=== PATIENT | male | born 1960 | race Caucasian/White ===

== ENCOUNTER 2019-12-16 10:30 | Outpatient (CLI) | payer MEDICAID, SELFPAY ==
--- NOTE | 2019-12-16 10:34 | MR_ITS ---
WS: [id number] MRI CERVICAL SPINE HISTORY: CERVICAL DEGENERATIVE JOINT DISEASE COMPARISON: Cervical spine CT 06/18/2015. Normal cervical alignment. No marrow edema or fracture. There is mild disc desiccation throughout. Endplate osteophytes throughout the cervical spine. Signal within the cord is normal. Craniocervical junction, C1 and C2 relationship, odontoid process and soft tissues are normal. C2-C3: Shallow central disc protrusion without stenosis. C3-C4: Mild osteophytic ridging. No significant stenosis. C4-C5: Diffuse annular disc bulging and mild osteophytic ridging. There is effacement of ventral CSF and facet joint arthritis. Mild central and bilateral foraminal stenosis. C5-C6: Complete effacement of CSF. There is significant deformity of the thecal sac due to combinatio n of disc and osteophyte disease. Moderate to severe central and bilateral foraminal stenosis. C6-C7: Mild annular disc bulging bilateral disc osteophyte complexes, greatest on the LEFT causing mi ld narrowing of the proximal foramen. Mild bilateral foraminal narrowing and mild central stenosis. C7-T1: Normal. Paraspinal soft tissue are normal. MR/MR cervical spin wo con* [id number] IMPRESSION: 1. Quality of examination is limited by body habitus. 2. Moderate to severe central and bilateral foraminal stenosis at C5-6 due to combination of disc and facet disease. 3. Mild central and bilateral foraminal stenosis at C4-5 due to disc osteophyt e disease. 4. Mild central and bilateral foraminal stenosis at C6-7 due to disc osteophyt e disease.
== END 2019-12-16 10:31 | disposition home or self-care (01) ==
LOC: RADSHAW 10:33
PROVIDERS: PCP Nurse Practitioner Family; Visit Provider Nurse Practitioner Family
DX: M47.812 Spondylosis without myelopathy or radiculopathy, cervical region (principal); M48.02 Spinal stenosis, cervical region; M25.78 Osteophyte, vertebrae
CPT/HCPCS: 72141

== ENCOUNTER 2020-02-22 07:43 | Outpatient (CLI) | payer MEDICAID, SELFPAY ==
--- NOTE | 2020-02-22 07:56 | MR_ITS ---
WS: [id number] MRI LUMBAR SPINE NONCONTRAST TECHNIQUE: Sagittal T1, T2 and STIR imaging. Axial T1 and T2 imaging. CLINICAL INFORMATION: LOW BACK PAIN COMPARISON: November 03, 2014 FINDINGS: Normal lumbar alignment. No acute compression. Mild disc bulging L2-3, L3-4, L4-5. No acute compressi on fractures. Disc bulging L2-L3 and L3-L4 progressed since 2014 L1-L2: Normal. L2-L3: Shallow broad-based disc bulging with impingement on the left subarticular recess and traversi ng left L3 nerve root. Moderate central canal stenosis. Small bilateral foraminal protrusions with co ntact of the exiting L2 nerve roots bilaterally with mild to moderate foraminal narrowing. L3-L4: Mild annular bulging. Slight effacement of ventral thecal sac. Mild central canal stenosis. Sm all right foraminal protrusion with mild right and no significant left foraminal narrowing. Mild face t arthropathy. L4-L5: Mild disc bulging with slight effacement of ventral thecal sac. Impingement on the left subart icular recess and traversing left L5 nerve root. Mild central canal stenosis. Left foraminal protrusi on with contact of the far exiting left L4 nerve root. Mild bilateral foraminal narrowing. Mild facet arthropathy. L5-S1: No significant disc bulging. Mild facet arthropathy. Spinal canal and foramen are patent. Visualized pelvic bony structures: Normal. Paravertebral soft tissues: Normal. MR/MR lumbar spine wo con* [id number] IMPRESSION: 1. Normal lumbar alignment. No acute compression. Disc bulging worse at L2-L3 L3-L4 and L4-L5. 2. Moderate central canal stenosis L2-3 with impingement on the left subarticu lar recess and traversing left L3 nerve root. 3. Mild central canal stenosis L3-L4 and L4-L5. 4. Small foraminal protrusions worse at right L2-3, and left L4-5 with encroac hment on the exiting nerve roots at these levels. 5. Mild to moderate facet arthropathy L3-L5.
== END 2020-02-22 07:44 | disposition home or self-care (01) ==
LOC: RADWPI 07:45
PROVIDERS: PCP Nurse Practitioner Family; Visit Provider Neurological Surgery
DX: R27.0 Ataxia, unspecified (principal); M51.26 Other intervertebral disc displacement, lumbar region; M48.061 Spinal stenosis, lumbar region without neurogenic claudication; M47.816 Spondylosis without myelopathy or radiculopathy, lumbar region
CPT/HCPCS: 72148

== ENCOUNTER 2021-10-28 14:36 | Emergency (ER) | payer MEDICAID, SELFPAY ==
[2021-10-28] VITALS (7 sets, daily range): BP systolic 102–153; BP diastolic 57–80; PULSE 66–86; RESP 16–18; TEMP 36.4; O2SAT 93–98; BMI 28.2
--- NOTE | 2021-10-28 16:43 | ED_ITS ---
Documented by User: Maggy Meyer MD 10/28/21 18:30 HPI - General Adult General: Chief complaint: General Medical Stated complaint: Abd pains, N/V, hurting all over Time Seen by Provider: 10/28/21 16:25 History of Present Illness: This patient is a 61 year old male presenting with complaint of hurting all over. He is having pain all over his body but worse on the right side. He says that it started 7 days ago but got worse 3 days ago and he hasn't been able to get out bed since Friday. He has had chills and sweats - he hasn't taken his temp. He has had nausea and hasn't eaten or drank anything since Friday. He apparently hasn't urinated since Friday either. He denies sore throat, runny nose. He did have a headache but gone now, and he has a chronic cough from smoking. He has had heart attacks but says that this doesn't feel like a heart attack. Nothing makes his symptoms better or worse. He has not taken anything at home to treat the symptoms. Associated symptoms: Reports diaphoresis, malaise and nausea; Deny chest pain, dyspnea, headache(s), rash or vomiting Review of Systems Const: Reports: chills, body aches, change in appetite, fatigue, malaise and diaphoresis Eyes: Denies: change in vision ENMT: Denies: odynophagia Card: Denies: chest pain or swelling of feet/ankles Resp: Reports: productive cough; Denies: dyspnea or non-productive cough GI: Reports: nausea; Denies: abdominal pain, vomiting or diarrhea : Reports: oliguria; Denies: flank pain Musc: Reports: neck pain and back pain Skin/Breast: Denies: rash Neuro: Reports: weakness in extremities; Denies: headache(s) or numbness in extremities Endo: Denies: polydipsia [place]/Lymph: Denies: easy bruising or easy bleeding PFSH ED PFSH: Medical History Bipolar disorder CAD (coronary atherosclerotic disease) Chest pain, atypical COPD (chronic obstructive pulmonary disease) Dyslipidemia 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 HTN (hypertension) Ischemic cardiomyopathy Myocardial infarct, old PAD (peripheral artery disease) Tobacco abuse Surgical History S/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) Family History Father Cancer Social History (Updated 01/18/20 @ 11:12 by EMBER Camilo) Smoking and tobacco status: current every day smoker Alcohol intake: never Current gender identity: Male Physical Exam Const: COMMON NORMALS: no acute distress, patient oriented x3, no limitations and alert GENERAL APPEARANCE: cooperative and comfortable HENMT: HEAD & SCALP: normal to inspection FACE & SINUS: normal facial exam Eye: GENERAL EYE: appearance normal, both eyes and all related structures Neck/C-Spine: COMMON NORMALS: supple, no meningeal signs and no JVD Chest: COMMONS NORMALS: normal inspection of the chest Resp: COMMON NORMALS: normal respiratory effort, No use of accessory muscles and clear to auscultation bilaterally AUSCULTATION: clear to auscultation bilaterally Cardio: COMMON NORMALS: no JVD, regular rate, regular rhythm and No murmurs present (Cardio) RATE: regular rate RHYTHM: regular rhythm GI: COMMON NORMALS: Normal to inspection, nondistended, normoactive bowel sounds present, Soft to palpation and non-tender INSPECTION: Yes normal to inspection AUSCULTATION: Yes normoactive bowel sounds PALPATION: Yes Soft to palpation Back/Pelvis: COMMON NORMALS: thoracic and lumbar spine normal to inspection Extremity: COMMON NORMALS: normal to inspection Neuro: COMMON NORMALS: patient oriented x3, moves all extremities, no focal motor deficits and no sensory deficits noted SENSORIUM/ORIENTATION: Yes alert MENINGEAL SIGNS: Yes no meningeal signs Psych: COMMON NORMALS: mental status grossly normal, cooperative and normal affect Skin: COMMON NORMALS: no rashes or lesions noted and turgor normal GENERAL SKIN EXAM: no rashes or lesions noted and turgor normal Course Vital Signs: Vital signs: Vital Signs Temperature 97.5 F L 10/28/21 14:57 Pulse Rate 66 10/28/21 20:00 Respiratory Rate 16 10/28/21 20:00 Blood Pressure 121/69 10/28/21 20:00 Pulse Oximetry 93 10/28/21 20:00 Oxygen Delivery Me thod 10/28/21 18:32 MDM - General Adult Medical Decision Making Generalized body aches for a week - no focal neuro findings. No abdominal tenderness. Labs with normal CBC, elevated LFTs but only slightly. Some evidence of dehydration. IV fluids going. UA pending. Care turned over to Dr. Long at shift change. Lab Data : 10/28/21 16:55 10/28/21 16:55 Laboratory Results WBC 5.3 10^3/uL (4.0-10.0) 10/28/21 16:55 RBC 4.94 10^6/uL (4.1-5.3) 10/28/21 16:55 Hgb 15.0 g/dL (11.7-16.6) 10/28/21 16:55 Hct 44.4 % (42.0-52.0) 10/28/21 16:55 MCV 89.9 fl (80-94) 10/28/21 16:55 MCH 30.4 pg (28.0-34.0) 10/28/21 16:55 MCHC 33.8 g/dL (30.0-36.0) 10/28/21 16:55 RDW 12.1 % (12.1-15.1) 10/28/21 16:55 Plt Count 130 10^3/cmm (130-400) 10/28/21 16:55 MPV 9.9 fL (7.4-10.4) 10/28/21 16:55 Neut % (Auto) 62.3 % 10/28/21 16:55 Lymph % (Auto) 20.9 % 10/28/21 16:55 [place] % (Auto) 15.0 % 10/28/21 16:55 Eos % (Auto) 0.6 % 10/28/21 16:55 Baso % (Auto) 0.8 % 10/28/21 16:55 Neut # (Auto) 3.29 10^3/uL (1.8-7.7) 10/28/21 16:55 Lymph # (Auto) 1.1 10^3/uL (0.8-4.8) 10/28/21 16:55 [place] # (Auto) 0.8 10^3/uL (0.2-0.9) 10/28/21 16:55 Eos # (Auto) 0.0 10^3/uL (0.0-0.8) 10/28/21 16:55 Baso # (Auto) 0.0 10^3/uL (0.0-0.1) 10/28/21 16:55 Nucleated RBC % (auto) 0 % 10/28/21 16:55 Nucleated RBCs # 0.0 /100WBC 10/28/21 16:55 Sodium 134 mmol/L (136-145) L 10/28/21 16:55 Potassium 4.1 mmol/L (3.5-5.1) 10/28/21 16:55 Chloride 98 mmol/L (98-107) 10/28/21 16:55 Carbon Dioxide 23 mmol/L (22-29) 10/28/21 16:55 Anion Gap 17.1 (5-19) 10/28/21 16:55 BUN 16 mg/dL (8-23) 10/28/21 16:55 Creatinine 1.1 mg/dL (0.7-1.2) 10/28/21 16:55 GFR Calculation 67.8 mL/min (90-130) L 10/28/21 16:55 Glucose 102 mg/dL (65-115) 10/28/21 16:55 Calculated Osmolality 279 mOsm/kg (285-295) L 10/28/21 16:55 Calcium 9.5 mg/dL (8.5-10.5) 10/28/21 16:55 Total Bilirubin 0.3 mg/dL (0.15-1.2) 10/28/21 16:55 AST 51 U/L (0-40) H 10/28/21 16:55 ALT 77 U/L (0-41) H 10/28/21 16:55 Alkaline Phosphatase 80 U/L (40-130) 10/28/21 16:55 Creatine Kinase 116 U/L (39-308) 10/28/21 16:55 Total Protein 7.6 g/dL (6.6-8.7) 10/28/21 16:55 Albumin 4.5 g/dL (3.5-5.2) 10/28/21 16:55 Globulin 3.1 g/dL (1.3-4.6) 10/28/21 16:55 Urine Color Yellow (Yellow) 10/28/21 19:11 Urine Appearance Clear (CLEAR) 10/28/21 19:11 Urine pH 5 (5-7) 10/28/21 19:11 Ur Specific [place] 1.020 (1.005-1.030) 10/28/21 19:11 Urine Protein Neg (Negative) 10/28/21 19:11 Urine Glucose (UA) 1+ (Normal) H 10/28/21 19:11 Urine Ketones 1+ (Negative) H 10/28/21 19:11 Urine Blood 2+ (Negative) H 10/28/21 19:11 Urine Nitrate Negative (Negative) 10/28/21 19:11 Urine Bilirubin Neg (Negative) 10/28/21 19:11 Urine Urobilinogen Norm mg/dL (Negative) 10/28/21 19:11 Ur Leukocyte Esterase Negative (Negative) 10/28/21 19:11 Urine RBC 0-4 /hpf (0-2) H 10/28/21 19:11 Urine WBC 0-4 /hpf (0-5) H 10/28/21 19:11 Ur Squamous Epith Cells 0-4 /hpf (0-5) H 10/28/21 19:11 Amorphous Sediment Not Reportable 10/28/21 19:11 Urine Bacteria Trace /hpf (NONE) 10/28/21 19:11 Hyaline Casts 0-4 /lpf H 10/28/21 19:11 Urine Mucus 2+ /hpf 10/28/21 19:11 Discharge Plan Discharge Patient Disposition: Home Clinical Impression: Acute dehydration, Myalgia Condition: Stable Prescriptions: No Action aspirin [Adult Low Dose Aspirin] 81 mg tablet,delayed release (DR/EC) 81 mg PO DAILY nitroglycerin [Nitrostat] 0.4 mg tablet, sublingual 0.4 mg SUBLINGUAL Q5M PRN (Reason: Chest Pain) spironolactone 25 mg tablet 25 mg PO DAILY 90 Days Qty: 90 3RF clopidogrel 75 mg tablet 75 mg PO DAILY Qty: 90 3RF carvedilol 3.125 mg tablet 3.125 mg PO BID Qty: 180 3RF lisinopril 20 mg tablet 20 mg PO DAILY Focus Factor 1 cap PO DAILY simvastatin 40 mg tablet 40 mg PO BEDTIME Discharge Orders: Discharge ED (Routine); Ordered 10/28/21 Ordered By: Dustin Long Referrals: Angelita Goss FNP [Primary Care Provider] - 1-3 days Patient Instructions: Myalgia, Dehydration (ED) Activity Restrictions/Additional Instructions: Monitor closely for fever. Hydrate orally, especially for the next 48 hours. Stay out of the heat. See your doctor this coming week and follow-up. Return for significant fever, change in mental status, worsening pain, other concerning symptoms. Call for the results of your COVID-19 test as early as tomorrow. 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 HTN (hypertension) Ischemic cardiomyopathy Myocardial infarct, old PAD (peripheral artery disease) Tobacco abuse Surgical History 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 No abdominal tenderness. Labs with normal CBC, elevated LFTs but only slightly. Some evidence of dehydration. IV fluids going. UA pending. Care turned over to Dr. Long at shift change. Urinalysis is negative. Labs are mildly underwhelming. With mild transaminitis, COVID-19 could be considered. He has been hydrated in the ER and is feeling improved. He will be discharged home for oral hydration. COVID-19 PCR will be done on discharge. Tick panel will also be sent. Lab Data : 10/28/21 16:55 10/28/21 16:55 Laboratory Results WBC 5.3 10^3/uL (4.0-10.0) 10/28/21 16:55 RBC 4.94 10^6/uL (4.1-5.3) 10/28/21 16:55 Hgb 15.0 g/dL (11.7-16.6) 10/28/21 16:55 Hct 44.4 % (42.0-52.0) 10/28/21 16:55 MCV 89.9 fl (80-94) 10/28/21 16:55 MCH 30.4 pg (28.0-34.0) 10/28/21 16:55 MCHC 33.8 g/dL (30.0-36.0) 10/28/21 16:55 RDW 12.1 % (12.1-15.1) 10/28/21 16:55 Plt Count 130 10^3/cmm (130-400) 10/28/21 16:55 MPV 9.9 fL (7.4-10.4) 10/28/21 16:55 Neut % (Auto) 62.3 % 10/28/21 16:55 Lymph % (Auto) 20.9 % 10/28/21 16:55 [place] % (Auto) 15.0 % 10/28/21 16:55 Eos % (Auto) 0.6 % 10/28/21 16:55 Baso % (Auto) 0.8 % 10/28/21 16:55 Neut # (Auto) 3.29 10^3/uL (1.8-7.7) 10/28/21 16:55 Lymph # (Auto) 1.1 10^3/uL (0.8-4.8) 10/28/21 16:55 [place] # (Auto) 0.8 10^3/uL (0.2-0.9) 10/28/21 16:55 Eos # (Auto) 0.0 10^3/uL (0.0-0.8) 10/28/21 16:55 Baso # (Auto) 0.0 10^3/uL (0.0-0.1) 10/28/21 16:55 Nucleated RBC % (auto) 0 % 10/28/21 16:55 Nucleated RBCs # 0.0 /100WBC 10/28/21 16:55 Sodium 134 mmol/L (136-145) L 10/28/21 16:55 Potassium 4.1 mmol/L (3.5-5.1) 10/28/21 16:55 Chloride 98 mmol/L (98-107) 10/28/21 16:55 Carbon Dioxide 23 mmol/L (22-29) 10/28/21 16:55 Anion Gap 17.1 (5-19) 10/28/21 16:55 BUN 16 mg/dL (8-23) 10/28/21 16:55 Creatinine 1.1 mg/dL (0.7-1.2) 10/28/21 16:55 GFR Calculation 67.8 mL/min (90-130) L 10/28/21 16:55 Glucose 102 mg/dL (65-115) 10/28/21 16:55 Calculated Osmolality 279 mOsm/kg (285-295) L 10/28/21 16:55 Calcium 9.5 mg/dL (8.5-10.5) 10/28/21 16:55 Total Bilirubin 0.3 mg/dL (0.15-1.2) 10/28/21 16:55 AST 51 U/L (0-40) H 10/28/21 16:55 ALT 77 U/L (0-41) H 10/28/21 16:55 Alkaline Phosphatase 80 U/L (40-130) 10/28/21 16:55 Creatine Kinase 116 U/L (39-308) 10/28/21 16:55 Total Protein 7.6 g/dL (6.6-8.7) 10/28/21 16:55 Albumin 4.5 g/dL (3.5-5.2) 10/28/21 16:55 Globulin 3.1 g/dL (1.3-4.6) 10/28/21 16:55 Urine Color Yellow (Yellow) 10/28/21 19:11 Urine Appearance Clear (CLEAR) 10/28/21 19:11 Urine pH 5 (5-7) 10/28/21 19:11 Ur Specific [place] 1.020 (1.005-1.030) 10/28/21 19:11 Urine Protein Neg (Negative) 10/28/21 19:11 Urine Glucose (UA) 1+ (Normal) H 10/28/21 19:11 Urine Ketones 1+ (Negative) H 10/28/21 19:11 Urine Blood 2+ (Negative) H 10/28/21 19:11 Urine Nitrate Negative (Negative) 10/28/21 19:11 Urine Bilirubin Neg (Negative) 10/28/21 19:11 Urine Urobilinogen Norm mg/dL (Negative) 10/28/21 19:11 Ur Leukocyte Esterase Negative (Negative) 10/28/21 19:11 Urine RBC 0-4 /hpf (0-2) H 10/28/21 19:11 Urine WBC 0-4 /hpf (0-5) H 10/28/21 19:11 Ur Squamous Epith Cells 0-4 /hpf (0-5) H 10/28/21 19:11 Amorphous Sediment Not Reportable 10/28/21 19:11 Urine Bacteria Trace /hpf (NONE) 10/28/21 19:11 Hyaline Casts 0-4 /lpf H 10/28/21 19:11 Urine Mucus 2+ /hpf 10/28/21 19:11 Discharge Plan Discharge Patient Disposition: Home Clinical Impression: Acute dehydration, Myalgia Condition: Stable Prescriptions: No Action aspirin [Adult Low Dose Aspirin] 81 mg tablet,delayed release (DR/EC) 81 mg PO DAILY nitroglycerin [Nitrostat] 0.4 mg tablet, sublingual 0.4 mg SUBLINGUAL Q5M PRN (Reason: Chest Pain) spironolactone 25 mg tablet 25 mg PO DAILY 90 Days Qty: 90 3RF clopidogrel 75 mg tablet 75 mg PO DAILY Qty: 90 3RF carvedilol 3.125 mg tablet 3.125 mg PO BID Qty: 180 3RF lisinopril 20 mg tablet 20 mg PO DAILY Focus Factor 1 cap PO DAILY simvastatin 40 mg tablet 40 mg PO BEDTIME Discharge Orders: Discharge ED (Routine); Ordered 10/28/21 Ordered By: Dustin Long Referrals: Angelita Goss FNP [Primary Care Provider] - 1-3 days Patient Instructions: Myalgia, Dehydration (ED) Activity Restrictions/Additional Instructions: Monitor closely for fever. Hydrate orally, especially for the next 48 hours. Stay out of the heat. See your doctor this coming week and follow-up. Return for significant fever, change in mental status, worsening pain, other concerning symptoms. Call for the results of your COVID-19 test as early as tomorrow. Serum testing for tick fever will be completed in 48 to 72 hours Coding Level of Care Code ED [employer] for Katarzyna Fwcourtney Exam Comprehensive
[2021-10-28] MEDS: ondansetron 2 mg/ML SDV 2 mL 4 MG IVP (16:58)
[2021-10-28] MEDS: sodium chloride 0.9% 1,000 ML 999 ML IV (16:58)
[2021-10-28 17:13] LABS: Basophils % 0.8 %; Eosinophils % 0.6 %; Hematocrit 44.4 % (42.0-52.0); Lymphocytes # 1.1 10^3/uL (0.8-4.8); Lymphocytes % 20.9 %; Mean Corpuscular HGB Conc 33.8 g/dL (30.0-36.0); Mean Corpuscular Hemoglobin 30.4 pg (28.0-34.0); Mean Corpuscular Volume 89.9 fl (80-94); Mean Platelet Volume 9.9 fL (7.4-10.4); Monocytes # 0.8 10^3/uL (0.2-0.9); Neutrophils # 3.29 10^3/uL (1.8-7.7); Neutrophils % 62.3 %; Nucleated Red Blood Cells % 0 %; Platelet Count 130 10^3/cmm (130-400); Red Blood Count 4.94 10^6/uL (4.1-5.3); Red Cell Distribution Width 12.1 % (12.1-15.1); White Blood Count 5.3 10^3/uL (4.0-10.0)
[2021-10-28 17:37] LABS: Alanine Aminotransferase 77 U/L (0-41); Albumin Level 4.5 g/dL (3.5-5.2); Alkaline Phosphatase 80 U/L (40-130); Anion Gap 17.1 (5-19); Aspartate Amino Transferase 51 U/L (0-40); Blood Urea Nitrogen 16 mg/dL (8-23); Calcium 9.5 mg/dL (8.5-10.5); Carbon Dioxide 23 mmol/L (22-29); Chloride 98 mmol/L (98-107); Creatine Phosphokinase 116 U/L (39-308); Globulin 3.1 g/dL (1.3-4.6); Glomerular Filtration Rate 67.8 mL/min (90-130); Glucose 102 mg/dL (65-115); Osmolality Calculated 279 mOsm/kg (285-295); Potassium 4.1 mmol/L (3.5-5.1); Sodium 134 mmol/L (136-145); Total Bilirubin 0.3 mg/dL (0.15-1.2); Total Protein 7.6 g/dL (6.6-8.7)
[2021-10-28] MEDS: ketorolac 30 mg/mL INJ 15 MG IVP (18:29)
[2021-10-28 20:28] LABS: Protein Urine Neg (Negative); Urine Appearance Clear (CLEAR); Urine Color Yellow (Yellow); pH Urine 5 (5-7)
[2021-10-28 20:29] LABS: Add Urine Microscopic? YES; Bilirubin Urine Neg (Negative); Blood Urine 2+ (Negative); Glucose Urine UA 1+ (Normal); Ketones Urine 1+ (Negative); Leukocyte Esterase Urine Negative (Negative); Nitrate Urine Negative (Negative); Urobilinogen Urine Norm (Negative)
[2021-10-28 20:30] LABS: Add Urine Culture? No; Bacteria Urine TRACE /hpf; Hyaline Casts Urine 0-4 /lpf; Mucus Urine 2+ /hpf; RBC Urine 0-4 /hpf (0-2); Squamous Epithelial Cell Urine 0-4 /hpf (0-5); WBC Urine 0-4 /hpf (0-5)
[2021-10-28] MEDS: dexamethasone 4 mg/mL INJ 8 MG IVP (21:22)
[2021-10-28 23:27] LABS: Adenovirus Not Detected (NOT DETECT); Chlamydia Pneumoniae Not Detected (NOT DETECT); Coronavirus 229E,HKU1,NL63,OC4 Not Detected (NOT DETECT); Human Metapneumovirus Not Detected (NOT DETECT); Human Rhinovirus/Enterovirus Not Detected (NOT DETECT); Influenza A Not Detected (NOT DETECT); Influenza A H1 Not Detected (NOT DETECT); Influenza A H1-2009 Not Detected (NOT DETECT); Influenza A H3 Not Detected (NOT DETECT); Influenza B Not Detected (NOT DETECT); Mycoplasma Pneumoniae Not Detected (NOT DETECT); Parainfluenza Virus Type 1 Not Detected (NOT DETECT); Parainfluenza Virus Type 2 Not Detected (NOT DETECT); Parainfluenza Virus Type 3 Not Detected (NOT DETECT); Parainfluenza Virus Type 4 Not Detected (NOT DETECT); Respiratory Syncytial Virus A Not Detected (NOT DETECT); Respiratory Syncytial Virus B Not Detected (NOT DETECT); SARS-COV-2 Detected (NOT DETECT)
[2021-10-29 00:26] VITALS: BP 132/49; PULSE 70; RESP 18; O2SAT 94
[2021-10-30 14:33] LABS: Lyme AB Screen <0.90 index
[2021-11-03 21:07] LABS: E. Chaffeensis AB IGG <1:64; E. Chaffeensis AB IGM <1:20
[2021-11-17 16:03] LABS: RMSF IGG DETECTED; RMSF IGM NOT DETECTED
== END 2021-10-29 00:27 | disposition home or self-care (01) ==
PROVIDERS: Emergency Medicine; Emergency Provider Emergency Medicine; PCP Nurse Practitioner Family
DX: U07.1 COVID-19 (principal); E86.0 Dehydration; M79.10 Myalgia, unspecified site; Z79.82 Long term (current) use of aspirin; Z79.02 Long term (current) use of antithrombotics/antiplatelets; I25.10 Atherosclerotic heart disease of native coronary artery without angina pectoris; J44.9 Chronic obstructive pulmonary disease, unspecified; E78.5 Hyperlipidemia, unspecified; I10 Essential (primary) hypertension; I25.2 Old myocardial infarction; F17.210 Nicotine dependence, cigarettes, uncomplicated
CPT/HCPCS: 80053; 81001; 82550; 85025; 86618; 86666; 86757; 87635; 96361; 96374; 96375; 99284; J1100; J1885; J2405; J7030

== ENCOUNTER 2021-11-01 11:48 | Emergency (ER) | payer MEDICAID, SELFPAY ==
[2021-11-01 12:18] VITALS: BP 107/70; PULSE 70; RESP 16; TEMP 36.7; O2SAT 98
--- NOTE | 2021-11-01 13:52 | CT_ITS ---
WS: [id number] CT ABDOMEN AND PELVIS WITH CONTRAST HISTORY: Abdominal pain. Bloating. TECHNIQUE: Imaging performed of the abdomen and pelvis with IV contrast. Single phase imaging of the abdomen. Coronal and sagittal reformats are submitted. All CT scans at [facility] use at noemy st one of these dose optimization techniques: automated exposure control; mA and/or kV adjustment per patient size (includes targeted exams where dose is matched to clinical indication); or iterative re construction. IV CONTRAST: Omnipaque 350; 80 mL IV. Oral contrast: No DLP: 521.91 mGy.cm COMPARISON: 02/22/2015 Lower thorax: Lung bases are clear. Heart is normal size. Small hiatal hernia. Liver/biliary system: Normal size with no intrahepatic dilatation. Gallbladder: Normal. No gallstones or wall thickening. No pericholecystic fluid. Pancreas: Normal size pancreas and pancreatic duct. No adjacent inflammation. Spleen: Normal size spleen with several granulomata. Adrenal glands: Normal. Right kidney: Normal. Left kidney: Normal size kidney. No solid mass. Low-attenuation nodule measures 6 mm the lower pole. 2 small to characterize. Aorta: Extensive atherosclerotic plaque within the aorta. Abrupt termination of the IV contrast just below the level of the SMA consistent with a complete occlusion of the aorta. There is still contrast enhancement of the renal arteries. There is a focal filling defect with near complete occlusion invo lving the proximal SMA. Thrombus measures over a length of at least 1.6 cm in the proximal SMA. Mild atherosclerotic plaque at the origin of the celiac axis. Patient has bilateral kissing iliac artery stents. No contrast extending into the iliac arteries. The re is reconstitution of flow in the distal external iliac arteries. Lymphadenopathy: None. Free fluid: None. GI tract: Normally distended stomach. Thickening and abnormal enhancement involving the duodenal C-lo op. There is an area of wall thickening and luminal narrowing predominantly in the second portion of the duodenum which is probably related to ischemia. This could be a branch of the SMA or the pancreat icoduodenal artery. Minimal increase fluid in the small bowel. Questionable wall thickening of the di stal ileum near the terminal ileum. No ischemic changes in the colon. Normal appendix. Abdominal wall: Fat containing umbilical hernia. Pelvis: Normally distended bladder. Mild prostate gland enlargement encroaching into the bladder. No free fluid or adenopathy. Bones: Unremarkable. CT/CT abdomen pelvis w con* [id number] IMPRESSION: 1. 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 No c ontrast enhancement below the renal arteries. There is still enhancement of the renal arteries. 2. Focal segment thrombus in the proximal SMA with near complete occlusion. Ch anges in the duodenal C-loop suspicious for ischemia. Ischemia needs to be rule d out before other etiologies such as duodenitis or mass should be excluded. 3. Normal appendix. 4. No free fluid or free air. Notified Lorenzo Pelletier MD at 11/01/2021 3:11 PM.
--- NOTE | 2021-11-01 13:54 | W.ED.GENADLT ---
HPI - General Adult General: Chief complaint: Abdominal Pain Stated complaint: ABD Pain-sent by urgent care Time Seen by Provider: 11/01/21 13:34 History of Present Illness: Patient is a 61-year-old male without any significant past medical history, recently diagnosed COVID who presents the emergency room for evaluation of diffuse abdominal pain since Friday (5 days ago). Patient tells me that he has been having ongoing abdominal pain with significant nausea. Patient describes pain as pain is intermittent and colicky. Worse with p.o. intake. Patient denies any melena medic easier. Patient denies any diarrhea. Patient has no complaints. Patient denies any history of renal colic. Patient denies any cough or chest pain. Patient reports the pain is so significant decided to come to the emergency for further evaluation. Patient has no complaints at this time. Onset:5 days ago Duration:5 days Location:home Severity:moderate Associated symptoms: Reports nausea; Deny chest pain, dyspnea, rash, palpitations or vomiting Review of Systems Const: Denies: fever(s) or chills Eyes: Denies: change in vision ENMT: Denies: mouth pain Card: Denies: chest pain or palpitations Resp: Denies: dyspnea or non-productive cough GI: Reports: abdominal pain (+diffuse abd pain) and nausea; Denies: vomiting or diarrhea : Denies: dysuria Musc: Denies: extremity pain Skin/Breast: Denies: rash or new lesions Neuro: Denies: weakness in extremities Psych: Reports: other (Normal mood) [place]/Lymph: Denies: easy bruising PFSH ED PFSH: Medical History Bipolar disorder CAD (coronary atherosclerotic disease) Chest pain, atypical COPD (chronic obstructive pulmonary disease) Dyslipidemia 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 HTN (hypertension) Ischemic cardiomyopathy Myocardial infarct, old PAD (peripheral artery disease) Tobacco abuse Surgical History 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) Family History Father Cancer Social History Smoking and tobacco status: current every day smoker Alcohol intake: never Current gender identity: Male Physical Exam Const: COMMON NORMALS: alert HENMT: COMMON NORMALS: atraumatic HEAD & SCALP: atraumatic MOUTH: moist mucous membranes not abnormal Eye: COMMON NORMALS: EOMs intact bilaterally and conjunctivae normal CONJUNCTIVA: Yes conjunctivae normal Neck/C-Spine: COMMON NORMALS: full ROM and supple Resp: COMMON NORMALS: normal respiratory effort and clear to auscultation bilaterally AUSCULTATION: clear to auscultation bilaterally Cardio: COMMON NORMALS: regular rate RATE: regular rate GI: COMMON NORMALS: Soft to palpation PALPATION: Yes Soft to palpation OTHER: +Moderate diffuse TTP. NO guarding rebound, guarding, rigidity. No CVA tenderness to percussion. Neg Zambrano/Neg McBurney's point tenderness, no suprabupic tenderness to palpation. Extremity: COMMON NORMALS: full ROM Neuro: SENSORIUM/ORIENTATION: Yes alert MOTOR EXAM: No Abnormal motor strength present and Other motor observations present (no focal motor deficits) Psych: COMMON NORMALS: speech normal SPEECH: Yes normal speech MOOD & AFFECT: Yes euthymic mood Course Vital Signs: Vital signs: Vital Signs Temperature 98.1 F 11/01/21 12:18 Pulse Rate 70 11/01/21 12:18 Respiratory Rate 14 11/01/21 14:09 Blood Pressure 107/70 11/01/21 12:18 Pulse Oximetry 96 11/01/21 14:09 Oxygen Delivery Me thod 11/01/21 12:18 [facility] - General Adult Medical Decision Making Patient is a 61-year-old male without any significant past medical history, recently diagnosed COVID who presents the emergency room for evaluation of diffuse abdominal pain since Friday (5 days ago). On physical exam, patient is hemodynamically stable. He has diffuse abdominal tenderness to palpation. No guarding or rebound tenderness. White count of 7.5. Sodium 130. Lactate 1.4. CT ab pelvis showed complete occlusion of the abdominal aorta below the level of renal arteries. Patient also has focal segments of thrombus in the proximal SMA. This was discussed with Dr. Zavaleta radiologist. Patient continues to be comfortable at this time. Case was discussed with Dr. Pena who agreed with the transfer to [facility] for further evaluation of lesions. Disposition: Transfer to outside hospital Lab Data : 11/01/21 13:50 11/01/21 13:50 Radiology Impressions Abdomen/Pelvis CT 11/01/21 13:52 IMPRESSION: 1. 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 No contrast enhancement below the renal arteries. There is still enhancement of the renal arteries. 2. Focal segment thrombus in the proximal SMA with near complete occlusion. Changes in the duodenal C-loop suspicious for ischemia. Ischemia needs to be ruled out before other etiologies such as duodenitis or mass should be excluded. 3. Normal appendix. 4. No free fluid or free air. Notified Lorenzo Pelletier MD at 11/01/2021 3:11 PM. Laboratory Results WBC 7.5 10^3/uL (4.0-10.0) 11/01/21 13:50 RBC 5.21 10^6/uL (4.1-5.3) 11/01/21 13:50 Hgb 15.9 g/dL (11.7-16.6) 11/01/21 13:50 Hct 46.3 % (42.0-52.0) 11/01/21 13:50 MCV 88.9 fl (80-94) 11/01/21 13:50 MCH 30.5 pg (28.0-34.0) 11/01/21 13:50 MCHC 34.3 g/dL (30.0-36.0) 11/01/21 13:50 RDW 11.9 % (12.1-15.1) L 11/01/21 13:50 Plt Count 122 10^3/cmm (130-400) L 11/01/21 13:50 MPV 10.2 fL (7.4-10.4) 11/01/21 13:50 Neut % (Auto) 65.7 % 11/01/21 13:50 Lymph % (Auto) 27.2 % 11/01/21 13:50 Carbon % (Auto) 5.6 % 11/01/21 13:50 Eos % (Auto) 0.9 % 11/01/21 13:50 Baso % (Auto) 0.3 % 11/01/21 13:50 Neut # (Auto) 4.94 10^3/uL (1.8-7.7) 11/01/21 13:50 Lymph # (Auto) 2.0 10^3/uL (0.8-4.8) 11/01/21 13:50 Carbon # (Auto) 0.4 10^3/uL (0.2-0.9) 11/01/21 13:50 Eos # (Auto) 0.1 10^3/uL (0.0-0.8) 11/01/21 13:50 Baso # (Auto) 0.0 10^3/uL (0.0-0.1) 11/01/21 13:50 Nucleated RBC % (auto) 0 % 11/01/21 13:50 Nucleated RBCs # 0.0 /100WBC 11/01/21 13:50 Sodium 130 mmol/L (136-145) L 11/01/21 13:50 Potassium 4.3 mmol/L (3.5-5.1) 11/01/21 13:50 Chloride 94 mmol/L (98-107) L 11/01/21 13:50 Carbon Dioxide 25 mmol/L (22-29) 11/01/21 13:50 Anion Gap 15.3 (5-19) 11/01/21 13:50 BUN 11 mg/dL (8-23) 11/01/21 13:50 Creatinine 0.7 mg/dL (0.7-1.2) 11/01/21 13:50 GFR Calculation 114.3 mL/min (90-130) 11/01/21 13:50 Glucose 95 mg/dL (65-115) 11/01/21 13:50 Calculated Osmolality 269 mOsm/kg (285-295) L 11/01/21 13:50 Lactate 1.4 mmol/L (0.5-2.2) 11/01/21 13:50 Calcium 9.7 mg/dL (8.5-10.5) 11/01/21 13:50 Total Bilirubin 0.3 mg/dL (0.15-1.2) 11/01/21 13:50 AST 34 U/L (0-40) 11/01/21 13:50 ALT 63 U/L (0-41) H 11/01/21 13:50 Alkaline Phosphatase 79 U/L (40-130) 11/01/21 13:50 Total Protein 7.4 g/dL (6.6-8.7) 11/01/21 13:50 Albumin 4.5 g/dL (3.5-5.2) 11/01/21 13:50 Globulin 2.9 g/dL (1.3-4.6) 11/01/21 13:50 Lipase 46 U/L (13-60) 11/01/21 13:50 Urine Color Yellow (Yellow) 11/01/21 16:05 Urine Appearance Clear (CLEAR) 11/01/21 16:05 Urine pH 5 (5-7) 11/01/21 16:05 Ur Specific [place] 1.010 (1.005-1.030) 11/01/21 16:05 Urine Protein Neg (Negative) 11/01/21 16:05 Urine Glucose (UA) Norm (Normal) 11/01/21 16:05 Urine Ketones Negative (Negative) 11/01/21 16:05 Urine Blood Neg (Negative) 11/01/21 16:05 Urine Nitrate Negative (Negative) 11/01/21 16:05 Urine Bilirubin Neg (Negative) 11/01/21 16:05 Urine Urobilinogen Norm mg/dL (Negative) 11/01/21 16:05 Ur Leukocyte Esterase Negative (Negative) 11/01/21 16:05 Discharge Plan Discharge Patient Disposition: Transfer to ED Clinical Impression: Abdominal pain, Aortic occlusion Condition: Stable Prescriptions: No Action aspirin [Adult Low Dose Aspirin] 81 mg tablet,delayed release (DR/EC) 81 mg PO QAM nitroglycerin [Nitrostat] 0.4 mg tablet, sublingual 0.4 mg SUBLINGUAL Q5M PRN (Reason: Chest Pain) lisinopril 20 mg tablet 20 mg PO QAM Focus Factor 1 cap PO DAILY simvastatin 40 mg tablet 40 mg PO QAM Paxlovid (EUA) 150 mg x 2- 100 mg tablet See Rx Instructions .ROUTE .COMPLEX Qty: 30 0RF Rx Instructions: take TWO 150 mg tablets of nirmatrelvir with ONE 100 mg tablet of ritonavir twice daily for 5 days Ivermectin Paste 1.87% See Rx Instructions .ROUTE .COMPLEX Rx Instructions: APPLIED TO BACK OF THROAT TWO TO THREE TIMES A DAY clopidogrel 75 mg tablet 75 mg PO QAM spironolactone 25 mg tablet 25 mg PO QAM carvedilol 3.125 mg tablet 6.25 mg PO QAM Referrals: Angelita Goss FNP [Primary Care Provider] - Discharge Diet: Advance as tolerated Discharge Activity: Increase activity as tolerated Patient Instructions: Abdominal Pain (ED) Coding Level of Care Code ED Member Services Coordinator for Chg Fwd Exam Comprehensive
[2021-11-01 14:02] LABS: Basophils % 0.3 %; Eosinophils # 0.1 10^3/uL (0.0-0.8); Eosinophils % 0.9 %; Hematocrit 46.3 % (42.0-52.0); Hemoglobin 15.9 g/dL (11.7-16.6); Lymphocytes % 27.2 %; Mean Corpuscular HGB Conc 34.3 g/dL (30.0-36.0); Mean Corpuscular Hemoglobin 30.5 pg (28.0-34.0); Mean Corpuscular Volume 88.9 fl (80-94); Mean Platelet Volume 10.2 fL (7.4-10.4); Monocytes # 0.4 10^3/uL (0.2-0.9); Monocytes % 5.6 %; Neutrophils # 4.94 10^3/uL (1.8-7.7); Neutrophils % 65.7 %; Nucleated Red Blood Cells % 0 %; Platelet Count 122 10^3/cmm (130-400); Red Blood Count 5.21 10^6/uL (4.1-5.3); Red Cell Distribution Width 11.9 % (12.1-15.1); White Blood Count 7.5 10^3/uL (4.0-10.0)
[2021-11-01] MEDS: sodium chloride 0.9% 1,000 ML 999 ML IV (14:08)
[2021-11-01 14:09] VITALS: RESP 14; O2SAT 96
[2021-11-01] MEDS: morphine 4 mg/mL SDV 1 mL IVP (14:09)
[2021-11-01] MEDS: ondansetron 2 mg/ML SDV 2 mL 4 MG IVP (14:09)
[2021-11-01 14:17] LABS: Lactate (Lactic Acid level) 1.4 mmol/L (0.5-2.2)
[2021-11-01 14:23] LABS: Alanine Aminotransferase 63 U/L (0-41); Albumin Level 4.5 g/dL (3.5-5.2); Alkaline Phosphatase 79 U/L (40-130); Anion Gap 15.3 (5-19); Aspartate Amino Transferase 34 U/L (0-40); Blood Urea Nitrogen 11 mg/dL (8-23); Calcium 9.7 mg/dL (8.5-10.5); Carbon Dioxide 25 mmol/L (22-29); Chloride 94 mmol/L (98-107); Globulin 2.9 g/dL (1.3-4.6); Glomerular Filtration Rate 114.3 mL/min (90-130); Glucose 95 mg/dL (65-115); Lipase 46 U/L (13-60); Osmolality Calculated 269 mOsm/kg (285-295); Potassium 4.3 mmol/L (3.5-5.1); Sodium 130 mmol/L (136-145); Total Bilirubin 0.3 mg/dL (0.15-1.2); Total Protein 7.4 g/dL (6.6-8.7)
[2021-11-01] MEDS: iohexol 350 mg/mL 100 mL Btl IV (14:35)
--- NOTE | 2021-11-01 15:52 | PC.PHAR ---
PT STATES HE TAKES CARE OF HIS OWN MEDICATIONS-PT STATES HE TOOK 3 TABS OF THE PAXLOVID FILLED ON 10/29/21 AND THEN THREW THE MEDICATION AWAY STATES LEFT A BAD TASTE IN HIS MOUTH AND MADE HIM SICK-PT STATES HE WENT TO THE FEED STORE AND BOUGHT IVERMECTIN PASTE 1.87% AND HAS BEEN USING TWO TO THREE TIMES A DAY-NOTES ARE MADE IN THE PHARMACY COMMENTS
[2021-11-01 16:27] LABS: Add Urine Microscopic? NO; Charge for UA Resulting for Rev
[2021-11-01 16:30] VITALS: BP 113/61; PULSE 64; RESP 14; O2SAT 98
[2021-11-01 16:35] LABS: Bilirubin Urine Neg (Negative); Blood Urine Neg (Negative); Glucose Urine UA Norm (Normal); Ketones Urine Negative (Negative); Leukocyte Esterase Urine Negative (Negative); Nitrate Urine Negative (Negative); Protein Urine Neg (Negative); Urine Appearance Clear (CLEAR); Urine Color Yellow (Yellow); Urobilinogen Urine Norm (Negative); pH Urine 5 (5-7)
[2021-11-01 17:30] VITALS: BP 141/63; PULSE 65; RESP 14; O2SAT 100
[2021-11-01 18:22] VITALS: BP 117/74; PULSE 70; RESP 14; O2SAT 100
== END 2021-11-01 18:28 ==
PROVIDERS: Emergency Provider Emergency Medicine; PCP Nurse Practitioner Family
DX: R10.9 Unspecified abdominal pain (principal); I70.0 Atherosclerosis of aorta; Z79.82 Long term (current) use of aspirin; Z79.02 Long term (current) use of antithrombotics/antiplatelets; I25.10 Atherosclerotic heart disease of native coronary artery without angina pectoris; J44.9 Chronic obstructive pulmonary disease, unspecified; E78.5 Hyperlipidemia, unspecified; I10 Essential (primary) hypertension; I25.2 Old myocardial infarction; F17.210 Nicotine dependence, cigarettes, uncomplicated
CPT/HCPCS: 74177; 80053; 81003; 83605; 83690; 85025; 96374; 96375; 99285; J2270; J2405; J7030; Q9967

== ENCOUNTER 2021-11-13 10:48 | Emergency (ER) | payer MEDICAID, SELFPAY ==
[2021-11-13] VITALS (9 sets, daily range): BP systolic 105–134; BP diastolic 62–82; PULSE 79–98; RESP 14–18; TEMP 36.8; O2SAT 94–100; BMI 27.4
--- NOTE | 2021-11-13 10:59 | ECG_ITS ---
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 Measurements Intervals Comfort Rate: 92 P: 71 WA: 143 QRS: 89 QRSD: 89 T: 58 QT: 346 QTc: 428 Interpretive Statements SINUS RHYTHM WITH OCCASIONAL VENTRICULAR PREMATURE COMPLEXES Compared to ECG 03/10/2017 23:21:37 Ventricular premature complex(es) now present Electronically Signed On 11-13-2021 18:09:41 CDT by Suzan Laguerre M.D. [id number] f
[2021-11-13 12:21] LABS: Basophils % 0.4 %; Eosinophils # 0.2 10^3/uL (0.0-0.8); Eosinophils % 1.7 %; Hematocrit 38.4 % (42.0-52.0); Hemoglobin 12.6 g/dL (11.7-16.6); Lymphocytes # 1.4 10^3/uL (0.8-4.8); Lymphocytes % 13.2 %; Mean Corpuscular HGB Conc 32.8 g/dL (30.0-36.0); Mean Corpuscular Hemoglobin 30.8 pg (28.0-34.0); Mean Corpuscular Volume 93.9 fl (80-94); Mean Platelet Volume 9.2 fL (7.4-10.4); Monocytes # 0.9 10^3/uL (0.2-0.9); Monocytes % 8.9 %; Neutrophils # 7.79 10^3/uL (1.8-7.7); Neutrophils % 75.4 %; Nucleated Red Blood Cells % 0 %; Platelet Count 211 10^3/cmm (130-400); Red Blood Count 4.09 10^6/uL (4.1-5.3); Red Cell Distribution Width 11.9 % (12.1-15.1); White Blood Count 10.3 10^3/uL (4.0-10.0)
[2021-11-13 12:36] LABS: Alanine Aminotransferase 28 U/L (0-41); Albumin Level 3.6 g/dL (3.5-5.2); Alkaline Phosphatase 79 U/L (40-130); Aspartate Amino Transferase 17 U/L (0-40); Blood Urea Nitrogen 14 mg/dL (8-23); Calcium 9.3 mg/dL (8.5-10.5); Carbon Dioxide 22 mmol/L (22-29); Chloride 97 mmol/L (98-107); Globulin 4.1 g/dL (1.3-4.6); Glomerular Filtration Rate 47.4 mL/min (90-130); Glucose 111 mg/dL (65-115); Lipase 35 U/L (13-60); Osmolality Calculated 279 mOsm/kg (285-295); Sodium 134 mmol/L (136-145); Total Bilirubin 0.7 mg/dL (0.15-1.2); Total Protein 7.7 g/dL (6.6-8.7)
--- NOTE | 2021-11-13 14:25 | W.ED.ABDPA2 ---
HPI - Abdominal Pain General: Chief Complaint: Abdominal Pain Stated Complaint: abd pain Time Seen by Provider: 11/13/21 14:21 Source: patient Mode of arrival: ambulatory Limitations: no limitations History of Present Illness: 61-year-old male presents emergency room complaining of intermittent abdominal discomfort. He was seen for similar symptoms on 11/01 that time he was found to have aortic stenosis he has good collaterals he was transferred to [place] they did further evaluation and he was discharged home. He still has some intermittent claudication he describes with walking he gets calf pain that is resolved by rest. He has had a little bit of a low-grade fever and cough. No diarrhea and no vomiting. He denies any dysuria urgency or frequency. MD elicited complaint: abdominal pain Onset (ago): minute(s) Pain Consistency: intermittent Location: LLQ Severity: mild Quality: aching Radiation: none Exacerbating factors: nothing Relieving factors: nothing Associated Symptoms: Reports GI cramping; Denies anorexia, belching, bloating, change in bowel habits, change in stool character, chills, coffee ground emesis, constipation, dyspepsia, dysuria, excessive flatus, fever(s), heartburn, hematochezia, hematuria, hematemesis, fecal incontinence, loose stools, melena, nausea, poor appetite and vomiting Review of Systems Const: Denies: fever(s), chills, fatigue or malaise ENMT: Denies: throat pain, ear or mastoid pain, nasal discharge or nasal congestion Card: Denies: chest pain, edema, dyspnea on exertion or orthopnea Resp: Denies: dyspnea, productive cough or non-productive cough GI: Reports: abdominal pain and GI cramping; Denies: nausea, vomiting, hematemesis, coffee ground emesis, heartburn, constipation, bloating, belching, excessive flatus, fecal incontinence, change in bowel habits, change in stool character, hematochezia or melena : Denies: flank pain, difficulty urinating, dysuria, urinary frequency, urinary urgency or hematuria Skin/Breast: Denies: rash or pruritus PFSH ED PFSH: Medical History Bipolar disorder CAD (coronary atherosclerotic disease) Chest pain, atypical COPD (chronic obstructive pulmonary disease) Dyslipidemia 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 HTN (hypertension) Ischemic cardiomyopathy Myocardial infarct, old PAD (peripheral artery disease) Tobacco abuse Surgical History 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) Family History Father Cancer Social History Smoking and tobacco status: current every day smoker Alcohol intake: never Current gender identity: Male Physical Exam Const: GENERAL APPEARANCE: cooperative and comfortable ORIENTATION/CONSCIOUSNESS: Yes awake, Yes oriented to person, Yes oriented to place and Yes oriented to time HENMT: COMMON NORMALS: normocephalic, atraumatic and hearing grossly normal bilaterally HEAD & SCALP: normocephalic and atraumatic Resp: COMMON NORMALS: normal respiratory effort, No retractions, No use of accessory muscles and clear to auscultation bilaterally AUSCULTATION: clear to auscultation bilaterally Cardio: COMMON NORMALS: regular rate, regular rhythm and No murmurs present (Cardio) RATE: regular rate RHYTHM: regular rhythm GI: COMMON NORMALS: Soft to palpation and No hepatosplenomegaly present AUSCULTATION: Yes normoactive bowel sounds PALPATION: Yes Soft to palpation, No Tenderness to palpation present (GI), No Guarding due to palpation present (GI) and Yes No hepatosplenomegaly present Extremity: COMMON NORMALS: normal to inspection, capillary refill normal, no clubbing, cyanosis or edema, no calf tenderness and no pedal edema Neuro: SENSORIUM/ORIENTATION: Yes oriented to person, Yes oriented to place and Yes oriented to time Skin: COMMON NORMALS: no rashes or lesions noted GENERAL SKIN EXAM: no rashes or lesions noted Course Vital Signs: Vital signs: Vital Signs Temperature 98.2 F 11/13/21 10:53 Pulse Rate 89 11/13/21 18:51 Respiratory Rate 14 11/13/21 18:51 Blood Pressure 128/79 11/13/21 18:51 Pulse Oximetry 98 11/13/21 18:51 Oxygen Delivery Me thod 11/13/21 18:51 MDM - Abdominal Pain Medical Decision Making She is oxygen saturations are good discussed with Dr. Zavaleta about the original CT she recommended CT without contrast. The aortic stenosis is chronic and he has collaterals. He has having intermittent claudication of his lower extremities when he rests it gets better. Encouraged him to minimize activities at this time. Working to get him set up to see Dr. Tipton who he has seen in the past. He has recently been evaluated for this in [place] where he was transferred. Suspect some of the pain is referred pain from the pneumonia. His sats are good he prefer to treat as an outpatient. Given his recent evaluation in [place] on think he needs any emergent further evaluation for his blood flow but does need close follow-up we will make referral back to the cardiology clinic to make sure that he has the opportunity to look at options going forward. Medical Records I reviewed the patient's medical records. Lab Data I reviewed the patient's lab results. : 11/13/21 12:14 11/13/21 12:14 Labs/Radiology: Radiology Impressions Abdomen/Pelvis CT 11/13/21 15:29 IMPRESSION: 1. Interval development of alveolar airspace disease and reticulonodular interstitial thickening in the right middle lobe and right lower lobe. Findings are suspicious for pneumonia, including atypical organisms. Recommend followup chest imaging to insure resolution of these findings. 2. Stable mild fatty infiltration of the liver. 3. Stable diffuse, mild wall thickening of the bladder. In the correct clinical setting, this may suggest cystitis. Recommend correlation with laboratory findings. Alternatively, this may be secondary to chronic outlet obstruction. 4. Stable calcifications in the vas deferens. Findings raise suspicion for diabetes mellitus. Recommend clinical correlation. 5. Incidental/nonacute findings are listed in the report. ADDENDUM: 11/13/21 4899 The ordering physician is unavailable. Urgent results were discussed with Brayden Russ RN, on 11/13/2021 at 5:26 PM CDT. A read back of the results was given. He will relay the results to the physician. Chest X-Ray 11/13/21 17:31 IMPRESSION: Right hilar to lower lobe atelectasis versus infiltrate. Laboratory Results WBC 10.3 10^3/uL (4.0-10.0) H 11/13/21 12:14 RBC 4.09 10^6/uL (4.1-5.3) L 11/13/21 12:14 Hgb 12.6 g/dL (11.7-16.6) 11/13/21 12:14 Hct 38.4 % (42.0-52.0) L 11/13/21 12:14 MCV 93.9 fl (80-94) 11/13/21 12:14 MCH 30.8 pg (28.0-34.0) 11/13/21 12:14 MCHC 32.8 g/dL (30.0-36.0) 11/13/21 12:14 RDW 11.9 % (12.1-15.1) L 11/13/21 12:14 Plt Count 211 10^3/cmm (130-400) 11/13/21 12:14 MPV 9.2 fL (7.4-10.4) 11/13/21 12:14 Neut % (Auto) 75.4 % 11/13/21 12:14 Lymph % (Auto) 13.2 % 11/13/21 12:14 [place] % (Auto) 8.9 % 11/13/21 12:14 Eos % (Auto) 1.7 % 11/13/21 12:14 Baso % (Auto) 0.4 % 11/13/21 12:14 Neut # (Auto) 7.79 10^3/uL (1.8-7.7) H 11/13/21 12:14 Lymph # (Auto) 1.4 10^3/uL (0.8-4.8) 11/13/21 12:14 [place] # (Auto) 0.9 10^3/uL (0.2-0.9) 11/13/21 12:14 Eos # (Auto) 0.2 10^3/uL (0.0-0.8) 11/13/21 12:14 Baso # (Auto) 0.0 10^3/uL (0.0-0.1) 11/13/21 12:14 Nucleated RBC % (auto) 0 % 11/13/21 12:14 Nucleated RBCs # 0.0 /100WBC 11/13/21 12:14 Sodium 134 mmol/L (136-145) L 11/13/21 12:14 Potassium 4.0 mmol/L (3.5-5.1) 11/13/21 12:14 Chloride 97 mmol/L (98-107) L 11/13/21 12:14 Carbon Dioxide 22 mmol/L (22-29) 11/13/21 12:14 Anion Gap 19.0 (5-19) 11/13/21 12:14 BUN 14 mg/dL (8-23) 11/13/21 12:14 Creatinine 1.5 mg/dL (0.7-1.2) H 11/13/21 12:14 GFR Calculation 47.4 mL/min (90-130) L 11/13/21 12:14 Glucose 111 mg/dL (65-115) 11/13/21 12:14 Calculated Osmolality 279 mOsm/kg (285-295) L 11/13/21 12:14 Calcium 9.3 mg/dL (8.5-10.5) 11/13/21 12:14 Total Bilirubin 0.7 mg/dL (0.15-1.2) 11/13/21 12:14 AST 17 U/L (0-40) 11/13/21 12:14 ALT 28 U/L (0-41) 11/13/21 12:14 Alkaline Phosphatase 79 U/L (40-130) 11/13/21 12:14 Total Protein 7.7 g/dL (6.6-8.7) 11/13/21 12:14 Albumin 3.6 g/dL (3.5-5.2) 11/13/21 12:14 Globulin 4.1 g/dL (1.3-4.6) 11/13/21 12:14 Lipase 35 U/L (13-60) 11/13/21 12:14 Urine Color [place] (Yellow) 11/13/21 14:25 Urine Appearance Clear (CLEAR) 11/13/21 14:25 Urine pH 5 (5-7) 11/13/21 14:25 Ur Specific [place] 1.025 (1.005-1.030) 11/13/21 14:25 Urine Protein Trace (Negative) 11/13/21 14:25 Urine Glucose (UA) Trace (Normal) H 11/13/21 14:25 Urine Ketones Negative (Negative) 11/13/21 14:25 Urine Blood Neg (Negative) 11/13/21 14:25 Urine Nitrate Negative (Negative) 11/13/21 14:25 Urine Bilirubin 1+ (Negative) H 11/13/21 14:25 Urine Urobilinogen 4 mg/dL (Negative) H 11/13/21 14:25 Ur Leukocyte Esterase Trace (Negative) H 11/13/21 14:25 Urine RBC 0-4 /hpf (0-2) H 11/13/21 14:25 Urine WBC 5-10 /hpf (0-5) H 11/13/21 14:25 Ur Squamous Epith Cells Rare /hpf (0-5) 11/13/21 14:25 Amorphous Sediment Not Reportable 11/13/21 14:25 Urine Bacteria None /hpf (NONE) 11/13/21 14:25 Hyaline Casts 5-10 /lpf H 11/13/21 14:25 Urine Mucus 2+ /hpf 11/13/21 14:25 Discharge Plan Discharge Patient Disposition: Home Clinical Impression: Pneumonia, Abdominal aortic stenosis, PAD (peripheral artery disease) Condition: Stable Prescriptions: New levofloxacin 750 mg tablet 750 mg PO DAILY 10 Days Qty: 10 0RF No Action aspirin [Adult Low Dose Aspirin] 81 mg tablet,delayed release (DR/EC) 81 mg PO QAM lisinopril 20 mg tablet 20 mg PO QAM Focus Factor 1 cap PO DAILY simvastatin 40 mg tablet 40 mg PO BEDTIME bupropion HCl 150 mg tablet sustained-release 12 hr 150 mg PO BID pantoprazole 40 mg tablet,delayed release (DR/EC) 40 mg PO BID Benadryl 25 mg Capsule 25 mg PO Q4H PRN (Reason: Allergy Symptoms) Xarelto 20 mg tablet 20 mg PO BEDTIME Mucinex 600 mg Tablet Extended Release 12hr 600 mg PO Q4H Ivermectin Paste 1.87% See Rx Instructions .ROUTE .COMPLEX Rx Instructions: APPLIED TO BACK OF THROAT TWO TO THREE TIMES A DAY clopidogrel 75 mg tablet 75 mg PO QAM spironolactone 25 mg tablet 25 mg PO QAM carvedilol 3.125 mg tablet 3.125 mg PO BID Discharge Orders: Discharge ED (Routine); Ordered 11/13/21 Ordered By: Michael Mcrae Referrals: Angelita Goss FNP [Primary Care Provider] - Discharge Diet: Usual diet Activity Restrictions/Additional Instructions: Follow-up with your primary care doctor tomorrow. We will make arrangements for you to follow-up at the cardiology clinic. Coding Level of Care Code ED Acquisition Analyst for Katarzyna Ruth
[2021-11-13] MEDS: morphine 4 mg/mL SDV 1 mL IVP (14:42)
[2021-11-13] MEDS: sodium chloride 0.9% 1,000 ML 999 ML IV (14:42)
[2021-11-13] MEDS: ondansetron 2 mg/ML SDV 2 mL 4 MG IVP (14:42)
--- NOTE | 2021-11-13 14:42 | PC.PHAR ---
PT STS HE THREW AWAY HIS NITRO AND PAXLOVID AND WILL NOT TAKE THEM
[2021-11-13 15:06] LABS: Add Urine Microscopic? YES; Bilirubin Urine 1+ (Negative); Blood Urine Neg (Negative); Glucose Urine UA Trace (Normal); Ketones Urine Negative (Negative); Leukocyte Esterase Urine Trace (Negative); Mucus Urine 2+ /hpf; Nitrate Urine Negative (Negative); Protein Urine Trace (Negative); RBC Urine 0-4 /hpf (0-2); Specific Gravity, Urine 1.025 (1.005-1.030); Squamous Epithelial Cell Urine RARE /hpf (0-5); Urine Appearance Clear (CLEAR); Urine Color Amber (Yellow); Urobilinogen Urine 4 mg/dL (Negative); pH Urine 5 (5-7)
[2021-11-13 15:07] LABS: Add Urine Culture? No
--- NOTE | 2021-11-13 15:29 | CTR_ITS ---
PROCEDURE INFORMATION: Exam: CT Abdomen And Pelvis Without Contrast Exam date and time: 11/13/2021 4:53 PM Age: 61 years old Clinical indication: Abdominal pain; Localized; Left; Additional info: Abdominal pain, give po contrast 10-15 min prior to scan TECHNIQUE: Imaging protocol: Computed tomography of the abdomen and pelvis without contrast. The patient was administered oral contrast. Radiation optimization: All CT scans at this facility use at least one of these dose optimization techniques: automated exposure control; mA and/or kV adjustment per patient size (includes targeted exams where dose is matched to clinical indication); or iterative reconstruction. COMPARISON: CT abdomen pelvis w con* [id number] 11/01/2021 2:28 PM RADIATION DOSE METRICS: Total DLP (mGy-cm): 531.94 FINDINGS: Limitations: Evaluation of solid organs and vasculature is limited without intravenous contrast. Lungs: Interval development of alveolar airspace disease and reticulonodular interstitial thickening in the right middle lobe and right lower lobe. Findings are suspicious for pneumonia, including atypical organisms. Calcified granuloma in the left lower lobe. Pleural spaces: No pleural effusion. Heart: Moderate atherosclerotic calcification in the visualized coronary arteries. Visualized heart is normal in size. Liver: Diffuse, mildly decreased attenuation in the liver. Findings are stable and consistent with mild fatty infiltration. Gallbladder and bile ducts: The gallbladder is unremarkable. No biliary ductal dilatation. Pancreas: The pancreas is unremarkable. No pancreatic ductal dilatation. Spleen: Multiple calcified granulomas in the spleen are stable. Adrenal glands: The right and left adrenal glands are unremarkable. Kidneys and ureters: The right and left kidneys are unremarkable. The right and left ureters are unremarkable. Stomach and bowel: Calcification in the right lower quadrant adjacent to the sigmoid colon is stable, this may represent long-term sequela of epiploic appendagitis. No acute abnormality in the stomach. .No acute abnormality in the small bowel. No acute abnormality in the colon. Appendix: The appendix is visualized and is unremarkable. No findings to suggest acute appendicitis. Intraperitoneal space: No free intraperitoneal air. No ascites. No loculated fluid collections to suggest an abscess. Vasculature: Moderate atherosclerotic changes in the visualized arteries. Kissing stents in the right and left common iliac arteries are stable in position. No evidence for aortic aneurysm. Lymph nodes: No lymphadenopathy. Urinary bladder: Stable diffuse, mild wall thickening of the bladder. Reproductive: Stable nonspecific parenchymal calcifications in the prostate gland. Stable calcifications in the vas deferens. Bones/joints: Degenerative changes in the spine and hips. Moderate spinal canal stenosis at L2-L3 through L5-S1. Multilevel foraminal stenosis of varying severity in the visualized spine. Soft tissues: No acute abnormality in the extra-abdominal soft tissues. CT/CT abdomen pelvis wo con [id number] IMPRESSION: 1. Interval development of alveolar airspace disease and reticulonodular interstitial thickening in the right middle lobe and right lower lobe. Findings are suspicious for pneumonia, including atypical organisms. Recommend followup chest imaging to insure resolution of these findings. 2. Stable mild fatty infiltration of the liver. 3. Stable diffuse, mild wall thickening of the bladder. In the correct clinical setting, this may suggest cystitis. Recommend correlation with laboratory findings. Alternatively, this may be secondary to chronic outlet obstruction. 4. Stable calcifications in the vas deferens. Findings raise suspicion for diabetes mellitus. Recommend clinical correlation. 5. Incidental/nonacute findings are listed in the report.
--- NOTE | 2021-11-13 17:31 | XRR_ITS ---
PROCEDURE INFORMATION: Exam: XR Chest Exam date and time: 11/13/2021 5:39 PM Age: 61 years old Clinical indication: Pain; Chest pressure; Additional info: Dyspnea/cough TECHNIQUE: Imaging protocol: Radiologic exam of the chest. Views: 1 view. COMPARISON: CR XR chest 1V [id number] 03/10/2017 11:08 PM FINDINGS: Lungs: Right hilar to lower lobe atelectasis versus infiltrate. Pleural spaces: Unremarkable. No pleural effusion. No pneumothorax. Heart/Mediastinum: Unremarkable. No cardiomegaly. Bones/joints: Unremarkable. XR/XR chest 1V portable [id number] IMPRESSION: Right hilar to lower lobe atelectasis versus infiltrate.
--- NOTE | 2021-11-14 10:15 | DCPLANNER ---
Addendum entered by Tisha Lindsey 02/11/22 16:19: Patient had a follow up appointment scheduled with heart care - patient did attend appointment. Addendum entered by Tisha Lindsey 11/14/21 13:54: Patient has a follow up appointment scheduled for Saturday, December 25, 2021 at 12:[address] Tipton. Clinic will call patient with appointment information. Original Note: global transportation manager had message to schedule a follow up appointment for patient with cardiology. global transportation manager sent patients information to the front office staff at [facility]. Patients information will be printed and reviewed. Clinic will call patient with appointment information.
== END 2021-11-13 18:53 | disposition home or self-care (01) ==
PROVIDERS: Emergency Medicine; Emergency Provider Family Medicine; PCP Nurse Practitioner Family
DX: J18.9 Pneumonia, unspecified organism (principal); I35.0 Nonrheumatic aortic (valve) stenosis; I73.9 Peripheral vascular disease, unspecified; Z79.02 Long term (current) use of antithrombotics/antiplatelets; Z79.82 Long term (current) use of aspirin; I25.10 Atherosclerotic heart disease of native coronary artery without angina pectoris; J44.9 Chronic obstructive pulmonary disease, unspecified; E78.5 Hyperlipidemia, unspecified; I10 Essential (primary) hypertension; I25.2 Old myocardial infarction; F17.210 Nicotine dependence, cigarettes, uncomplicated
CPT/HCPCS: 36415; 71045; 74176; 80053; 81001; 83690; 85025; 93005; 96361; 96374; 96375; 99285; J2270; J2405; J7030

== ENCOUNTER → 2021-12-31 12:35 | Outpatient (BNVA) | payer MEDICAID, SELFPAY | PROVIDERS: PCP Nurse Practitioner Family; Visit Provider Internal Medicine Cardiovascular Disease | DX: I25.10 Atherosclerotic heart disease of native coronary artery without angina pectoris (principal); J44.9 Chronic obstructive pulmonary disease, unspecified; I73.9 Peripheral vascular disease, unspecified; E78.5 Hyperlipidemia, unspecified; I10 Essential (primary) hypertension; F31.9 Bipolar disorder, unspecified; N52.1 Erectile dysfunction due to diseases classified elsewhere; I25.2 Old myocardial infarction; I25.5 Ischemic cardiomyopathy; Z98.62 Peripheral vascular angioplasty status; R07.89 Other chest pain; I74.09 Other arterial embolism and thrombosis of abdominal aorta; F17.200 Nicotine dependence, unspecified, uncomplicated | CPT/HCPCS: 99213; 99214 ==

== ENCOUNTER 2023-02-15 04:24 | Emergency (ER) | payer MEDICAID, SELFPAY ==
[2023-02-15 04:26] VITALS: BP 174/84; PULSE 71; RESP 22; TEMP 36.1; O2SAT 98
--- NOTE | 2023-02-15 04:32 | ECG_ITS ---
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 Measurements Intervals [place] Rate: 73 P: 107 [place]: 140 QRS: 89 QRSD: 92 T: 185 QT: 382 QTc: 424 Interpretive Statements SINUS RHYTHM WITH OCCASIONAL VENTRICULAR PREMATURE COMPLEXES POSSIBLE LEFT ATRIAL ENLARGEMENT [-0.1mV P-WAVE IN V1/V2] Poor R wave progression Nonspecific T wave changes in the inferior leads Compared to ECG 11/13/2021 10:59:48 Myocardial infarct finding now present Electronically Signed On 02-15-2023 18:37:45 DEVELOPMENT LEAD by Bebeto Magdaleno M.D. [id number]
--- NOTE | 2023-02-15 04:35 | XRR_ITS ---
PROCEDURE INFORMATION: Exam: XR Chest Exam date and time: 02/15/2023 4:41 AM Age: 62 years old Clinical indication: Chest pressure; Prior surgery; Surgery date: 6+ months; Surgery type: Ptca; Patient HX: C/O chest pain. History of copd. ; Additional info: Cxp TECHNIQUE: Imaging protocol: Radiologic exam of the chest. Views: 1 view. COMPARISON: CR XR chest 1V portable [id number] 11/13/2021 5:39 PM FINDINGS: Lungs: Mild interstitial prominence. Pleural spaces: Unremarkable. No pleural effusion. No pneumothorax. Heart/Mediastinum: Unremarkable. No cardiomegaly. Bones/joints: Unremarkable. XR/XR chest 1V portable [id number] IMPRESSION: No acute cardiopulmonary disease.
[2023-02-15] MEDS: aspirin 81 mg Chew Tablet 324 MG PO (04:40)
[2023-02-15 04:44] VITALS: BP 174/84; PULSE 77; RESP 19; O2SAT 98
[2023-02-15 05:14] LABS: Basophils # 0.1 10^3/uL (0.0-0.1); Basophils % 0.7 %; Eosinophils # 0.4 10^3/uL (0.0-0.8); Eosinophils % 4.1 %; Hematocrit 43.9 % (37-53); Lymphocytes # 2.7 10^3/uL (0.8-4.8); Lymphocytes % 26.6 %; Mean Corpuscular HGB Conc 33.9 g/dL (30-55); Mean Corpuscular Hemoglobin 30.4 pg (27-33); Mean Corpuscular Volume 89.6 fl (82-101); Mean Platelet Volume 10.4 fL (7.4-10.4); Monocytes # 0.5 10^3/uL (0.2-0.9); Monocytes % 5.4 %; Neutrophils # 6.29 10^3/uL (1.8-7.7); Nucleated Red Blood Cells % 0 %; Platelet Count 178 10^3/cmm (157-399); Red Cell Distribution Width 12.7 % (12.1-15.1); White Blood Count 9.98 10^3/uL (3.29-11.43)
[2023-02-15 05:18] LABS: INR 0.92 (0.8-1.2); Partial Thromboplastin Time 28.1 SECONDS (23.9-36.7)
[2023-02-15 05:44] LABS: Troponin(5th) Baseline 15 ng/L (0-15)
[2023-02-15 05:53] VITALS: BP 142/86; PULSE 96; RESP 26; O2SAT 95
[2023-02-15 06:00] VITALS: BP 168/73; PULSE 68; O2SAT 97
--- NOTE | 2023-02-15 06:04 | ED_ITS ---
Documented by User: Parker Ash MD 02/15/23 06:18 HPI - Chest Pain 2 General: Chief Complaint: Chest Pain Stated Complaint: CP, abd pain Time Seen by Provider: 02/15/23 04:35 History of Present Illness: 62-year-old male presents emergency depa rtment via EMS personnel. He states that he had a cardiac stent placed approximately 2 years ago and that for the previous 1 month he is not taking any of his medications as he was unable to get to the pharmacy. He states this morning he started having some right lower chest wall pain. He denies shortness of breath dizziness or lightheaded feeling. He states the pain that he is having is a 4 out of 10 and intermittent. He states nothing makes it better nothing makes it worse. He denies nausea or vomiting. He denies known injury or trauma. 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 Vital signs reviewed as documented. HENMT: Normocephalic, atraumatic. Extermal ears with normal appearance without drainage. Nose without drainage, normal appearance. Mucus membranes moist. Neck is supple, No jugular venous distension, trachea is midline, no appreciable carotid bruits. No lymphadenopathy. No meningeal signs. Flexion, extension and lateral rotation is without pain. Eyes: Pupils are equal, round, reactive to light and accommodation. No scleral icterus. Extra-ocular movement are intact. Thorax is symmetrical and with equal rise and fall with respirations. Resp: Lungs are clear to auscultation. No wheezes, rales, crackles or ronchi at present. Cardio: Regular rate and rhythm. Positive S1, S2. No appreciable murmurs, rubs or gallops. GI: Abdominal exam reveals normal bowel sounds to all quadrants. No organomegaly. No obvious palpable masses noted. No hepatomegally appreciated. Soft, nontender to palpation. Extremity: Extremities are non-edematous and both femoral and pedal pulses are 2+ and equal bilaterally. Moves all extremities well, sensation in all extremities. Neuro: Alert and oriented x4, person, place, time and situation. Cranial nerves II through XII are grossly intact, there is no focal neurological deficits that I can appreciate at present. Motor strength in the upper and lower extremities are equal and bilateral 5/5. Psych: Cooperative, calm, normal thought process, appropriate judgment. Skin: No lesions, rashes. No gross abnormalities noted. Back: Symmetrical, no obvious deformity, No CVA tenderness Course 2 Vital Signs: Vital signs: Vital Signs Temperature 97 F L 02/15/23 04:26 Pulse Rate 68 02/15/23 06:00 Respiratory Rate 26 H 02/15/23 05:53 Blood Pressure 168/73 02/15/23 06:00 Pulse Oximetry 97 02/15/23 06:00 Oxygen Delivery Me thod Room Air 02/15/23 06:00 MDM - Chest Pain Medical Decision Making Checkout to Dr. Barrso. Lab Data 02/15/23 04:10 02/15/23 05:51 Radiology Impressions Chest X-Ray 02/15/23 04:35 IMPRESSION: No acute cardiopulmonary disease. Laboratory Results WBC 9.98 10^3/uL (3.29-11.43) 02/15/23 04:10 RBC 4.90 10^6/uL (3.85-5.65) 02/15/23 04:10 Hgb 14.90 g/dL (11.27-16.99) 02/15/23 04:10 Hct 43.9 % (37-53) 02/15/23 04:10 MCV 89.6 fl (82-101) 02/15/23 04:10 MCH 30.4 pg (27-33) 02/15/23 04:10 MCHC 33.9 g/dL (30-55) 02/15/23 04:10 RDW 12.7 % (12.1-15.1) 02/15/23 04:10 Plt Count 178 10^3/cmm (157-399) 02/15/23 04:10 MPV 10.4 fL (7.4-10.4) 02/15/23 04:10 Neut % (Auto) 63.0 % 02/15/23 04:10 Lymph % (Auto) 26.6 % 02/15/23 04:10 Harlan % (Auto) 5.4 % 02/15/23 04:10 Eos % (Auto) 4.1 % 02/15/23 04:10 Baso % (Auto) 0.7 % 02/15/23 04:10 Neut # (Auto) 6.29 10^3/uL (1.8-7.7) 02/15/23 04:10 Lymph # (Auto) 2.7 10^3/uL (0.8-4.8) 02/15/23 04:10 Harlan # (Auto) 0.5 10^3/uL (0.2-0.9) 02/15/23 04:10 Eos # (Auto) 0.4 10^3/uL (0.0-0.8) 02/15/23 04:10 Baso # (Auto) 0.1 10^3/uL (0.0-0.1) 02/15/23 04:10 Nucleated RBC % (auto) 0 % 02/15/23 04:10 Nucleated RBCs # 0.0 /100WBC 02/15/23 04:10 PT 12.60 SECONDS (12.1-14.9) 02/15/23 04:10 INR 0.92 (0.8-1.2) 02/15/23 04:10 APTT 28.1 SECONDS (23.9-36.7) 02/15/23 04:10 Sodium 135 mmol/L (136-145) L 02/15/23 05:51 Potassium 4.2 mmol/L (3.5-5.1) 02/15/23 05:51 Chloride 103 mmol/L (98-107) 02/15/23 05:51 Carbon Dioxide 24 mmol/L (22-29) 02/15/23 05:51 Anion Gap 12.2 (5-19) 02/15/23 05:51 BUN 15 mg/dL (8-23) 02/15/23 05:51 Creatinine 1.0 mg/dL (0.7-1.2) 02/15/23 05:51 GFR Calculation 75.5 mL/min (90-130) L 02/15/23 05:51 Glucose 117 mg/dL (65-115) H 02/15/23 05:51 Calculated Osmolality 282 mOsm/kg (285-295) L 02/15/23 05:51 Calcium 8.6 mg/dL (8.5-10.5) 02/15/23 05:51 Total Bilirubin 0.3 mg/dL (0.15-1.2) 02/15/23 05:51 AST 22 U/L (0-40) 02/15/23 05:51 ALT 34 U/L (0-41) 02/15/23 05:51 Alkaline Phosphatase 85 U/L (40-130) 02/15/23 05:51 Troponin T Baseline 15 ng/L (0-15) 02/15/23 04:10 Troponin T 120 Minute 14.56 ng/L (0-15) 02/15/23 05:51 NT-Pro-B Natriuret Pep 165 pg/mL (0-125) H 02/15/23 05:51 Total Protein 6.7 g/dL (6.6-8.7) 02/15/23 05:51 Albumin 4.1 g/dL (3.5-5.2) 02/15/23 05:51 Globulin 2.6 g/dL (1.3-4.6) 02/15/23 05:51 All radiology interpretation(s) finalized by discharge Discharge Plan Discharge Patient Disposition: Home Clinical Impression: Chest pain Qualifiers: Chest pain type: unspecified Qualified Code(s): R07.9 - Chest pain, unspecified Condition: Stable Prescriptions: No Action aspirin [Adult Low Dose Aspirin] 81 mg tablet,delayed release (DR/EC) 81 mg PO QAM lisinopril 20 mg tablet 20 mg PO QAM Focus Factor 1 cap PO DAILY simvastatin 40 mg tablet 40 mg PO BEDTIME clopidogrel 75 mg tablet 75 mg PO QAM spironolactone 25 mg tablet 25 mg PO QAM carvedilol 3.125 mg tablet 3.125 mg PO BID Discharge Orders: Discharge ED (Routine); Ordered 02/15/23 Ordered By: Daylin Barros Referrals: Angelita Goss FNP [Primary Care Provider] - 1-3 days Discharge Diet: Advance as tolerated Discharge Activity: Resume usual activity Patient Instructions: Chest Pain (ED) Coding Level of Care Code ED Corporate Manager for Chg Fwd Documented by User: Daylin Barros MD 02/15/23 07:19 HPI - Chest Pain 2 General: Chief Complaint: Chest Pain Stated Complaint: CP, abd pain Time Seen by Provider: 02/15/23 04:35 PFSH ED 2 PFSH: Medical History (Updated 02/15/23 @ 07:08 by Daylin Barros MD) Leriche syndrome COPD (chronic obstructive pulmonary disease) CAD (coronary atherosclerotic disease) PAD (peripheral artery disease) Dyslipidemia HTN (hypertension) Bipolar disorder 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 Myocardial infarct, old Ischemic cardiomyopathy Tobacco abuse Chest pain, atypical Surgical History S/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 Barros. Patient presents for chest pains atypical in nature initial repeat troponins here are normal he is stable for discharge he is to follow-up with PCP and return if worsening he understands agrees to plan. Medical Records I reviewed the patient's medical records. Lab Data I reviewed the patient's lab results. 02/15/23 04:10 02/15/23 05:51 Radiology Impressions Chest X-Ray 02/15/23 04:35 IMPRESSION: No acute cardiopulmonary disease. Laboratory Results WBC 9.98 10^3/uL (3.29-11.43) 02/15/23 04:10 RBC 4.90 10^6/uL (3.85-5.65) 02/15/23 04:10 Hgb 14.90 g/dL (11.27-16.99) 02/15/23 04:10 Hct 43.9 % (37-53) 02/15/23 04:10 MCV 89.6 fl (82-101) 02/15/23 04:10 MCH 30.4 pg (27-33) 02/15/23 04:10 MCHC 33.9 g/dL (30-55) 02/15/23 04:10 RDW 12.7 % (12.1-15.1) 02/15/23 04:10 Plt Count 178 10^3/cmm (157-399) 02/15/23 04:10 MPV 10.4 fL (7.4-10.4) 02/15/23 04:10 Neut % (Auto) 63.0 % 02/15/23 04:10 Lymph % (Auto) 26.6 % 02/15/23 04:10 Harlan % (Auto) 5.4 % 02/15/23 04:10 Eos % (Auto) 4.1 % 02/15/23 04:10 Baso % (Auto) 0.7 % 02/15/23 04:10 Neut # (Auto) 6.29 10^3/uL (1.8-7.7) 02/15/23 04:10 Lymph # (Auto) 2.7 10^3/uL (0.8-4.8) 02/15/23 04:10 Harlan # (Auto) 0.5 10^3/uL (0.2-0.9) 02/15/23 04:10 Eos # (Auto) 0.4 10^3/uL (0.0-0.8) 02/15/23 04:10 Baso # (Auto) 0.1 10^3/uL (0.0-0.1) 02/15/23 04:10 Nucleated RBC % (auto) 0 % 02/15/23 04:10 Nucleated RBCs # 0.0 /100WBC 02/15/23 04:10 PT 12.60 SECONDS (12.1-14.9) 02/15/23 04:10 INR 0.92 (0.8-1.2) 02/15/23 04:10 APTT 28.1 SECONDS (23.9-36.7) 02/15/23 04:10 Sodium 135 mmol/L (136-145) L 02/15/23 05:51 Potassium 4.2 mmol/L (3.5-5.1) 02/15/23 05:51 Chloride 103 mmol/L (98-107) 02/15/23 05:51 Carbon Dioxide 24 mmol/L (22-29) 02/15/23 05:51 Anion Gap 12.2 (5-19) 02/15/23 05:51 BUN 15 mg/dL (8-23) 02/15/23 05:51 Creatinine 1.0 mg/dL (0.7-1.2) 02/15/23 05:51 GFR Calculation 75.5 mL/min (90-130) L 02/15/23 05:51 Glucose 117 mg/dL (65-115) H 02/15/23 05:51 Calculated Osmolality 282 mOsm/kg (285-295) L 02/15/23 05:51 Calcium 8.6 mg/dL (8.5-10.5) 02/15/23 05:51 Total Bilirubin 0.3 mg/dL (0.15-1.2) 02/15/23 05:51 AST 22 U/L (0-40) 02/15/23 05:51 ALT 34 U/L (0-41) 02/15/23 05:51 Alkaline Phosphatase 85 U/L (40-130) 02/15/23 05:51 Troponin T Baseline 15 ng/L (0-15) 02/15/23 04:10 Troponin T 120 Minute 14.56 ng/L (0-15) 02/15/23 05:51 NT-Pro-B Natriuret Pep 165 pg/mL (0-125) H 02/15/23 05:51 Total Protein 6.7 g/dL (6.6-8.7) 02/15/23 05:51 Albumin 4.1 g/dL (3.5-5.2) 02/15/23 05:51 Globulin 2.6 g/dL (1.3-4.6) 02/15/23 05:51 Discharge Plan Discharge Patient Disposition: Home Clinical Impression: Chest pain Qualifiers: Chest pain type: unspecified Qualified Code(s): R07.9 - Chest pain, unspecified Condition: Stable Prescriptions: No Action aspirin [Adult Low Dose Aspirin] 81 mg tablet,delayed release (DR/EC) 81 mg PO QAM lisinopril 20 mg tablet 20 mg PO QAM Focus Factor 1 cap PO DAILY simvastatin 40 mg tablet 40 mg PO BEDTIME clopidogrel 75 mg tablet 75 mg PO QAM spironolactone 25 mg tablet 25 mg PO QAM carvedilol 3.125 mg tablet 3.125 mg PO BID Discharge Orders: Discharge ED (Routine); Ordered 02/15/23 Ordered By: Daylin Barros Referrals: Angelita Goss FNP [Primary Care Provider] - 1-3 days Discharge Diet: Advance as tolerated Discharge Activity: Resume usual activity Patient Instructions: Chest Pain (ED) Coding Level of Care Code ED Corporate Manager for Katarzyna Ruth
--- NOTE | 2023-02-15 06:35 | ECG_ITS ---
[facility] Test Date: 2023-02-15 Pat Name: Sheldon Isaac Department: Room: Gender: Male Director Of Corporate Marketing: : 1960 Requested By: Parker Ash Order Number: [id number] Diane MD: Bebeto Magdaleno M.D. Measurements Intervals [place] Rate: 77 P: 56 CO: 151 QRS: 90 QRSD: 104 T: 47 QT: 372 QTc: 422 Interpretive Statements SINUS RHYTHM WITH OCCASIONAL VENTRICULAR PREMATURE COMPLEXES POSSIBLE LEFT ATRIAL ENLARGEMENT [-0.1mV P-WAVE IN V1/V2] Compared to ECG 02/15/2023 04:32:21 Myocardial infarct finding no longer present Electronically Signed On 02-15-2023 18:50:03 LASER BEAM CUTTER by Bebeto Magdaleno M.D. [id number]
[2023-02-15 06:38] LABS: Alanine Aminotransferase 34 U/L (0-41); Albumin Level 4.1 g/dL (3.5-5.2); Alkaline Phosphatase 85 U/L (40-130); Anion Gap 12.2 (5-19); Aspartate Amino Transferase 22 U/L (0-40); Blood Urea Nitrogen 15 mg/dL (8-23); Calcium 8.6 mg/dL (8.5-10.5); Carbon Dioxide 24 mmol/L (22-29); Chloride 103 mmol/L (98-107); Globulin 2.6 g/dL (1.3-4.6); Glomerular Filtration Rate 75.5 mL/min (90-130); Glucose 117 mg/dL (65-115); NT Pro B Type Natriuretic Pept 165 pg/mL (0-125); Osmolality Calculated 282 mOsm/kg (285-295); Potassium 4.2 mmol/L (3.5-5.1); Sodium 135 mmol/L (136-145); Total Bilirubin 0.3 mg/dL (0.15-1.2); Total Protein 6.7 g/dL (6.6-8.7)
[2023-02-15 07:04] LABS: Troponin 5 2HR 14.56 ng/L (0-15)
[2023-02-15 07:33] LABS: Troponin 5 2HR Delta -0.44 ABS# (0-10)
[2023-02-15 07:44] VITALS: PULSE 97; RESP 15; O2SAT 98
== END 2023-02-15 07:40 | disposition home or self-care (01) ==
PROVIDERS: Internal Medicine; Emergency Provider Emergency Medicine; PCP Nurse Practitioner Family
DX: R07.9 Chest pain, unspecified (principal); Z79.82 Long term (current) use of aspirin; Z79.02 Long term (current) use of antithrombotics/antiplatelets; Z72.0 Tobacco use; J44.9 Chronic obstructive pulmonary disease, unspecified; I25.10 Atherosclerotic heart disease of native coronary artery without angina pectoris; E78.5 Hyperlipidemia, unspecified; I10 Essential (primary) hypertension; I25.2 Old myocardial infarction; I25.5 Ischemic cardiomyopathy
CPT/HCPCS: 71045; 80053; 83880; 84484; 85025; 85610; 85730; 93005; 99285

== ENCOUNTER 2024-01-31 05:34 | Inpatient (IN) | payer MEDICAID, SELFPAY ==
[2024-01-31] VITALS (86 sets, daily range): BP systolic 72–167; BP diastolic 45–90; PULSE 60–145; RESP 16–28; TEMP 35–36.6; O2SAT 89–100; BMI 29.0
[2024-01-31] MEDS: sodium chloride 0.9% 1,000 ML 999 ML IV (05:34)
--- NOTE | 2024-01-31 05:35 | ECG_ITS ---
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 Measurements Intervals [place] Rate: 57 P: 74 MN: 192 QRS: 92 QRSD: 134 T: 86 QT: 431 QTc: 423 Interpretive Statements SINUS BRADYCARDIA WITH SINUS ARRHYTHMIA BORDERLINE RIGHT AXIS DEVIATION [QRS AXIS > 90] INTRAVENTRICULAR CONDUCTION DELAY [130+ ms QRS DURATION] ST ELEVATION, CONSIDER INFERIOR INJURY [MARKED ST ELEVATION W/O NORMALLY INFLECTED T-WAVE IN II/aVF] ACUTE IA Compared to ECG 02/15/2023 06:33:06 Intraventricular conduction delay now present ST (T wave) deviation now present Myocardial infarct finding now present Sinus rhythm no longer present Ventricular premature complex(es) no longer present Electronically Signed On 01-31-2024 10:23:12 SWING DRIVER by Shaka Mensah M.D. [id number]
--- NOTE | 2024-01-31 05:40 | XRR_ITS ---
PROCEDURE INFORMATION: Exam: XR Chest Exam date and time: 01/31/2024 5:55 AM Age: 63 years old Clinical indication: Chest pressure; Patient HX: EMS arrival for chest pain with posiitve st elevations; Additional info: Cp TECHNIQUE: Imaging protocol: Radiologic exam of the chest. Views: 1 view. COMPARISON: CR XR chest 1V portable [id number] 02/15/2023 4:41 AM FINDINGS: Lungs: Unremarkable. No consolidation. Pleural spaces: Unremarkable. No pleural effusion. No pneumothorax. Heart/Mediastinum: Unremarkable. No cardiomegaly. Bones/joints: Unremarkable. XR/XR chest 1V portable [id number] IMPRESSION: No acute findings.
--- NOTE | 2024-01-31 05:47 | ED_ITS ---
HPI - Chest Pain 2 General: Chief Complaint: Chest Pain Stated Complaint: CP Time Seen by Provider: 01/31/24 05:39 History of Present Illness: 63-year-old male patient with a history of coronary disease presents with crushing chest pain that woke him this morning. He had EKG changes in the ambulance on the way here. He was given aspirin and nitroglycerin. He arrives slightly hypotensive. He still in pain. Related Data Home Medications Medication Instructions Recorded Confirmed Superbeets 2 chewable tab PO Q7D 01/31/24 01/31/24 Previous Rx's Medication Instructions Recorded albuterol sulfate 90 mcg/actuation 2 inh inhalation Q6H PRN shortness 11/12/23 breath activated powder inhaler of breath or wheezing #1 ea Allergies Allergy/AdvReac Type Severity Reaction Status Date / Time No Known Allergies Allergy Verified 11/12/23 14:52 PFSH ED 2 PFSH: Medical History Leriche syndrome COPD (chronic obstructive pulmonary disease) CAD (coronary atherosclerotic disease) PAD (peripheral artery disease) Dyslipidemia HTN (hypertension) Bipolar disorder 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 Myocardial infarct, old Ischemic cardiomyopathy Tobacco abuse Chest pain, atypical Surgical History S/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) Family History Father Cancer Social History Smoking and tobacco/nicotine status: unknown if used tobacco/nicotine Alcohol intake: never Substance/Drug Use: current Current gender identity: Male Physical Exam 2 Const: GENERAL APPEARANCE: cooperative, in distress and ill appearing HENMT: COMMON NORMALS: normocephalic, atraumatic and Normal external nose present HEAD & SCALP: normocephalic and atraumatic FACE & SINUS: normal facial exam and face symmetric NOSE: Normal external nose present Eye: COMMON NORMALS: Equal, round and reactive pupils present and EOMs intact bilaterally PUPIL: Yes Equal, round and reactive pupils present Neck/C-Spine: GENERAL: Yes trachea midline Chest: CHEST: Yes Symmetrical chest wall rise Resp: COMMON NORMALS: clear to auscultation bilaterally EFFORT & INSPECTION: Yes tachypneic and Yes respiratory distress AUSCULTATION: clear to auscultation bilaterally Cardio: COMMON NORMALS: regular rhythm RATE: bradycardic RHYTHM: regular rhythm GI: COMMON NORMALS: Normal to inspection, nondistended, normoactive bowel sounds present Extremity: COMMON NORMALS: no pedal edema Neuro: ROSA COMA SCALE: document GCS findings [place] coma scale eye opening: Spontaneous [place] coma scale verbal response: Orientated Rosa coma scale motor response: Obey commands Rosa coma scale total score: 15 S ENSORY EXAM: Yes extremities (intact) Psych: COMMON NORMALS: speech normal SPEECH: Yes normal speech Skin: COMMON NORMALS: no rashes or lesions noted GENERAL SKIN EXAM: no rashes or lesions noted Course 2 Vital Signs: Vital signs: Vital Signs Temperature 96.9 F L 01/31/24 09:00 Pulse Rate 82 01/31/24 14:00 Respiratory Rate 19 H 01/31/24 09:20 Blood Pressure 140/85 01/31/24 09:20 Pulse Oximetry 98 01/31/24 09:20 Oxygen Delivery Me thod Nasal Cannula 01/31/24 09:05 Oxygen Flow Rate 5 01/31/24 09:05 MDM - Chest Pain Medical Decision Making STEMI alert called on arrival after obtaining EKG which shows inferior lead ST elevation that is significant. Patient's blood pressure is back up to 97/61. Heart rate is 55. He still having some pain. Plavix, heparin, morphine and Zofran have been ordered. We are holding off on nitroglycerin at this point, as this is an inferior appearing UT. We have spoken with cardiology on obtaining the patient's EKG, and Seconds Grader team is been activated. Cardiology came to see the patient shortly thereafter, agreed with EKG findings, and agreed to the need for emergent heart cath. The patient became bradycardic and nauseated while awaiting the label maker team. His heart rate was in the 40s. He did not appear to be in complete heart block, as his rhythm was regular, and P waves were present on the monitor. He was given 0.5 milligrams of atropine without much improvement. His blood pressure remained low as well, and Levophed was started at cardiology's request. This improved both his heart rate, and his blood pressure. Calf team arrived, and the patient was taken to the label maker in critical condition, but he was awake and talking, and blood pressure And heart rate were improved at that point. Lab Data 01/31/24 05:55 01/31/24 05:55 Radiology Impressions Chest X-Ray 01/31/24 05:40 IMPRESSION: No acute findings. Laboratory Results WBC 14.48 10^3/uL (3.29-11.43) H 01/31/24 05:55 RBC 5.28 10^6/uL (3.85-5.65) 01/31/24 05:55 Hgb 16.20 g/dL (11.27-16.99) 01/31/24 05:55 Hct 47.6 % (37-53) 01/31/24 05:55 MCV 90.2 fl (82-101) 01/31/24 05:55 MCH 30.7 pg (27-33) 01/31/24 05:55 MCHC 34.0 g/dL (30-55) 01/31/24 05:55 RDW 12.3 % (12.1-15.1) 01/31/24 05:55 Plt Count 205 10^3/cmm (157-399) 01/31/24 05:55 MPV 9.8 fL (7.4-10.4) 01/31/24 05:55 Neut % (Auto) 76.3 % 01/31/24 05:55 Lymph % (Auto) 17.3 % 01/31/24 05:55 [place] % (Auto) 4.5 % 01/31/24 05:55 Eos % (Auto) 0.9 % 01/31/24 05:55 Baso % (Auto) 0.5 % 01/31/24 05:55 Neut # (Auto) 11.06 10^3/uL (1.8-7.7) H 01/31/24 05:55 Lymph # (Auto) 2.5 10^3/uL (0.8-4.8) 01/31/24 05:55 [place] # (Auto) 0.7 10^3/uL (0.2-0.9) 01/31/24 05:55 Eos # (Auto) 0.1 10^3/uL (0.0-0.8) 01/31/24 05:55 Baso # (Auto) 0.1 10^3/uL (0.0-0.1) 01/31/24 05:55 Nucleated RBC % (auto) 0 % 01/31/24 05:55 Nucleated RBCs # 0.0 /100WBC 01/31/24 05:55 PT 13.90 SECONDS (12.1-14.9) 01/31/24 05:55 INR 1.04 (0.8-1.2) 01/31/24 05:55 APTT 28.2 SECONDS (23.9-36.7) 01/31/24 05:55 Sodium 136 mmol/L (136-145) 01/31/24 05:55 Potassium 3.6 mmol/L (3.5-5.1) 01/31/24 05:55 Chloride 98 mmol/L (98-107) 01/31/24 05:55 Carbon Dioxide 24 mmol/L (22-29) 01/31/24 05:55 Anion Gap 17.6 (5-19) 01/31/24 05:55 BUN 16 mg/dL (8-23) 01/31/24 05:55 Creatinine 1.3 mg/dL (0.7-1.2) H 01/31/24 05:55 GFR Calculation 55.6 mL/min (90-130) L 01/31/24 05:55 Glucose 207 mg/dL (65-115) H 01/31/24 05:55 Estimat Average Glucose 123 01/31/24 05:55 Hemoglobin A1c 5.9 % (4.0-6.0) 01/31/24 05:55 Calculated Osmolality 289 mOsm/kg (285-295) 01/31/24 05:55 Calcium 9.5 mg/dL (8.5-10.5) 01/31/24 05:55 Creatine Kinase 86 U/L (39-308) 01/31/24 05:55 Troponin T Baseline 26 ng/L (0-15) H 01/31/24 05:55 NT-Pro-B Natriuret Pep 152 pg/mL (0-125) H 01/31/24 05:55 Triglycerides 124 mg/dL (0-150) 01/31/24 05:55 Cholesterol 170 mg/dL (0-200) 01/31/24 05:55 LDL Cholesterol, Calc 111 mg/dL (50-129) 01/31/24 05:55 HDL Cholesterol 34 mg/dL (60-100) L 01/31/24 05:55 LDL/HDL Ratio 3.26 RATIO (0.00-3.22) H 01/31/24 05:55 Cholesterol/HDL Ratio 5.00 mg/dL (1.0-5.00) 01/31/24 05:55 TSH 0.78 uIU/mL (0.27-4.20) 01/31/24 05:55 Ethyl Alcohol < 10 mg/dL (0-10) 01/31/24 05:55 All radiology interpretation(s) finalized by discharge Critical Care Time 2 Critical Care Time: Critical Care Time: Yes Total Critical Care Time: 35 Attestation: This case had a high probability of a clinically significant, sudden, or life threatening deterioration of this patient's condition which required my full and direct attention, intervention and personal management. Time is independent of any procedures performed. Discharge Plan Discharge Patient Disposition: Admitted As Inpatient Admit Provider: Shaka Mensah Clinical Impression: STEMI (ST elevation myocardial infarction) Condition: Critical Coding Level of Care Code ED [employer] Counter Person for Katarzyna Ruth
[2024-01-31] MEDS: heparin 5,000 unit/mL INJ 1 mL 4000 UNIT IVP (05:58)
[2024-01-31] MEDS: morphine 4 mg/mL SDV 1 mL IVP (05:58)
[2024-01-31] MEDS: clopidogrel 300 mg Tablet 600 MG PO (05:59)
[2024-01-31 06:03] LABS: Basophils # 0.1 10^3/uL (0.0-0.1); Basophils % 0.5 %; Eosinophils # 0.1 10^3/uL (0.0-0.8); Eosinophils % 0.9 %; Hematocrit 47.6 % (37-53); Lymphocytes # 2.5 10^3/uL (0.8-4.8); Lymphocytes % 17.3 %; Mean Corpuscular Hemoglobin 30.7 pg (27-33); Mean Corpuscular Volume 90.2 fl (82-101); Mean Platelet Volume 9.8 fL (7.4-10.4); Monocytes # 0.7 10^3/uL (0.2-0.9); Monocytes % 4.5 %; Neutrophils # 11.06 10^3/uL (1.8-7.7); Neutrophils % 76.3 %; Nucleated Red Blood Cells % 0 %; Platelet Count 205 10^3/cmm (157-399); Red Blood Count 5.28 10^6/uL (3.85-5.65); Red Cell Distribution Width 12.3 % (12.1-15.1); White Blood Count 14.48 10^3/uL (3.29-11.43)
[2024-01-31] MEDS: atropine 0.1 mg/mL Syr 10 mL 0.5 MG IVP (06:11)
[2024-01-31 06:14] LABS: INR 1.04 (0.8-1.2)
[2024-01-31 06:15] LABS: Partial Thromboplastin Time 28.2 SECONDS (23.9-36.7)
--- NOTE | 2024-01-31 06:17 | P.HP_ITS ---
Providers/Chief Complaint 2 Admitting Physician: Shaka Mensah MD Primary Care Provider: ALYSHA Tomas Chief Complaint: CP History of Present Illness Sheldon Isaac is a 63 year old male with past medical history of peripheral artery disease, coronary artery disease, total occlusion of abdominal aorta who presented to hospital after he woke up with the severe substernal crushing chest pain. It is still ongoing. Has been going on for over 1 hour now. EKG is consistent with the acute inferior wall ST elevation NE. Cardiac catheterization laboratory technician has been activated. Review of Systems 2 General: Reports: 10 or more systems reviewed and unremarkable except in HPI and below Card: Reports: chest pain Resp: Reports: dyspnea Medications/Allergies Home Medications Medication Instructions Recorded Confirmed Last Taken Type aspirin 81 mg tablet,delayed 81 mg PO QAM 03/05/19 11/12/23 11/13/21 History release (Adult Low Dose Aspirin) Focus Factor 1 cap PO DAILY 10/28/21 11/12/23 11/13/21 History lisinopril 20 mg tablet 20 mg PO QAM 10/28/21 11/12/23 11/13/21 History simvastatin 40 mg tablet 40 mg PO BEDTIME 10/28/21 11/12/23 11/12/21 History carvedilol 3.125 mg tablet 3.125 mg PO BID 11/01/21 11/12/23 11/13/21 History clopidogrel 75 mg tablet 75 mg PO QAM 11/01/21 11/12/23 11/13/21 History spironolactone 25 mg tablet 25 mg PO QAM 11/01/21 11/12/23 11/13/21 History albuterol sulfate 90 mcg/actuation 2 inh inhalation Q6H PRN shortness 11/12/23 11/12/23 Unknown Rx breath activated powder inhaler of breath or wheezing #1 ea doxycycline hyclate 100 mg capsule 100 mg PO BID #10 caps 11/12/23 11/12/23 Unknown Rx prednisone 20 mg tablet 20 mg PO BID #10 tabs 11/12/23 11/12/23 Unknown Rx Allergies Allergy/AdvReac Type Severity Reaction Status Date / Time No Known Allergies Allergy Verified 11/12/23 14:52 PFSH Acute 2 PFSH: Medical History Leriche syndrome COPD (chronic obstructive pulmonary disease) CAD (coronary atherosclerotic disease) PAD (peripheral artery disease) Dyslipidemia HTN (hypertension) Bipolar disorder 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 Myocardial infarct, old Ischemic cardiomyopathy Tobacco abuse Chest pain, atypical Surgical History 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 In distress secondary to chest pain NECK: No jugular vein distension. [] HEENT: No cyanosis. No icterus. No pallor. [] HEART: Regular S1 and S2. Grade 2/6 systolic murmur LUNGS: Clear to auscultate bilaterally. [] CENTRAL NERVOUS SYSTEM: Grossly nonfocal. [] EXTREMITIES: Lower extremities with 1+ edema bilaterally. Data 01/31/24 05:55 01/31/24 05:55 A&P Assessment and plan (1) STEMI (ST elevation myocardial infarction): (2) CAD (coronary atherosclerotic disease): (3) Leriche syndrome: (4) PAD (peripheral artery disease): (5) Dyslipidemia: (6) Ischemic cardiomyopathy: (7) Tobacco abuse: Plan Patient has presented with acute ST elevation NE inferior wall. He is going for emergent cardiac catheterization with possible intervention. Has been loaded with aspirin and Plavix. Heparin bolus given. We will obtain echocardiogram. We will consult medicine team has COPD and for management of medical issues Attestations 2 Medical Necessity Statement*: Care expected to cross 2 midnights. Patient has presented with acute inferior wall ST elevation NE and going for emergent cardiac catheterization Coding Level of Care Code Acute Code for g Fwd Diagnoses STEMI (ST elevation myocardial infarction) I21.3 CAD (coronary atherosclerotic disease) I25.10 Leriche syndrome I74.09 PAD (peripheral artery disease) I73.9 Dyslipidemia E78.5 Ischemic cardiomyopathy I25.5 Tobacco abuse Z72.0
[2024-01-31 06:20] LABS: Troponin(5th) Baseline 26 ng/L (0-15)
[2024-01-31] MEDS: norepinephrine 4 MG/250 ML BAG 18.75 MG IV (06:21)
[2024-01-31 06:29] LABS: Anion Gap 17.6 (5-19); Blood Urea Nitrogen 16 mg/dL (8-23); Calcium 9.5 mg/dL (8.5-10.5); Carbon Dioxide 24 mmol/L (22-29); Chloride 98 mmol/L (98-107); Creatine Phosphokinase 86 U/L (39-308); Glomerular Filtration Rate 55.6 mL/min (90-130); Glucose 207 mg/dL (65-115); NT Pro B Type Natriuretic Pept 152 pg/mL (0-125); Osmolality Calculated 289 mOsm/kg (285-295); Potassium 3.6 mmol/L (3.5-5.1); Sodium 136 mmol/L (136-145)
[2024-01-31 06:44] LABS: Alcohol Level < 10 mg/dL (0-10); Creatinine Clr Calc Pharmacy 57.5999
--- NOTE | 2024-01-31 07:51 | P.ANESASSM_ITS ---
Pre-Anesthetic Assessment Height/Weight: Height 5 ft 6 in Weight 180 lb Pulse Resp BP Pulse Ox O2 Del Method O2 Flow Rate 61 24 H 106/56 97 Nasal Cannula 2 01/31/24 06:20 01/31/24 06:20 01/31/24 06:20 01/31/24 06:20 01/31/24 06:20 01/31/24 06:20 Preop Diagnosis: STEMI Was Beta Chago taken within 24 hours: Yes Was Clonidine taken within 24 hours: N/A Social Unknown Exam regular rate & rhythm Patient was already sedated Airway Comments: Comments: Oral exam unable to be performed Anesthetic Plan ASA status: 4E Anesthesia: MAC Other: I was called at 08 27 from Internet Marketing Manager due to patient undergoing STEMI and not tolerating cath procedure Patient was given 50 mcg of fentanyl and 2 mg Versed prior to my arrival. Mildly sedated on arrival but is in severe distress/pain Consent unable to be obtained for anesthesia due to emergency of the procedure Per chart review patient has a significant history for CAD with prior stent placement Leriche syndrome noted Hypertension on carvedilol Prior documented history of drug use Patient was on 4 mcg/min Levophed on arrival Plan for MAC anesthetic Medications/Allergies Home Medications Medication Instructions Recorded Confirmed Last Taken Type aspirin 81 mg tablet,delayed 81 mg PO QAM 03/05/19 11/12/23 11/13/21 History release (Adult Low Dose Aspirin) Focus Factor 1 cap PO DAILY 10/28/21 11/12/23 11/13/21 History lisinopril 20 mg tablet 20 mg PO QAM 10/28/21 11/12/23 11/13/21 History simvastatin 40 mg tablet 40 mg PO BEDTIME 10/28/21 11/12/23 11/12/21 History carvedilol 3.125 mg tablet 3.125 mg PO BID 11/01/21 11/12/23 11/13/21 History clopidogrel 75 mg tablet 75 mg PO QAM 11/01/21 11/12/23 11/13/21 History spironolactone 25 mg tablet 25 mg PO QAM 11/01/21 11/12/23 11/13/21 History albuterol sulfate 90 mcg/actuation 2 inh inhalation Q6H PRN shortness 11/12/23 11/12/23 Unknown Rx breath activated powder inhaler of breath or wheezing #1 ea doxycycline hyclate 100 mg capsule 100 mg PO BID #10 caps 11/12/23 11/12/23 Unknown Rx prednisone 20 mg tablet 20 mg PO BID #10 tabs 11/12/23 11/12/23 Unknown Rx Allergies Allergy/AdvReac Type Severity Reaction Status Date / Time No Known Allergies Allergy Verified 11/12/23 14:52 Current Medications Generic Name Dose Route Start Last Admin Trade Name Freq PRN Reason Stop Dose Admin Norepinephrine Bitartrate 4 mg in 250 mls @ 0 mls/hr 01/31/24 06:15 01/31/24 06:21 Levophed IV 5 mcg/min .Q0M RON 18.75 mls/hr Administration Protocol Per Protocol Sodium Chloride 1,000 mls @ 999 mls/hr 01/31/24 06:30 01/31/24 06:24 Sodium Chloride 0.9% IV 01/31/24 08:30 Infused .Q1H1M RON Infusion Morphine Sulfate 4 mg 01/31/24 05:40 01/31/24 05:58 Morphine 4 Mg/Ml Sdv 1 Ml IVP 4 mg Q5M PRN Administration CHEST PAIN PFSH Anesthesia Medical History Leriche syndrome COPD (chronic obstructive pulmonary disease) CAD (coronary atherosclerotic disease) PAD (peripheral artery disease) Dyslipidemia HTN (hypertension) Bipolar disorder 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 Myocardial infarct, old Ischemic cardiomyopathy Tobacco abuse Chest pain, atypical Surgical History 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) Family History Father Cancer Social History Smoking and tobacco/nicotine status: unknown if used tobacco/nicotine Alcohol intake: never Substance/Drug Use: current Current gender identity: Male Data Anesthesia 01/31/24 05:55 01/31/24 05:55 Short CBC 01/31/24 Range/Units 05:55 WBC 14.48 H (3.29-11.43) 10^3/uL Hgb 16.20 (11.27-16.99) g/dL Hct 47.6 (37-53) % MCV 90.2 (82-101) fl Plt Count 205 (157-399) 10^3/cmm Neut % (Auto) 76.3 % Neut # (Auto) 11.06 H (1.8-7.7) 10^3/uL BMP 01/31/24 05:55 Sodium 136 Potassium 3.6 Chloride 98 Carbon Dioxide 24 BUN 16 Creatinine 1.3 H Glucose 207 H Calcium 9.5 Cardiac Enzymes 01/31/24 Range/Units 05:55 Creatine Kinase 86 (39-308) U/L Troponin T Baseline 26 H (0-15) ng/L NT-Pro-B Natriuret Pep 152 H (0-125) pg/mL Coags 01/31/24 05:55 PT 13.90 INR 1.04 APTT 28.2 Cardiac Studies: 2 No Data to Display
--- NOTE | 2024-01-31 07:57 | ANE.PACU2 ---
Inpatient post-anesthesia follow up: Airway intact: Yes Vital signs: Temperature Pulse Rate 61 Respiratory Rate 24 Blood Pressure 106/56 Pulse Oximetry 97 Oxygen Delivery Me thod Nasal Cannula Oxygen Flow Rate 2 Fraction of Inspir ed Oxygen Hydration adequate: Yes Nausea and vomiting: No Pain level: 2 Mental status: Baseline
--- NOTE | 2024-01-31 08:19 | USCV_ITS ---
Sheldon Isaac Age: 63 Gender: M : 1960 Exam Date: 01/31/2024 12:56 Ordering Phys: Shaka Mensah M.D ([email or web address]) Technologist: Miguel Caraballo [place] [facility] [place]: stemi BP: 140 / 85 HR: 80 Rhythm: Sinus Technical Quality: Adequate MEASUREMENTS (Male / Female) Normal Values 2D ECHO LV Diastolic Diameter PLAX 4.0 cm 4.2 - 5.9 / 3.9 - 5.3 cm IVS Diastolic Thickness 1.1 cm 0.6 - 1.0 / 0.6 - 0.9 cm IVS Systolic Thickness 1.3 cm LVPW Diastolic Thickness 1.4 cm 0.6 - 1.0 / 0.6 - 0.9 cm LVPW Systolic Thickness 1.1 cm LVOT Diameter 2.0 cm LV Ejection Fraction 2D Teich 38.5 % LV Ejection Fraction MOD 4C 48.5 % LV Ejection Fraction MOD 2C 52.6 % LV Ejection Fraction 2C AL 55.1 % LA Diameter 3.1 cm RA Systolic Volume 4C AL 27.6 ml RA Systolic Volume 4C MOD 26.0 ml LA Sys Volume AL 30.2 cm cubed LA Sys Volume Index AL 15.0 cm cubed/m squared Aorta at Sinotubular Diameter 2.2 cm IVC Diameter 2.0 cm M-MODE LA Ao Ratio MM 1.4 AV Cusp Separation MM 1.4 cm DOPPLER AV Peak Velocity 135.3 cm/s LVOT Peak Velocity 101.0 cm/s AV Area Cont Eq vti 2.3 cm squared AV Area Cont Eq pk 2.3 cm squared MV Area PHT 4.6 cm squared Mitral E to A Ratio 0.9 TV Peak Velocity 137.0 cm/s TR Peak Velocity 194.0 cm/s TR Peak Gradient 15.1 mmHg TR Mean Velocity 129.0 cm/s TR Mean Gradient 8.1 mmHg TR Velocity Time Integral 62.3 cm PV Peak Velocity 80.0 cm/s RV Ejection Time 0.3 s FINDINGS Left Ventricle Left ventricle is normal in size. Left systolic function is mildly reduced with EF of 40 to 45%. Moderate to severe hypokinesis of inferolateral and inferior wall. Right Ventricle Normal in size and function Right Atrium Normal in size Left Atrium Normal in size Mitral Valve Structurally normal mitral valve. Mild mitral regurgitation. Aortic Valve Structurally normal aortic valve. No significant stenosis or regurgitation. Tricuspid Valve Trace tricuspid regurgitation. Pulmonary artery systolic pressure is normal. Pulmonic Valve Not well visualized Pericardium Normal Aorta Normal in size IVC Appears to be dilated CONCLUSIONS LV systolic function is mildly reduced with EF of 40 to 45%. Above-mentioned regional wall motion abnormalities. Mild mitral regurgitation. Trace tricuspid regurgitation IVC appears to be dilated Shaka Mensah MD (Electronically Signed) Final Date: 01 February 2024 08:42 S
--- NOTE | 2024-01-31 08:44 | ECG_ITS ---
[facility]: [facility]24[facility]31 Pat Name: Sheldon Isaac Department: Room: [facility] Gender: Male Panel Fitter: : 1960 Requested By: Dustin Back Order Number: [id number] Diane MD: Shaka Mensah M.D. Measurements Intervals [place] Rate: 77 P: 69 MN: 158 QRS: 91 QRSD: 96 T: -15 QT: 401 QTc: 456 Interpretive Statements SINUS RHYTHM WITH OCCASIONAL VENTRICULAR PREMATURE COMPLEXES WITH OCCASIONAL SUPRAVENTRICULAR PREMATURE COMPLEXES BORDERLINE RIGHT AXIS DEVIATION [QRS AXIS > 90] NONSPECIFIC T-WAVE ABNORMALITY Compared to ECG 01/31/2024 05:37:49 Ventricular premature complex(es) now present T-wave abnormality now present Sinus bradycardia no longer present Sinus arrhythmia no longer present Intraventricular conduction delay no longer present ST (T wave) deviation no longer present Myocardial infarct finding no longer present Electronically Signed On 02-01-2024 19:07:57 INVESTOR RELATIONS DIRECTOR by Shaka Mensah M.D. [email or web address]
[2024-01-31 09:38] LABS: Troponin 5 2HR 590.7 ng/L (0-15); Troponin 5 2HR Delta 564.7 ABS# (0-10)
[2024-01-31] MEDS: clopidogrel 75 mg Tablet PO (10:04)
[2024-01-31] MEDS: aspirin 81 mg EC Tablet PO (10:04)
--- NOTE | 2024-01-31 11:31 | PM.CONSULT ---
Providers/Reason For Consult Consulting Physician/Specialty*: Cardiology Reason for Consult*: Medical management, COPD Attending Physician: Edis Shore MD Primary Care Provider: ALYSHA Tomas History of Present Illness History of Present Illness Sheldon Isaac is a 63 year old male with a past medical history of COPD, current smoker, hypertension, hyperlipidemia, history of CAD, ischemic cardiomyopathy, history of right and left common iliac arteries, hypertension, peripheral arterial disease, history of total occlusion of abdominal aorta, Leriche syndrome who presents to [facility] for chest pain, diagnosed with STEMI, status post cardiac intervention, hospitalist team was consulted for medical management. Patient currently denies any chest pain, no shortness of breath, he does not use oxygen at home, is a current smoker, Review of Systems Const: Denies: fever(s) Card: Denies: chest pain Resp: Denies: dyspnea : Denies: flank pain Medications/Allergies Home Medications Medication Instructions Recorded Confirmed Last Taken Type albuterol sulfate 90 mcg/actuation 2 inh inhalation Q6H PRN shortness 11/12/23 01/31/24 Unknown Rx breath activated powder inhaler of breath or wheezing #1 ea Allergies Allergy/AdvReac Type Severity Reaction Status Date / Time No Known Allergies Allergy Verified 11/12/23 14:52 Current Medications Generic Name Dose Route Start Last Admin Trade Name Freq PRN Reason Stop Dose Admin Aspirin 81 mg 01/31/24 09:00 01/31/24 10:04 Aspirin 81 Mg Ec Tablet PO 81 mg DAILY RON Administration Clopidogrel Bisulfate 75 mg 01/31/24 09:00 01/31/24 10:04 Clopidogrel 75 Mg Tablet PO 75 mg DAILY RON Administration Norepinephrine Bitartrate 4 mg in 250 mls @ 0 mls/hr 01/31/24 06:15 01/31/24 08:00 Levophed IV 2 mcg/min .Q0M RON 7.5 mls/hr Titration Protocol Per Protocol Morphine Sulfate 4 mg 01/31/24 05:40 01/31/24 05:58 Morphine 4 Mg/Ml Sdv 1 Ml IVP 4 mg Q5M PRN Administration CHEST PAIN PFSH Acute PFSH: Medical History Leriche syndrome COPD (chronic obstructive pulmonary disease) CAD (coronary atherosclerotic disease) PAD (peripheral artery disease) Dyslipidemia HTN (hypertension) Bipolar disorder 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 Myocardial infarct, old Ischemic cardiomyopathy Tobacco abuse Chest pain, atypical Surgical History S/P percutaneous transluminal angioplasty (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) Family History Father Cancer Social History Smoking and tobacco/nicotine status: unknown if used tobacco/nicotine Alcohol intake: never Substance/Drug Use: current Current gender identity: Male Vitals/I&O/Wt Last Vital Signs Temp 96.9 F L 01/31/24 09:00 Pulse 79 01/31/24 09:20 Resp 19 H 01/31/24 09:20 BP 140/85 01/31/24 09:20 Pulse Ox 98 01/31/24 09:20 O2 Del Method Nasal Cannula 01/31/24 09:05 O2 Flow Rate 5 01/31/24 09:05 01/30/24 01/31/24 01/31/24 22:59 06:59 14:59 Intake Total 1100 / 1100 79.688 / 79.688 Balance 1100 / 1100 79.688 / 79.688 Weight last 48 hrs Weight 84.55 kg Weight 81.647 kg Physical Exam Const: COMMON NORMALS: no acute distress and patient oriented x3 Resp: COMMON NORMALS: normal respiratory effort, No retractions, No use of accessory muscles and clear to auscultation bilaterally AUSCULTATION: clear to auscultation bilaterally Cardio: COMMON NORMALS: regular rate, regular rhythm, S1 normal heart sound present and S2 normal heart sound present RATE: regular rate RHYTHM: regular rhythm HEART SOUNDS: S1 normal heart sound present and S2 normal heart sound present GI: COMMON NORMALS: Normal to inspection, nondistended, normoactive bowel sounds present and non-tender Extremity: COMMON NORMALS: no calf tenderness and no pedal edema Neuro: COMMON NORMALS: patient oriented x3 Psych: COMMON NORMALS: mental status grossly normal Data 01/31/24 05:55 01/31/24 05:55 A&P Assessment and plan (1) HTN (hypertension): (2) Ischemic cardiomyopathy: (3) S/P percutaneous transluminal angioplasty (COTTON INSPECTOR): (4) CAD (coronary atherosclerotic disease): (5) Myocardial infarct, old: (6) PAD (peripheral artery disease): (7) Leriche syndrome: (8) Dyslipidemia: (9) COPD (chronic obstructive pulmonary disease): Plan STEMI -Status post cardiac intervention -Continue aspirin, Plavix, statin, beta-crys History of COPD, history of smoking, advised to quit smoking Elevated blood sugars, check A1c, lipid panel, TSH, urine toxicology screen History of Leriche syndrome -Patient has 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 at the level the renal arteries, 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, with near complete occlusion - History of bilateral kissing iliac artery stents -Presented to the ER on 11/01/2021, transferred to [facility], over there as per documentation there was no significant interventions he was supposed to follow-up with vascular surgery at [place], patient tells me that when he followed up with vascular surgery embolisms they told him that there was a 70% chance that he would on the table with surgical intervention, so he declined surgical intervention -Does report intermittent chronic abdominal pain, no issues with lower extremity pain, or ischemia like symptoms Consult Attestations Medical Necessity Statement: Patient requires hospitalization, for STEMI Diagnoses HTN (hypertension) I10 Ischemic cardiomyopathy I25.5 S/P percutaneous transluminal angioplasty (COTTON INSPECTOR) Z98.62 CAD (coronary atherosclerotic disease) I25.10 Myocardial infarct, old I25.2 PAD (peripheral artery disease) I73.9 Leriche syndrome I74.09 Dyslipidemia E78.5 COPD (chronic obstructive pulmonary disease) J44.9
--- NOTE | 2024-01-31 11:35 | ECG_ITS ---
[facility] Test Date: 2024-01-31 Pat Name: Sheldon Isaac Department: Room: [id number] Gender: Male Desilverizer: : 1960 Requested By: Dustin Back Order Number: [id number] Diane MD: Shaka Mensah M.D. Measurements Intervals [place] Rate: 78 P: 71 FL: 174 QRS: 105 QRSD: 82 T: 11 QT: 379 QTc: 434 Interpretive Statements SINUS RHYTHM WITH OCCASIONAL ECTOPIC PREMATURE COMPLEXES RIGHT AXIS DEVIATION [QRS AXIS > 100] NONSPECIFIC ST & T-WAVE ABNORMALITY Compared to ECG 01/31/2024 08:44:33 Ventricular premature complex(es) no longer present T-wave abnormality still present Electronically Signed On 02-01-2024 19:06:57 STATION JAILER by Shaka Mensah M.D. [id number]
[2024-01-31] MEDS: tirofiban 5 MG/100 ML PREMIX 14.8 MG IV (11:46)
[2024-01-31 11:58] LABS: Glucose Point of Care 125 mg/dL (70-110)
--- NOTE | 2024-01-31 11:58 | PC.PHAR ---
Patient states he hasn't been good at getting his medications . He takes SuperBeet supplement and has an inhaler at home.
[2024-01-31 12:04] LABS: Cholesterol 170 mg/dL (0-200); HDL Cholesterol 34 mg/dL (60-100); LDL Cholesterol Calculated 111 mg/dL (50-129); LDL HDL Ratio 3.26 RATIO (0.00-3.22); Triglycerides 124 mg/dL (0-150)
[2024-01-31 12:08] LABS: Troponin 5 6HR 1675 ng/L (0-15); Troponin 5 6HR Delta 1649 ng/L (0-12)
[2024-01-31 12:11] LABS: Estmated Average Glucose 123; Hemoglobin A1C 5.9 % (4.0-6.0)
[2024-01-31 12:19] LABS: Thyroid Stimulating Hormone 0.78 uIU/mL (0.27-4.20)
[2024-01-31 18:20] LABS: Amphetamines Screen Urine Positive (Negative); Barbiturates Screen Urine Negative (Negative); Benzodiazepines Screen Urine Negative (Negative); Cocaine Screen Urine Negative (Negative); Opiate Screen Urine Positive (Negative); PCP Screen Urine Negative (Negative); THC Screen Urine Positive (Negative)
[2024-01-31 18:27] LABS: Glucose Point of Care 140 mg/dL (70-110)
[2024-01-31 21:44] LABS: Glucose Point of Care 131 mg/dL (70-110)
[2024-02-01] VITALS (51 sets, daily range): BP systolic 105–119; BP diastolic 50–87; PULSE 66–96; RESP 18–36; TEMP 36.3–36.7; O2SAT 87–97; BMI 29.5
[2024-02-01 05:08] LABS: Basophils % 0.4 %; Eosinophils # 0.1 10^3/uL (0.0-0.8); Eosinophils % 1.1 %; Hematocrit 38.8 % (37-53); Lymphocytes # 1.6 10^3/uL (0.8-4.8); Lymphocytes % 14.7 %; Mean Corpuscular Hemoglobin 30.4 pg (27-33); Mean Corpuscular Volume 89.4 fl (82-101); Mean Platelet Volume 9.9 fL (7.4-10.4); Monocytes # 0.7 10^3/uL (0.2-0.9); Monocytes % 6.8 %; Neutrophils # 8.15 10^3/uL (1.8-7.7); Neutrophils % 76.5 %; Nucleated Red Blood Cells % 0 %; Platelet Count 104 10^3/cmm (157-399); Red Blood Count 4.34 10^6/uL (3.85-5.65); Red Cell Distribution Width 12.5 % (12.1-15.1); White Blood Count 10.64 10^3/uL (3.29-11.43)
[2024-02-01 05:28] LABS: Anion Gap 15.1 (5-19); Blood Urea Nitrogen 13 mg/dL (8-23); Calcium 8.6 mg/dL (8.5-10.5); Carbon Dioxide 23 mmol/L (22-29); Chloride 106 mmol/L (98-107); Creatinine Clr Calc Pharmacy 75.4351; Glomerular Filtration Rate 75.2 mL/min (90-130); Glucose 129 mg/dL (65-115); Osmolality Calculated 292 mOsm/kg (285-295); Potassium 4.1 mmol/L (3.5-5.1); Sodium 140 mmol/L (136-145)
--- NOTE | 2024-02-01 09:02 | PC.NURSE ---
Update Family Updated patient motherCoco regarding patient condition. Answered all questions at this time.
[2024-02-01] MEDS: clopidogrel 75 mg Tablet PO (10:09)
[2024-02-01] MEDS: aspirin 81 mg EC Tablet PO (10:09)
--- NOTE | 2024-02-01 10:18 | P.DS_ITS ---
Discharge Providers Date of Admission: 01/31/24 07:34 Date of Discharge: February 01, 2024 Attending Provider at Admission: Shaka Mensah M.D Attending Provider at Discharge: Shaka Mensah MD Primary Care Provider: ALYSHA Tomas Diagnoses at Discharge Discharge Diagnosis (1) STEMI (ST elevation myocardial infarction): Status: Acute (2) HTN (hypertension): Status: Acute (3) Ischemic cardiomyopathy: Status: Acute (4) S/P percutaneous transluminal angioplasty (SALVAGER HELPER): Status: Acute (5) CAD (coronary atherosclerotic disease): Status: Acute (6) Myocardial infarct, old: Status: Acute (7) PAD (peripheral artery disease): Status: Acute (8) Leriche syndrome: Status: Acute (9) Dyslipidemia: Status: Acute (10) COPD (chronic obstructive pulmonary disease): Status: Acute Reason for Visit Reason for Visit: Chest Pain Brief History: 63 year old male with past medical history of peripheral artery disease, coronary artery disease, total occlusion of abdominal aorta who presented to hospital after he woke up with the severe substernal crushing chest pain. It is still ongoing. Has been going on for over 1 hour now. EKG is consistent with the acute inferior wall ST elevation [place]. Cardiac laborer construction or leak gang has been activated. Hospital Course Hospital Course Coronary angiogram demonstrated total thrombotic occlusion of old RCA stents. Underwent successful revascularization with balloon angioplasty. LAD has ostial FASHION PHOTOGRAPHER. Patient was observed overnight and stayed stable. Was discharged home in a stable condition on dual antiplatelet therapy. LV systolic function is mildly reduced with EF of 40-45%. Physical Exam Narrative: GENERAL: Patient is alert. In distress secondary to chest pain NECK: No jugular vein distension. [] HEENT: No cyanosis. No icterus. No pallor. [] HEART: Regular S1 and S2. Grade 2/6 systolic murmur LUNGS: Clear to auscultate bilaterally. [] CENTRAL NERVOUS SYSTEM: Grossly nonfocal. [] EXTREMITIES: Lower extremities with 1+ edema bilaterally. Discharge Data Studies Completed and Pending Completed Studies During Hospitalization Category Date Time Status XR chest 1V portable [id number] Stat Exams 01/31/24 05:40 Completed CV. echo complete* [id number] Routine Ultrasound 01/31/24 08:19 Completed Pending at discharge Category Date Time Status RANGE SCIENTIST request for service Stat Exams 01/31/24 06:09 Ordered Basic Metabolic Panel AM LABS Lab 02/02/24 04:00 Ordered Basic Metabolic Panel AM LABS Lab 02/03/24 04:00 Ordered Complete Blood Count w/Auto AM LABS Lab 02/02/24 04:00 Ordered Complete Blood Count w/Auto AM LABS Lab 02/03/24 04:00 Ordered Radiology Impressions Chest X-Ray 01/31/24 05:40 IMPRESSION: No acute findings. Laboratory Results WBC 10.64 10^3/uL (3.29-11.43) 02/01/24 04:57 RBC 4.34 10^6/uL (3.85-5.65) 02/01/24 04:57 Hgb 13.20 g/dL (11.27-16.99) 02/01/24 04:57 Hct 38.8 % (37-53) 02/01/24 04:57 MCV 89.4 fl (82-101) 02/01/24 04:57 MCH 30.4 pg (27-33) 02/01/24 04:57 MCHC 34.0 g/dL (30-55) 02/01/24 04:57 RDW 12.5 % (12.1-15.1) 02/01/24 04:57 Plt Count 104 10^3/cmm (157-399) L D 02/01/24 04:57 MPV 9.9 fL (7.4-10.4) 02/01/24 04:57 Neut % (Auto) 76.5 % 02/01/24 04:57 Lymph % (Auto) 14.7 % 02/01/24 04:57 [place] % (Auto) 6.8 % 02/01/24 04:57 Eos % (Auto) 1.1 % 02/01/24 04:57 Baso % (Auto) 0.4 % 02/01/24 04:57 Neut # (Auto) 8.15 10^3/uL (1.8-7.7) H 02/01/24 04:57 Lymph # (Auto) 1.6 10^3/uL (0.8-4.8) 02/01/24 04:57 [place] # (Auto) 0.7 10^3/uL (0.2-0.9) 02/01/24 04:57 Eos # (Auto) 0.1 10^3/uL (0.0-0.8) 02/01/24 04:57 Baso # (Auto) 0.0 10^3/uL (0.0-0.1) 02/01/24 04:57 Nucleated RBC % (auto) 0 % 02/01/24 04:57 Nucleated RBCs # 0.0 /100WBC 02/01/24 04:57 PT 13.90 SECONDS (12.1-14.9) 01/31/24 05:55 INR 1.04 (0.8-1.2) 01/31/24 05:55 APTT 28.2 SECONDS (23.9-36.7) 01/31/24 05:55 Sodium 140 mmol/L (136-145) 02/01/24 04:57 Potassium 4.1 mmol/L (3.5-5.1) 02/01/24 04:57 Chloride 106 mmol/L (98-107) 02/01/24 04:57 Carbon Dioxide 23 mmol/L (22-29) 02/01/24 04:57 Anion Gap 15.1 (5-19) 02/01/24 04:57 BUN 13 mg/dL (8-23) 02/01/24 04:57 Creatinine 1.0 mg/dL (0.7-1.2) 02/01/24 04:57 GFR Calculation 75.2 mL/min (90-130) L 02/01/24 04:57 Glucose 129 mg/dL (65-115) H 02/01/24 04:57 POC Glucose 131 mg/dL (70-110) H 01/31/24 21:41 Estimat Average Glucose 123 01/31/24 05:55 Hemoglobin A1c 5.9 % (4.0-6.0) 01/31/24 05:55 Calculated Osmolality 292 mOsm/kg (285-295) 02/01/24 04:57 Calcium 8.6 mg/dL (8.5-10.5) 02/01/24 04:57 Creatine Kinase 86 U/L (39-308) 01/31/24 05:55 Troponin T Baseline 26 ng/L (0-15) H 01/31/24 05:55 Troponin T 120 Minute 590.7 ng/L (0-15) H 01/31/24 08:49 Delta Troponin T 564.7 ABS# (0-10) H* 01/31/24 08:49 Troponin T Hi Sens 6Hr 1675 ng/L (0-15) H 01/31/24 11:37 Troponin T Hi Sens 6Hr Delta 1649 ng/L (0-12) H* 01/31/24 11:37 NT-Pro-B Natriuret Pep 152 pg/mL (0-125) H 01/31/24 05:55 Triglycerides 124 mg/dL (0-150) 01/31/24 05:55 Cholesterol 170 mg/dL (0-200) 01/31/24 05:55 LDL Cholesterol, Calc 111 mg/dL (50-129) 01/31/24 05:55 HDL Cholesterol 34 mg/dL (60-100) L 01/31/24 05:55 LDL/HDL Ratio 3.26 RATIO (0.00-3.22) H 01/31/24 05:55 Cholesterol/HDL Ratio 5.00 mg/dL (1.0-5.00) 01/31/24 05:55 TSH 0.78 uIU/mL (0.27-4.20) 01/31/24 05:55 Urine Opiates Screen Positive ng/mL (Negative) H 01/31/24 17:20 Ur Barbiturates Screen Negative ng/mL (Negative) 01/31/24 17:20 Ur Phencyclidine Scrn Negative ng/mL (Negative) 01/31/24 17:20 Ur Amphetamines Screen Positive ng/mL (Negative) H 01/31/24 17:20 U Benzodiazepines Scrn Negative ng/mL (Negative) 01/31/24 17:20 Urine Cocaine Screen Negative ng/mL (Negative) 01/31/24 17:20 U Marijuana (THC) Screen Positive ng/mL (Negative) H 01/31/24 17:20 Ethyl Alcohol < 10 mg/dL (0-10) 01/31/24 05:55 Vitals Last Vital Signs Temp 97.3 F L 02/01/24 10:00 Pulse 81 02/01/24 10:00 Resp 24 H 02/01/24 10:00 BP 116/87 02/01/24 04:00 Pulse Ox 94 02/01/24 10:00 O2 Del Method Room Air 02/01/24 05:45 O2 Flow Rate 5 01/31/24 09:05 Discharge Plan Discharge Patient Disposition: Home Condition: Stable Prescriptions: New clopidogrel 75 mg Tablet 75 mg PO DAILY Qty: 90 3RF aspirin 81 mg Tablet,Delayed Release (Dr/Ec) 81 mg PO DAILY Qty: 90 3RF atorvastatin 40 mg tablet 40 mg PO DAILY Qty: 90 3RF metoprolol tartrate 25 mg tablet 25 mg PO BID Qty: 120 3RF Discharge Orders: Discharge Order (Routine); Ordered 02/01/24 Ordered By: Shaka Mensah Referrals: Angelita Goss FNP [Primary Care Provider] - Sara Quevedo FNP [Nurse Practitioner] - 7-10 days Discharge Diet: Cardiac Discharge Activity: Increase activity as tolerated Patient Instructions: Opioid Safety Discharge Attestations Time Spent in Discharge Care*: greater than 30 min Quality Metrics Clinical Quality Measures [ Acute Myocardial Infaction { Clinical Trial Participant: No; Contraindication to aspirin: None; Aspirin prescribed; Contraindication to statin: None; Statin prescribed; Contraindication to PCI: None; PCI performed;}] Coding Level of Care Code Acute Code for [facility] Fwd Diagnoses STEMI (ST elevation myocardial infarction) I21.3 HTN (hypertension) I10 Ischemic cardiomyopathy I25.5 S/P percutaneous transluminal angioplasty (SALVAGER HELPER) Z98.62 CAD (coronary atherosclerotic disease) I25.10 Myocardial infarct, old I25.2 PAD (peripheral artery disease) I73.9 Leriche syndrome I74.09 Dyslipidemia E78.5 COPD (chronic obstructive pulmonary disease) J44.9
--- NOTE | 2024-02-01 10:18 | PM.PN ---
Subjective Subjective: Patient was seen this morning, plans on possible discharge today, discussed his positive urine toxicology screen for amphetamines and marijuana, discussed him not using drugs due to cardiovascular risk, he is also a smoker had a discussion with him to quit smoking, for his Lehriche syndrome, monitor for warning signs, follow-up with primary care provider as outpatient Vitals/I&O/Wt Last Vital Signs Temp 97.3 F L 02/01/24 10:00 Pulse 81 02/01/24 10:00 Resp 24 H 02/01/24 10:00 BP 116/87 02/01/24 04:00 Pulse Ox 94 02/01/24 10:00 O2 Del Method Room Air 02/01/24 05:45 O2 Flow Rate 5 01/31/24 09:05 01/31/24 02/01/24 02/01/24 22:59 06:59 14:59 Intake Total 240 / 240 Output Total 650 / 650 250 / 900 Balance -650 / -412.812 -250 / -662.812 240 / 240 Weight last 48 hrs Weight 82.962 kg Weight 84.55 kg Weight 81.647 kg Physical Exam Const: COMMON NORMALS: no acute distress and patient oriented x3 Resp: COMMON NORMALS: normal respiratory effort, No retractions, No use of accessory muscles and clear to auscultation bilaterally AUSCULTATION: clear to auscultation bilaterally Cardio: COMMON NORMALS: regular rate, regular rhythm, S1 normal heart sound present and S2 normal heart sound present RATE: regular rate RHYTHM: regular rhythm HEART SOUNDS: S1 normal heart sound present and S2 normal heart sound present GI: COMMON NORMALS: Normal to inspection, nondistended, normoactive bowel sounds present and non-tender Extremity: COMMON NORMALS: no pedal edema Neuro: COMMON NORMALS: patient oriented x3 Psych: COMMON NORMALS: mental status grossly normal Data 02/01/24 04:57 02/01/24 04:57 A&P Assessment and plan (1) HTN (hypertension): (2) Ischemic cardiomyopathy: (3) S/P percutaneous transluminal angioplasty (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): (4) CAD (coronary atherosclerotic disease): (5) Myocardial infarct, old: (6) PAD (peripheral artery disease): (7) Leriche syndrome: (8) Dyslipidemia: (9) COPD (chronic obstructive pulmonary disease): Plan STEMI -Status post cardiac intervention -Continue aspirin, Plavix, statin, beta-crys History of COPD, history of smoking, advised to quit smoking Urine toxicology screen positive for marijuana, amphetamines History of Leriche syndrome -Patient has 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 at the level the renal arteries, 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, with near complete occlusion - History of bilateral kissing iliac artery stents -Presented to the ER on 11/01/2021, transferred to [facility], over there as per documentation there was no significant interventions he was supposed to follow-up with vascular surgery at [place], patient tells me that when he followed up with vascular surgery embolisms they told him that there was a 70% chance that he would on the table with surgical intervention, so he declined surgical intervention -Does report intermittent chronic abdominal pain, no issues with lower extremity pain, or ischemia like symptoms Had episode of nonsustained V. tach during the night, no chest pain complaints, will be discharged on a beta-crys Patient will be discharged today, Attestations Medical Necessity Statement*: Patient will be discharged today Diagnoses HTN (hypertension) I10 Ischemic cardiomyopathy I25.5 S/P percutaneous transluminal angioplasty (PHYSICAL THERAPY NURSE) Z98.62 CAD (coronary atherosclerotic disease) I25.10 Myocardial infarct, old I25.2 PAD (peripheral artery disease) I73.9 Leriche syndrome I74.09 Dyslipidemia E78.5 COPD (chronic obstructive pulmonary disease) J44.9
--- NOTE | 2024-02-01 12:46 | PC.NURSE ---
Discharge Note Patient discharged to home via wheelchair accompanied by sister. Discharge instructions reviewed with patient and sister. All prescriptions sent to patient preferred pharmacy. All patient belongings including phone and poultry farmer returned upon discharge. Upon discharge patient is alert/oriented x4 on room air.
== END 2024-02-01 12:33 | disposition home or self-care (01) | DRG 251 ==
LOC: ER 06:36 → CCL 06:41 → ICU 07:37
PROVIDERS: Admitting Provider Internal Medicine; Emergency Provider Emergency Medicine; PCP Nurse Practitioner Family; Visit Provider Family Medicine
PROC: 02703ZZ Dilation of Coronary Artery, One Artery, Percutaneous Approach (ICD-10-PCS; principal; 2024-01-31 06:15)
DX: T82.855A Stenosis of coronary artery stent, initial encounter (principal); I74.09 Other arterial embolism and thrombosis of abdominal aorta; Y71.8 Miscellaneous cardiovascular devices associated with adverse incidents, not elsewhere classified; I73.9 Peripheral vascular disease, unspecified; I25.10 Atherosclerotic heart disease of native coronary artery without angina pectoris; J44.9 Chronic obstructive pulmonary disease, unspecified; E78.5 Hyperlipidemia, unspecified; I10 Essential (primary) hypertension; F31.9 Bipolar disorder, unspecified; N52.9 Male erectile dysfunction, unspecified; F17.200 Nicotine dependence, unspecified, uncomplicated; I25.5 Ischemic cardiomyopathy; F15.90 Other stimulant use, unspecified, uncomplicated; F12.90 Cannabis use, unspecified, uncomplicated; I25.2 Old myocardial infarction; Z95.820 Peripheral vascular angioplasty status with implants and grafts; Z79.82 Long term (current) use of aspirin; Z79.02 Long term (current) use of antithrombotics/antiplatelets; Z79.51 Long term (current) use of inhaled steroids
CPT/HCPCS: 36415; 36416; 71045; 80048; 80061; 80306; 80307; 82550; 82962; 83036; 83880; 84443; 84484; 85025; 85347; 85610; 85730; 92920; 92978; 93005; 93306; 93458; 96365; 96366; 96374; 96375; 99152; 99291; C1725; C1753; C1769; C1887; C1894; J0461; J1644; J1940; J2250; J2270; J2371; J2704; J3010; J3490; J7030; Q9967

== ENCOUNTER 2024-02-03 11:00 | Observation (INO) | payer MEDICAID, SELFPAY ==
[2024-02-03] VITALS (10 sets, daily range): BP systolic 108–133; BP diastolic 47–71; PULSE 55–82; RESP 16–18; TEMP 36.6–36.9; O2SAT 93–99; BMI 29.0
--- NOTE | 2024-02-03 11:04 | XR_ITS ---
WS: [id number] XR chest 1V portable [id number] REASON FOR EXAM: abd pain FINDINGS: The chest is unchanged compared to 01/31/2024. The heart and the mediastinum are within normal limits. Calcified granulomas disease in both hemithoraces. No acute pulmonary parenchymal or pleural abnormality. Mild degenerative spondylosis in the mid and lower thoracic spine. XR/XR chest 1V portable [id number] IMPRESSION: No acute chest abnormality.
--- NOTE | 2024-02-03 11:06 | ECG_ITS ---
[facility] Test Date: 2024-02-03 Pat Name: Sheldon Isaac Department: Room: Gender: Male Complaint Supervisor: : 1960 Requested By: Daylin Barros Order Number: [id number] Diane MD: Shaka Mensah M.D. Measurements Intervals [place] Rate: 65 P: 65 NM: 153 QRS: 98 QRSD: 88 T: -62 QT: 402 QTc: 420 Interpretive Statements SINUS RHYTHM BORDERLINE RIGHT AXIS DEVIATION [QRS AXIS > 90] MODERATE T-WAVE ABNORMALITY, CONSIDER INFERIOR ISCHEMIA [-0.1+ mV T-WAVE IN II/aVF] Compared to ECG 01/31/2024 13:13:28 Possible ischemia now present T-wave abnormality still present Electronically Signed On 02-03-2024 21:28:18 EDI SPECIALIST by Shaka Mensah M.D. [id number]
--- NOTE | 2024-02-03 11:06 | W.ED.ABDPA2 ---
HPI - Abdominal Pain General: Chief Complaint: Abdominal Pain Stated Complaint: ABD/Back Pain Time Seen by Provider: 02/03/24 11:01 Source: patient and EMS Mode of arrival: EMS Limitations: no limitations History of Present Illness: 63-year-old male who states he has been having abdominal pain along with hip pain last 4 days. He had been admitted here for heart attack last week states he just has not felt well since then and has had increasing abdominal pain. States he has bilateral hip pain to denies any fevers he rates his abdominal pain a 7 out of 10 has had no vomiting he denies any chest pain currently. Associated Symptoms: Denies chills, diarrhea, dysuria, fever(s), nausea and vomiting Related Data Previous Rx's Medication Instructions Recorded aspirin 81 mg tablet,delayed 81 mg PO DAILY #90 tabs 02/01/24 release atorvastatin 40 mg tablet 40 mg PO DAILY #90 tabs 02/01/24 clopidogrel 75 mg tablet 75 mg PO DAILY #90 tabs 02/01/24 metoprolol tartrate 25 mg tablet 25 mg PO BID #120 tabs 02/01/24 Allergies Allergy/AdvReac Type Severity Reaction Status Date / Time No Known Allergies Allergy Verified 11/12/23 14:52 Review of Systems Const: Denies: fever(s), chills, body aches or change in appetite ENMT: Denies: throat pain or dental pain Card: Denies: chest pain Resp: Denies: dyspnea GI: Reports: abdominal pain; Denies: nausea, vomiting or diarrhea : Denies: dysuria Musc: Denies: neck pain or back pain Skin/Breast: Denies: rash Neuro: Denies: headache(s) PFS ED PFSH: Medical History Leriche syndrome COPD (chronic obstructive pulmonary disease) CAD (coronary atherosclerotic disease) PAD (peripheral artery disease) Dyslipidemia HTN (hypertension) Bipolar disorder 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 Myocardial infarct, old Ischemic cardiomyopathy Tobacco abuse Chest pain, atypical Surgical History S/P percutaneous transluminal angioplasty ([employer]INC[employer]) Family History Father Cancer Social History Smoking and tobacco/nicotine status: unknown if used tobacco/nicotine Alcohol intake: never Substance/Drug Use: current Current gender identity: Male Physical Exam Const: COMMON NORMALS: no acute distress, patient oriented x3 and healthy appearing HENMT: COMMON NORMALS: normocephalic and atraumatic HEAD & SCALP: normocephalic and atraumatic Neck/C-Spine: COMMON NORMALS: full ROM and supple Chest: COMMONS NORMALS: normal inspection of the chest Resp: COMMON NORMALS: normal respiratory effort, No retractions, No use of accessory muscles and clear to auscultation bilaterally AUSCULTATION: clear to auscultation bilaterally Cardio: COMMON NORMALS: regular rate, regular rhythm and No murmurs present (Cardio) RATE: regular rate RHYTHM: regular rhythm GI: COMMON NORMALS: Normal to inspection, nondistended, normoactive bowel sounds present, Soft to palpation and no masses PALPATION: Yes Soft to palpation OTHER: diffuse mild tenderness Extremity: COMMON NORMALS: normal to inspection and full ROM Neuro: COMMON NORMALS: patient oriented x3, moves all extremities and no focal motor deficits Psych: COMMON NORMALS: mental status grossly normal, Normal thought process present and cooperative THOUGHT PROCESS: Normal thought process present Skin: COMMON NORMALS: no rashes or lesions noted and no wounds GENERAL SKIN EXAM: no rashes or lesions noted Course Vital Signs: Vital signs: Vital Signs Temperature 98.3 F 02/03/24 11:03 Pulse Rate 63 02/03/24 13:59 Respiratory Rate 18 02/03/24 11:29 Blood Pressure 108/47 02/03/24 13:59 Pulse Oximetry 97 02/03/24 13:59 Oxygen Delivery Me thod Room Air 02/03/24 13:59 MDM - Abdominal Pain Medical Decision Making Patient presents here with abdominal pain is also had some dyspnea CT here shows pulm edema versus infection had no fever no cough no white count mildly elevated BNP will give Prabhakar did have an elevated troponin 2-hour went down he has had a recent cath could be the cause of the elevated troponin is had no chest pain here I spoke to the hospitalist will admit at this time. Medical Records I reviewed the patient's medical records. Lab Data I reviewed the patient's lab results. 02/03/24 11:27 02/03/24 11:27 Labs/Radiology: Radiology Impressions Chest X-Ray 02/03/24 11:04 IMPRESSION: No acute chest abnormality. Chest/Abdomen/Pelvis CT 02/03/24 11:15 IMPRESSION: 1. No evidence of pulmonary embolus. 2. Bilateral groundglass infiltrates in a perihilar and upper lobe distribution can be seen with pulmonary edema and/or viral pneumonia.. 3. 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 Chronic occlusion of the iliac stents unchanged. 4. Diffuse fatty infiltration of the liver. Laboratory Results WBC 8.66 10^3/uL (3.29-11.43) 02/03/24 11:27 RBC 4.58 10^6/uL (3.85-5.65) 02/03/24 11:27 Hgb 13.90 g/dL (11.27-16.99) 02/03/24 11:27 Hct 41.6 % (37-53) 02/03/24 11:27 MCV 90.8 fl (82-101) 02/03/24 11:27 MCH 30.3 pg (27-33) 02/03/24 11:27 MCHC 33.4 g/dL (30-55) 02/03/24 11:27 RDW 12.5 % (12.1-15.1) 02/03/24 11:27 Plt Count 165 10^3/cmm (157-399) 02/03/24 11:27 MPV 10.5 fL (7.4-10.4) H 02/03/24 11:27 Neut % (Auto) 64.9 % 02/03/24 11:27 Lymph % (Auto) 22.1 % 02/03/24 11:27 [place] % (Auto) 8.4 % 02/03/24 11:27 Eos % (Auto) 3.7 % 02/03/24 11:27 Baso % (Auto) 0.6 % 02/03/24 11:27 Neut # (Auto) 5.62 10^3/uL (1.8-7.7) 02/03/24 11:27 Lymph # (Auto) 1.9 10^3/uL (0.8-4.8) 02/03/24 11:27 [place] # (Auto) 0.7 10^3/uL (0.2-0.9) 02/03/24 11:27 Eos # (Auto) 0.3 10^3/uL (0.0-0.8) 02/03/24 11:27 Baso # (Auto) 0.1 10^3/uL (0.0-0.1) 02/03/24 11:27 Nucleated RBC % (auto) 0 % 02/03/24 11:27 Nucleated RBCs # 0.0 /100WBC 02/03/24 11:27 PT 14.10 SECONDS (12.1-14.9) 02/03/24 11:27 INR 1.06 (0.8-1.2) 02/03/24 11:27 Sodium 138 mmol/L (136-145) 02/03/24 11:27 Potassium 3.4 mmol/L (3.5-5.1) L 02/03/24 11:27 Chloride 101 mmol/L (98-107) 02/03/24 11:27 Carbon Dioxide 24 mmol/L (22-29) 02/03/24 11:27 Anion Gap 16.4 (5-19) 02/03/24 11:27 BUN 11 mg/dL (8-23) 02/03/24 11:27 Creatinine 1.0 mg/dL (0.7-1.2) 02/03/24 11:27 GFR Calculation 75.2 mL/min (90-130) L 02/03/24 11:27 Glucose 97 mg/dL (65-115) 02/03/24 11:27 Calculated Osmolality 285 mOsm/kg (285-295) 02/03/24 11:27 Calcium 8.8 mg/dL (8.5-10.5) 02/03/24 11:27 Total Bilirubin 0.9 mg/dL (0.15-1.2) 02/03/24 11:27 AST 56 U/L (0-40) H 02/03/24 11:27 ALT 79 U/L (0-41) H 02/03/24 11:27 Alkaline Phosphatase 72 U/L (40-130) 02/03/24 11:27 Troponin T Baseline 3333 ng/L (0-15) H* 02/03/24 11:27 Troponin T 120 Minute 3318 ng/L (0-15) H 02/03/24 13:22 Delta Troponin T -15 ABS# (0-10) L 02/03/24 13:22 NT-Pro-B Natriuret Pep 971 pg/mL (0-125) H 02/03/24 11:27 Total Protein 6.8 g/dL (6.6-8.7) 02/03/24 11:27 Albumin 4.0 g/dL (3.5-5.2) 02/03/24 11:27 Globulin 2.8 g/dL (1.3-4.6) 02/03/24 11:27 Lipase 26 U/L (13-60) 02/03/24 11:27 Urine Color Dark yellow (Yellow) A 02/03/24 12:18 Urine Appearance Clear (CLEAR) 02/03/24 12:18 Urine pH 6.0 (5-7) 02/03/24 12:18 Ur Specific [place] 1.042 (1.005-1.030) H 02/03/24 12:18 Urine Protein Negative (Negative) 02/03/24 12:18 Urine Glucose (UA) Trace (Normal) H 02/03/24 12:18 Urine Ketones Negative (Negative) 02/03/24 12:18 Urine Blood Negative (Negative) 02/03/24 12:18 Urine Nitrate Negative (Negative) 02/03/24 12:18 Urine Bilirubin Negative (Negative) 02/03/24 12:18 Urine Urobilinogen 2.0 mg/dL (Negative) H 02/03/24 12:18 Ur Leukocyte Esterase Negative (Negative) 02/03/24 12:18 Urine RBC 0-2 /hpf (0-2) 02/03/24 12:18 Urine WBC 0-5 /hpf (0-5) 02/03/24 12:18 Ur Squamous Epith Cells 0-5 /hpf (0-5) 02/03/24 12:18 Amorphous Sediment Not Reportable 02/03/24 12:18 Urine Bacteria None seen /hpf (NONE) 02/03/24 12:18 Hyaline Casts 1.21 /lpf 02/03/24 12:18 Coronavirus (PCR) Negative (Negative) 02/03/24 13:05 Influenza A (PCR) Negative (Negative) 02/03/24 13:05 Influenza Type B (PCR) Negative (Negative) 02/03/24 13:05 RSV (PCR) Negative (Negative) 02/03/24 13:05 All radiology interpretation(s) finalized by discharge Discharge Plan Discharge Patient Disposition: Admitted As Inpatient Clinical Impression: Pulmonary edema, Abdominal pain, Elevated troponin Condition: Stable Prescriptions: No Action clopidogrel 75 mg Tablet 75 mg PO DAILY Qty: 90 3RF aspirin 81 mg Tablet,Delayed Release (Dr/Ec) 81 mg PO DAILY Qty: 90 3RF atorvastatin 40 mg tablet 40 mg PO DAILY Qty: 90 3RF metoprolol tartrate 25 mg tablet 25 mg PO BID Qty: 120 3RF Referrals: Angelita Goss, COMPENSATION AND BENEFITS MANAGER [Primary Care Provider] - Coding Level of Care Code ED Credit Officer for Katarzyna Ruth
--- NOTE | 2024-02-03 11:15 | CT_ITS ---
WS: [id number] CTA CHEST FOLLOWED BY ABDOMEN AND PELVIS TECHNIQUE: Contrast-enhanced CTA of the chest, followed by abdomen, and pelvis with coronal and sagit srini reformatted images and additional MIP Images. CLINICAL INFORMATION: sob, abd pain Comparison: 11/01/2021 DLP: 1010.[address] scans at [facility] use at least one of these dose optimization techniques: automated e xposure control; mA and/or kV adjustment per patient size (includes targeted exams where dose is matc hed to clinical indication); or iterative reconstruction. FINDINGS: Proximal and mid pulmonary arteries are normal. Normal segmental and subsegmental pulmonary arteries. No evidence of pulmonary embolus. Patchy bilateral perihilar groundglass infiltrates can be seen wit h pulmonary edema and/or viral pneumonia. Consider COVID pneumonia. Normal caliber thoracic aorta. Ao rtic calcification. Coronary calcification. A few prominent mediastinal lymph nodes likely reactive. No axillary lymphadenopathy. Mild thoracic kyphosis. Diffuse fatty infiltration of the liver. Normal portal vein and splenic vein. Gallbladder is contract ed. Splenic granulomas. Small esophageal hiatal hernia. Adrenal glands are normal. Normal renal paren chymal enhancement. No hydronephrosis. Small renal cysts. Cortical scarring RIGHT kidney. Normal panc reas. Celiac is patent. 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 Proximal renal arteries are pa tent. Prostate measures 3.7 cm. No evidence of small or large bowel obstruction. Stable complete occlusion of the abdominal aorta at the level of the renal arteries. No contrast opac ification below the renal arteries. This is unchanged since 2021. Chronic iliac stents which are occl uded. CT/CT angio chest w abd pel w con IMPRESSION: 1. No evidence of pulmonary embolus. 2. Bilateral groundglass infiltrates in a perihilar and upper lobe distributio n can be seen with pulmonary edema and/or viral pneumonia.. 3. Complete occlusion of the abdominal aorta at the level of the renal arterie s is unchanged since 2021. Chronic occlusion of the iliac stents unchanged. 4. Diffuse fatty infiltration of the liver.
[2024-02-03] MEDS: ondansetron 2 mg/ML SDV 2 mL 4 MG IVP (11:29)
[2024-02-03] MEDS: morphine 4 mg/mL SDV 1 mL IVP (11:29)
[2024-02-03 11:59] LABS: Basophils # 0.1 10^3/uL (0.0-0.1); Basophils % 0.6 %; Eosinophils # 0.3 10^3/uL (0.0-0.8); Eosinophils % 3.7 %; Hematocrit 41.6 % (37-53); Lymphocytes # 1.9 10^3/uL (0.8-4.8); Lymphocytes % 22.1 %; Mean Corpuscular HGB Conc 33.4 g/dL (30-55); Mean Corpuscular Hemoglobin 30.3 pg (27-33); Mean Corpuscular Volume 90.8 fl (82-101); Mean Platelet Volume 10.5 fL (7.4-10.4); Monocytes # 0.7 10^3/uL (0.2-0.9); Monocytes % 8.4 %; Neutrophils # 5.62 10^3/uL (1.8-7.7); Neutrophils % 64.9 %; Nucleated Red Blood Cells % 0 %; Platelet Count 165 10^3/cmm (157-399); Red Blood Count 4.58 10^6/uL (3.85-5.65); Red Cell Distribution Width 12.5 % (12.1-15.1); White Blood Count 8.66 10^3/uL (3.29-11.43)
[2024-02-03] MEDS: iohexol 350 mg/mL 500 mL Btl (per mL) IV (12:05)
[2024-02-03 12:11] LABS: INR 1.06 (0.8-1.2)
[2024-02-03 12:29] LABS: Alanine Aminotransferase 79 U/L (0-41); Alkaline Phosphatase 72 U/L (40-130); Anion Gap 16.4 (5-19); Aspartate Amino Transferase 56 U/L (0-40); Blood Urea Nitrogen 11 mg/dL (8-23); Calcium 8.8 mg/dL (8.5-10.5); Carbon Dioxide 24 mmol/L (22-29); Chloride 101 mmol/L (98-107); Creatinine Clr Calc Pharmacy 74.8798; Globulin 2.8 g/dL (1.3-4.6); Glomerular Filtration Rate 75.2 mL/min (90-130); Glucose 97 mg/dL (65-115); Lipase 26 U/L (13-60); NT Pro B Type Natriuretic Pept 971 pg/mL (0-125); Osmolality Calculated 285 mOsm/kg (285-295); Potassium 3.4 mmol/L (3.5-5.1); Sodium 138 mmol/L (136-145); Total Bilirubin 0.9 mg/dL (0.15-1.2); Total Protein 6.8 g/dL (6.6-8.7)
[2024-02-03 12:32] LABS: Bilirubin Urine Negative (Negative); Blood Urine Negative (Negative); Glucose Urine UA Trace (Normal); Ketones Urine Negative (Negative); Leukocyte Esterase Urine Negative (Negative); Nitrate Urine Negative (Negative); Protein Urine Negative (Negative); Urine Appearance Clear (CLEAR); Urine Color Dark Yellow (Yellow)
[2024-02-03 12:37] LABS: Add Urine Microscopic? YES; Bacteria Urine None Seen /hpf; Hyaline Casts Urine 1.21 /lpf; RBC Urine 0-2 /hpf (0-2); Squamous Epithelial Cell Urine 0-5 /hpf (0-5); WBC Urine 0-5 /hpf (0-5)
[2024-02-03 12:41] LABS: Specific Gravity, Urine 1.042 (1.005-1.030)
[2024-02-03 12:44] LABS: Troponin(5th) Baseline 3333 ng/L (0-15)
--- NOTE | 2024-02-03 12:47 | ECG_ITS ---
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 Measurements Intervals [place] Rate: 60 P: 60 WI: 153 QRS: 94 QRSD: 92 T: -52 QT: 423 QTc: 424 Interpretive Statements SINUS RHYTHM BORDERLINE RIGHT AXIS DEVIATION [QRS AXIS > 90] POSSIBLE INFERIOR MYOCARDIAL INFARCTION , OF INDETERMINATE AGE [30 ms Q WAVE IN II/aVF] Compared to ECG 02/03/2024 11:16:57 Myocardial infarct finding now present T-wave abnormality no longer present Possible ischemia no longer present Electronically Signed On 02-03-2024 21:27:47 BEEF GRADER by Shaka Mensah M.D. [id number]
[2024-02-03] MEDS: aspirin 81 mg Chew Tablet 324 MG PO (13:02)
[2024-02-03] MEDS: AZITHROMYCIN ADD-Vantage 500 MG in 0.9% NaCl ADD-Vantage 250 ML 250 MG IV (13:56)
[2024-02-03] MEDS: cefTRIAXone 1,000 mg SDV 1000 MG IVP (13:56)
[2024-02-03 13:58] LABS: Troponin 5 2HR 3318 ng/L (0-15); Troponin 5 2HR Delta -15 ABS# (0-10)
--- NOTE | 2024-02-03 14:03 | ECG_ITS ---
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 Measurements Intervals [place] Rate: 57 P: 62 [place]: 151 QRS: 95 QRSD: 101 T: -61 QT: 440 QTc: 432 Interpretive Statements SINUS BRADYCARDIA BORDERLINE RIGHT AXIS DEVIATION [QRS AXIS > 90] POSSIBLE INFERIOR MYOCARDIAL INFARCTION , OF INDETERMINATE AGE [30 ms Q WAVE IN II/aVF] Compared to ECG 02/03/2024 12:47:01 Sinus rhythm no longer present Myocardial infarct finding still present Electronically Signed On 02-03-2024 21:50:40 TINSMITH HELPER by Shaka Mensah M.D. [id number]
[2024-02-03 14:07] LABS: Covid PCR NEGATIVE (Negative); Influenza A NEGATIVE (Negative); Influenza B NEGATIVE (Negative); Respiratory Syncytial Virus Ce NEGATIVE (Negative)
[2024-02-03] MEDS: FUROsemide 10 mg/mL SDV 4mL 40 MG IVP (14:17)
--- NOTE | 2024-02-03 15:34 | P.HP_ITS ---
Providers/Chief Complaint 2 Primary Care Provider: ALYSHA Tomas Chief Complaint: ABD/Back Pain History of Present Illness Pleasant 63-year-old gentleman with CAD, status post PCI with stenting on Friday with ischemic cardiomyopathy, EF 40-45%, with peripheral artery disease, chronically occluded infrarenal aorta, smoking, substance use disorder, HTN, HLD, COPD, presented to ER due to lower abdominal pain. He reports having had some cough. He also had an episode of back pain several days ago radiating down to his lower back and up into his neck although this has resolved. He does report cramping abdominal pain over the last several days. No bowel movement. In ER he is found to have troponin of 3333. CT chest abdomen pelvis with contrast without evidence of PE, bilateral groundglass infiltrates perihilar upper lobe distribution, possibly pulmonary edema versus viral pneumonia. Incidentally also noted complete occlusion of abdominal aorta at the level of renal arteries unchanged from 2021. Diffuse fatty infiltration of the liver. He states that he previously discussed aortic occlusion with vascular surgery but that surgery was deemed to be too high risk. Review of Systems 2 Const: Denies: fever(s), chills, body aches or malaise ENMT: Denies: throat pain Card: Denies: chest pain, edema, pre-syncope or dyspnea on exertion Resp: Reports: productive cough; Denies: dyspnea, change in phlegm color or hemoptysis GI: Reports: abdominal pain; Denies: nausea, vomiting, diarrhea, constipation, hematochezia or melena : Denies: flank pain, difficulty urinating, urinary frequency or hematuria Musc: Reports: back pain; Denies: joint swelling or joint redness Skin/Breast: Denies: rash or new lesions Neuro: Denies: headache(s) or dizziness Endo: Denies: polyuria or polydipsia Medications/Allergies Home Medications Medication Instructions Recorded Confirmed Last Taken Type aspirin 81 mg tablet,delayed 81 mg PO DAILY #90 tabs 02/01/24 02/03/24 02/03/24 Rx release atorvastatin 40 mg tablet 40 mg PO DAILY #90 tabs 02/01/24 02/03/24 02/03/24 Rx clopidogrel 75 mg tablet 75 mg PO DAILY #90 tabs 02/01/24 02/03/24 02/03/24 Rx metoprolol tartrate 25 mg tablet 25 mg PO BID #120 tabs 02/01/24 02/03/24 02/03/24 Rx Allergies Allergy/AdvReac Type Severity Reaction Status Date / Time No Known Allergies Allergy Verified 11/12/23 14:52 PFSH Acute 2 PFSH: Medical History Lung mass Hemorrhoids Opioid contract exists Leriche syndrome COPD (chronic obstructive pulmonary disease) CAD (coronary atherosclerotic disease) PAD (peripheral artery disease) Dyslipidemia HTN (hypertension) Bipolar disorder 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 Myocardial infarct, old Ischemic cardiomyopathy Tobacco abuse Chest pain, atypical Surgical History S/P percutaneous transluminal angioplasty (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) Family History Father Cancer Social History Smoking and tobacco/nicotine status: unknown if used tobacco/nicotine Alcohol intake: never Substance/Drug Use: current Current gender identity: Male Vitals/I&O/Wt Last Vital Signs Temp 98.3 F 02/03/24 11:03 Pulse 55 L 02/03/24 14:18 Resp 18 02/03/24 11:29 BP 113/48 02/03/24 14:18 Pulse Ox 98 02/03/24 14:18 O2 Del Method Nasal Cannula 02/03/24 14:18 O2 Flow Rate 2 02/03/24 14:18 Weight last 48 hrs Weight 81.647 kg Physical Exam 2 Const: COMMON NORMALS: patient oriented x3 and alert GENERAL APPEARANCE: c ooperative ORIENTATION/CONSCIOUSNESS: Yes awake HENMT: COMMON NORMALS: oropharynx normal Neck/C-Spine: COMMON NORMALS: no JVD Resp: COMMON NORMALS: normal respiratory effort and clear to auscultation bilaterally AUSCULTATION: clear to auscultation bilaterally Cardio: COMMON NORMALS: no JVD, regular rhythm, S1 normal heart sound present, S2 normal heart sound present and No murmurs present (Cardio) RHYTHM: regular rhythm HEART SOUNDS: S1 normal heart sound present and S2 normal heart sound present GI: COMMON NORMALS: Normal to inspection, nondistended, normoactive bowel sounds present, Soft to palpation and non-tender PALPATION: Yes Soft to palpation Extremity: COMMON NORMALS: no joint enlargement and no pedal edema Neuro: COMMON NORMALS: patient oriented x3 and moves all extremities S ENSORIUM/ORIENTATION: Yes alert Skin: COMMON NORMALS: no rashes or lesions noted GENERAL SKIN EXAM: no rashes or lesions noted Data 02/03/24 11:27 02/03/24 11:27 Micro: Microbiology 02/03/24 13:25 Blood Culture - Preliminary Blood SPECIMEN COLLECTED 02/03/24 13:22 Blood Culture - Preliminary Blood SPECIMEN COLLECTED A&P Assessment and plan (1) Ground glass opacity present on imaging of lung: Presenting with a few symptoms including an episode of back pain radiating to his neck several days ago, then has been having cramping lower abdominal pain, also cough, groundglass opacity noted on CT, influenza, COVID, RSV PCR has been sent and on review is negative. Reviewed vitals, CBC, CMP, UA, chest x-ray, CT chest abdomen pelvis, EKG, troponin, lactic acid, UDS, lipase, reviewed ER note, discussed with ER provider. Requesting respiratory viral panel. Possible viral pneumonia. Versus possible pulmonary edema with decompensated congestive heart failure after recent STEMI. Troponin noted elevated up to 3333. Does not have chest pain. He has noted to have new transaminitis, AST up to 56, ALT up to 579. Abdominal discomfort, consideration of possible congestive hepatopathy and enteropathy. He does have history of SMA stenosis, discussed with him lower possibility of bowel ischemia, although no anion gap and lactic acid is normal. No suggestion of ischemic bowel on contrasted abdominal CT. Monitor symptoms, reassess blood counts. For now bowel rest with clear liquid diet. Additional assessment with limited TTE. Pending cardiology consultation as well. Monitor on telemetry. Oxygen support per protocol. Breathing treatments. (2) Back pain: Episode of back pain day before yesterday after getting home after a libertarian, back pain radiating all the way up into his neck. This has resolved. Reviewed recent head CT. No PE. No obvious dissection. Currently no chest pain or pressure or back pain. Troponin is noted elevated. He states he has been taking his aspirin and Plavix. Currently with lower abdominal pain/discomfort, does have some productive cough. Noted groundglass opacities, possible viral pneumonia versus pulmonary edema with decompensated CHF. Additional assessment with limited TTE. Viral panel. Monitor vitals, monitor on telemetry with risk of cardiac arrhythmia after possible reperfusion injury. Reviewed EKG, no STEMI, no evidence of active ischemia/myocarditis/pericarditis on my interpretation, pending official read. Reassess condition. (3) Abdominal pain: Lower abdominal pain with cramping, lack of bowel movement. Denies melena or hematochezia. Does have history of Leriche syndrome with lower abdominal aortic occlusion, as well as heavy calcification of and stenosis of SMA. Discussed with him lower possibility of bowel ischemia. Currently abdomen is soft on exam without evidence of peritonitis. Contrast and CT without evidence of ischemia. Lactic acid reviewed, 1. Lipase 26. Monitor for changes in symptoms. Further assessment of cardiac function with limited TTE after recent STEMI and stenting, with troponin elevation. Assess for possible decrease in perfusion possibly becoming symptomatic with gut hypoperfusion. He does note some bloating. Monitor for development of ileus. For now bowel rest clear liquids as tolerating. (4) Elevated troponin: For elevation up to 2333 at baseline, 2 hours noted 2318. Recent STEMI with stenting over the weekend. At that time troponin up to 1600. Current elevation possibly residual following STEMI, although he did have an episode of back pain radiating to his neck after a libertarian over the weekend. He states since then has stopped smoking or using any substances. Previously tested positive for amphetamine. He does state he has been taking aspirin and Plavix. Monitor on telemetry with risk of arrhythmia from possible reperfusion injury. Assessment limited TTE with noted groundglass opacity, possible pulmonary edema. NT proBNP higher than before at 971. Previously 152. Suspected decompensated systolic CHF. Previously noted ischemic cardiomyopathy EF down to 40-45%. Reassess limited TTE. Pending cardiology consultation. Continue aspirin, Plavix, metoprolol, atorvastatin. No PE on consciousness CT. 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 (5) Transaminitis: Noted new transaminitis, AST up to 56, ALT of 79. Possible decompensated systolic CHF with groundglass opacities on CT, possible congestive hepatopathy, possible congestive enteropathy with abdominal symptoms. Previously with substance use history, states has stopped any substance use ever since his [place] over the weekend. States that he has made a pact with God that he is not going to go back to smoking or any substance use at all and that he is effectively quit, that God had allowed him to live last time, so he is going to hold up his end of the bargain. Follow-up viral hepatitis panel which is requested. Repeat liver parameters. Further assessment with limited TTE. Received IV push Lasix, reassess electrolytes with risk of deficiency with IV Lasix, potassium 3.4. Supplement. Reviewed magnesium. Recheck chemistry. Recheck magnesium. (6) Goals of care, counseling/discussion: In case of cardiopulmonary arrest he would want attempted resuscitation, but in case of lack of successful resuscitation would not want protracted repeated attempts, similarly in case of lack of neurologic recovery would not want persistent life support, and those situations in case of lack of recovery with resuscitation would instead at that point want to transition to comfort measures and allow to pass away. In case he could not make decisions for himself in a situation like that does not really have a person that he could have make decisions on his behalf. Does have family, but would not necessarily want them to make decisions for him, however, may think about his younger sister and potentially speak with her about that. Plan Constipation: Monitor for ileus.Add bowel regimen. CAD, status post PCI with stenting on Friday For STEMI. States has been taking aspirin and Plavix. Continue DAPT, beta-crys, statin.States he has quit smoking and any surreptitious substance use. Ischemic cardiomyopathy, EF 40-45%, Continue DAPT, statin, beta-crys. Blood pressure soft, if will improve/tolerating consider addition of further GDMT. Peripheral artery disease, Continue aspirin, statin. Chronically occluded infrarenal aorta, Smoking, Discussed smoking cessation for 4 minutes. He states he has pretty much quit cold turkey since Friday he is no longer smoking. Declines any nicotine replacement at this time. Substance use disorder, States that he has stopped any surreptitious substance use since last Friday STEMI and even more so after an episode of back pain radiating to his neck after a libertarian on Friday. HTN, Monitor blood pressures. Continue metoprolol.Blood pressure so far has been soft. HLD, Continue statin COPD:Breathing treatments. Attestations 2 Medical Necessity Statement*: Place in observation for additional assessment and management of possible decompensated systolic CHF after recent STEMI, episode of back pain, lower abdominal pain in a gentleman with Leriche syndrome, possible developing ileus with severe SMA stenosis, with groundglass opacities possible pulmonary edema versus viral pneumonia, with new transaminitis possible congestive hepatopathy, congestive enteropathy and gentleman status post PCI with stenting after STEMI over the weekend, multiple comorbidities as above. , High MDM includes amount and/or complexity of data reviewed/ordered [ previous or external records, resulted lab(s)/test(s), ordered lab(s)/test(s), independent test interpretation and other healthcare professional discussion] as documented and High Time for a total of 80 minutes, includes reviewing past or interval history, examining/interviewing patient, placing orders, counseling patient/family/other support, discussing plan of care with staff, communicating with other healthcare providers, documenting encounter and coordinating care Diagnoses Ground glass opacity present on imaging of lung R91.8 Back pain M54.9 Abdominal pain R10.9 Elevated troponin R79.89 Transaminitis R74.01 Goals of care, counseling/discussion Z71.89
[2024-02-03 16:15] LABS: Magnesium 2.1 mg/dL (1.7-2.3)
[2024-02-03 16:52] LABS: Hepatitis A Antibody IgM Non-Reactive (Nonreactive); Hepatitis B Core IgM Non-Reactive (Nonreactive); Hepatitis B Surface Antigen Non-Reactive (Nonreactive); Hepatitis C Virus Antibody Non-Reactive (Nonreactive)
--- NOTE | 2024-02-03 17:06 | PM.CONSULT ---
Providers/Reason For Consult Consulting Physician/Specialty*: Bebeto Magdaleno MD Reason for Consult*: elevated troponin /recent SD Requesting Physician: Dr. Barros/Dr. Mooney Attending Physician: Dr. Mooney Primary Care Provider: ALYSHA Tomas History of Present Illness History of Present Illness Sheldon Isaac is a 63 year old male who recently on Friday had an acute STEMI and was taken to the Maintenance Coordinator for intervention of a nearly occluded previously stent in the LAD and circumflex in which he underwent stenting. He states he has been compliant with aspirin and Plavix. He comes in with a main complaint of right hip pain and abdominal pain. He denies any chest pain or significant shortness of breath. Troponin previously was trending upwards from 26 up to 1675. Today troponin was elevated and trending slightly downward at 3333. EKG showed no acute ST or T wave abnormalities. CTA abdomen pelvis was done showing no acute findings. Patient does not appear to be in acute CHF. Previous echo showed EF of 40 to 45%. Of note he has history of drug abuse in the past and tested positive for amphetamines. According the patient, he has not used any drugs since the hospital discharge. He also been compliant with medications. This patient is known to have severe peripheral artery disease with, chronic occlusion of the iliac stents, chronic occlusion of the abdominal aorta below the level of the renal arteries, history of Leriche syndrome, severe COPD, high blood pressure, dyslipidemia, multiple drug abuse, etc. Review of Systems Narrative: Consitutional: denies fever, chills, body aches, or changes in appetite, denies abnormal weight loss Eyes: Denies changes in vision Card: Denies chest pain, palpitations, irregular heart rhythm, edema, syncope, shortness of breath, orthopnea, leg pain with exertion Resp: Denies shortness of breath, denies hemoptysis, denies cough GI: Reports abdominal pain that radiates to his back : denies blood in urine, denies dysuria Musc: Denies extremity pain, denies limited range of motion or recent injury Skin: Denies rash, lesions, or wounds, denies changes to skin color Neuro: Denies nubmness in extremities, h/a, s/s of stroke [place]: Denies easy bruiding/bleeding Medications/Allergies Home Medications Medication Instructions Recorded Confirmed Last Taken Type aspirin 81 mg tablet,delayed 81 mg PO DAILY #90 tabs 02/01/24 02/03/24 02/03/24 Rx release atorvastatin 40 mg tablet 40 mg PO DAILY #90 tabs 02/01/24 02/03/24 02/03/24 Rx clopidogrel 75 mg tablet 75 mg PO DAILY #90 tabs 02/01/24 02/03/24 02/03/24 Rx metoprolol tartrate 25 mg tablet 25 mg PO BID #120 tabs 02/01/24 02/03/24 02/03/24 Rx Allergies Allergy/AdvReac Type Severity Reaction Status Date / Time No Known Allergies Allergy Verified 11/12/23 14:52 PFSH Acute PFSH: Medical History Lung mass Hemorrhoids Opioid contract exists Leriche syndrome COPD (chronic obstructive pulmonary disease) CAD (coronary atherosclerotic disease) PAD (peripheral artery disease) Dyslipidemia HTN (hypertension) Bipolar disorder 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 Myocardial infarct, old Ischemic cardiomyopathy Tobacco abuse Chest pain, atypical Surgical History S/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) Family History Father Cancer Social History Smoking and tobacco/nicotine status: unknown if used tobacco/nicotine Alcohol intake: never Substance/Drug Use: current Current gender identity: Male Vitals/I&O/Wt Last Vital Signs Temp 98.3 F 02/03/24 11:03 Pulse 55 L 02/03/24 14:18 Resp 18 02/03/24 11:29 BP 113/48 02/03/24 14:18 Pulse Ox 98 02/03/24 14:18 O2 Del Method Nasal Cannula 02/03/24 14:18 O2 Flow Rate 2 02/03/24 14:18 Weight last 48 hrs Weight 180 lb Physical Exam Narrative: General: No apparent distress, healthy appearing, well nourished HENMT: normoceophalic Eye: PERRL Neck: No carotid bruit bilaterally Muskuloskeletal: Full ROM Lymphatic: no lymphedema noted Respiratory: Normal respiratory effort, clear to auscultation bilaterally throughout all lung armstrong, no use of accessory muscles Cardio: No JVD, regular rate, regular rhythm, S1 S2 normal, no murmurs, peripheral pulses 2+ palpated bilaterally l GI: slightly distended Extremities: Full ROM, normal, normal capillary refill, no cyanosis or edema Neuro: Alert and oriented x4, no focal motor deficits Psych: Affect normal, denies suicidal ideation, mental status grossly normal Skin: No rashes or lesions noted, no wounds Data 02/03/24 11:27 02/03/24 11:27 Other Labs: Laboratory Last Values WBC 8.66 10^3/uL (3.29-11.43) 02/03/24 11:27 RBC 4.58 10^6/uL (3.85-5.65) 02/03/24 11:27 Hgb 13.90 g/dL (11.27-16.99) 02/03/24 11:27 Hct 41.6 % (37-53) 02/03/24 11:27 MCV 90.8 fl (82-101) 02/03/24 11:27 MCH 30.3 pg (27-33) 02/03/24 11:27 MCHC 33.4 g/dL (30-55) 02/03/24 11:27 RDW 12.5 % (12.1-15.1) 02/03/24 11:27 Plt Count 165 10^3/cmm (157-399) 02/03/24 11:27 MPV 10.5 fL (7.4-10.4) H 02/03/24 11:27 Neut % (Auto) 64.9 % 02/03/24 11:27 Lymph % (Auto) 22.1 % 02/03/24 11:27 [place] % (Auto) 8.4 % 02/03/24 11:27 Eos % (Auto) 3.7 % 02/03/24 11:27 Baso % (Auto) 0.6 % 02/03/24 11:27 Neut # (Auto) 5.62 10^3/uL (1.8-7.7) 02/03/24 11:27 Lymph # (Auto) 1.9 10^3/uL (0.8-4.8) 02/03/24 11:27 [place] # (Auto) 0.7 10^3/uL (0.2-0.9) 02/03/24 11:27 Eos # (Auto) 0.3 10^3/uL (0.0-0.8) 02/03/24 11:27 Baso # (Auto) 0.1 10^3/uL (0.0-0.1) 02/03/24 11:27 Nucleated RBC % (auto) 0 % 02/03/24 11:27 Nucleated RBCs # 0.0 /100WBC 02/03/24 11:27 PT 14.10 SECONDS (12.1-14.9) 02/03/24 11:27 INR 1.06 (0.8-1.2) 02/03/24 11:27 Sodium 138 mmol/L (136-145) 02/03/24 11:27 Potassium 3.4 mmol/L (3.5-5.1) L 02/03/24 11:27 Chloride 101 mmol/L (98-107) 02/03/24 11:27 Carbon Dioxide 24 mmol/L (22-29) 02/03/24 11:27 Anion Gap 16.4 (5-19) 02/03/24 11:27 BUN 11 mg/dL (8-23) 02/03/24 11:27 Creatinine 1.0 mg/dL (0.7-1.2) 02/03/24 11:27 GFR Calculation 75.2 mL/min (90-130) L 02/03/24 11:27 Glucose 97 mg/dL (65-115) 02/03/24 11:27 Calculated Osmolality 285 mOsm/kg (285-295) 02/03/24 11:27 Lactic Acid 1.0 mmol/L (0.5-2.2) 02/03/24 14:37 Calcium 8.8 mg/dL (8.5-10.5) 02/03/24 11:27 Magnesium 2.1 mg/dL (1.7-2.3) 02/03/24 11:27 Total Bilirubin 0.9 mg/dL (0.15-1.2) 02/03/24 11:27 AST 56 U/L (0-40) H 02/03/24 11:27 ALT 79 U/L (0-41) H 02/03/24 11:27 Alkaline Phosphatase 72 U/L (40-130) 02/03/24 11:27 Troponin T Baseline 3333 ng/L (0-15) H* 02/03/24 11:27 Troponin T 120 Minute 3318 ng/L (0-15) H 02/03/24 13:22 Delta Troponin T -15 ABS# (0-10) L 02/03/24 13:22 Troponin T Hi Sens 6Hr 3517 ng/L (0-15) H 02/03/24 17:16 Troponin T Hi Sens 6Hr Delta 184 ng/L (0-12) H* 02/03/24 17:16 NT-Pro-B Natriuret Pep 971 pg/mL (0-125) H 02/03/24 11:27 Total Protein 6.8 g/dL (6.6-8.7) 02/03/24 11:27 Albumin 4.0 g/dL (3.5-5.2) 02/03/24 11:27 Globulin 2.8 g/dL (1.3-4.6) 02/03/24 11:27 Lipase 26 U/L (13-60) 02/03/24 11:27 Urine Color Dark yellow (Yellow) A 02/03/24 12:18 Urine Appearance Clear (CLEAR) 02/03/24 12:18 Urine pH 6.0 (5-7) 02/03/24 12:18 Ur Specific [place] 1.042 (1.005-1.030) H 02/03/24 12:18 Urine Protein Negative (Negative) 02/03/24 12:18 Urine Glucose (UA) Trace (Normal) H 02/03/24 12:18 Urine Ketones Negative (Negative) 02/03/24 12:18 Urine Blood Negative (Negative) 02/03/24 12:18 Urine Nitrate Negative (Negative) 02/03/24 12:18 Urine Bilirubin Negative (Negative) 02/03/24 12:18 Urine Urobilinogen 2.0 mg/dL (Negative) H 02/03/24 12:18 Ur Leukocyte Esterase Negative (Negative) 02/03/24 12:18 Urine RBC 0-2 /hpf (0-2) 02/03/24 12:18 Urine WBC 0-5 /hpf (0-5) 02/03/24 12:18 Ur Squamous Epith Cells 0-5 /hpf (0-5) 02/03/24 12:18 Amorphous Sediment Not Reportable 02/03/24 12:18 Urine Bacteria None seen /hpf (NONE) 02/03/24 12:18 Hyaline Casts 1.21 /lpf 02/03/24 12:18 Coronavirus (PCR) Negative (Negative) 02/03/24 13:05 Hepatitis A IgM Ab Non-reactive (Nonreactive) 02/03/24 11:27 Hep Bs Antigen Non-reactive (Nonreactive) 02/03/24 11:27 Hep B Core IgM Ab Non-reactive (Nonreactive) 02/03/24 11:27 Hepatitis C Antibody Non-reactive (Nonreactive) 02/03/24 11:27 Influenza A (PCR) Negative (Negative) 02/03/24 13:05 Influenza Type B (PCR) Negative (Negative) 02/03/24 13:05 RSV (PCR) Negative (Negative) 02/03/24 13:05 Micro: Microbiology 02/03/24 13:25 Blood Culture - Preliminary Blood SPECIMEN COLLECTED 02/03/24 13:22 Blood Culture - Preliminary Blood SPECIMEN COLLECTED A&P Assessment and plan (1) Elevated troponin: Patient's troponin is now trending down. Most likely this is from the recent myocardial infarction. It appears that the levels are trending down. Possibility of repeat myocardial infarction cannot be excluded but my clinical suspicion be low. Apparently the patient had severe chest pain with the recent SD. But he has no chest pain whatsoever at this time. His symptoms are mainly pain in the lower stomach and in the leg. An echocardiogram would be helpful to evaluate for any new wall motion abnormalities or worsening of the LV systolic function. (2) Myocardial infarct, old: Patient has had a recent STEMI. Should continue beta-crys and dual antiplatelet therapy as previously prescribed. The EKG shows normal sinus rhythm with a diffuse nonspecific T wave changes. Compared to the EKG from 3 days ago, there is no significant change. (3) Ischemic cardiomyopathy: The repeat limited echocardiogram failed and LV ejection fraction of 45 to 50%. There is slight improvement in the ejection fraction from the previous study on the 30 of January. 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 Whether he is developing any new lesions in the collateral vessels or not should be a consideration. 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 Possibility of progression of the occlusive disease also should be a consideration Plan The other problems are Mild hypokalemia History of smoking abuse/drug abuse-patient has decided not to go back to this habit. He seems to have a desire to live right This patient may be kept on the current medications for the time being. Apparently the CT of the abdomen and the pelvis is unremarkable except for the vascular occlusions as mentioned above. If he has any recurrence of pain, extending into the lower extremities, may need to consider peripheral angiogram with runoff. The cardiac status seems to be stable at this point. Thank you for the opportunity to eval this patient and make these recommendations Coding Level of Care Code 06730 Diagnoses Elevated troponin R79.89 Myocardial infarct, old I25.2 Ischemic cardiomyopathy I25.5 Abdominal aorta thrombosis I74.09 Peripheral artery occlusion I77.9
--- NOTE | 2024-02-03 17:25 | USCV_ITS ---
Sheldon Isaac Age: 63 Gender: M : 1960 Exam Date: 02/03/2024 17:39 Ordering Phys: Malu Conde NP Technologist: CT Exam Location: [facility] [place] Indication: cp BP: 125 / 64 HR: Rhythm: Sinus Technical Quality: Adequate MEASUREMENTS (Male / Female) Normal Values 2D ECHO LVOT Diameter 2.0 cm LV Ejection Fraction MOD 4C 66.8 % LV Ejection Fraction MOD 2C 69.9 % LV Ejection Fraction 2C AL 70.5 % LA Diameter 3.7 cm RA Systolic Volume 4C AL 40.7 ml RA Systolic Volume 4C MOD 39.5 ml LA Sys Volume AL 41.5 cm cubed LA Sys Volume Index AL 20.7 cm cubed/m squared Aorta at Sinotubular Diameter 2.5 cm M-MODE LA Ao Ratio MM 1.4 AV Cusp Separation MM 1.5 cm FINDINGS Left Ventricle Mild diffuse hypokinesia of the septum. Mild hypokinesia of the apical inferior wall segment. Relative hypokinesia of the mid and apical inferior wall segment. Overall LV ejection fraction around 45 to 50% Right Ventricle The right ventricle is normal in size and function. Right Atrium The right atrium is normal in size. Left Atrium The left atrium is normal in size. Mitral Valve No gross morphologic abnormalities Aortic Valve No gross morphologic abnormalities Tricuspid Valve No gross morphologic abnormalities Pulmonic Valve No gross abnormalities noted Pericardium Normal pericardium without effusion. Aorta Normal ascending aorta dimension. IVC The inferior vena cava appears normal. CONCLUSIONS Mild diffuse hypokinesia of the septum. Mild hypokinesia of the apical inferior wall segment. Relative hypokinesia of the mid and apical inferior wall segment. Overall LV ejection fraction around 45 to 50%. (visual) There is no pericardial effusion. There are no intracardiac masses. Compared to the study from 01/31/2024, there may be a slight improvement in the ejection fraction Dr Bebeto Magdaleno MD [facility] (Electronically Signed) Final Date: 03 February 2024 18:16 S
[2024-02-03 17:59] LABS: Troponin 5 6HR 3517 ng/L (0-15); Troponin 5 6HR Delta 184 ng/L (0-12)
--- NOTE | 2024-02-03 18:03 | ECG_ITS ---
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 Measurements Intervals [place] Rate: 68 P: 57 NC: 146 QRS: 92 QRSD: 94 T: -61 QT: 407 QTc: 435 Interpretive Statements SINUS RHYTHM POSSIBLE LEFT ATRIAL ENLARGEMENT [-0.1mV P-WAVE IN V1/V2] BORDERLINE RIGHT AXIS DEVIATION [QRS AXIS > 90] MODERATE T-WAVE ABNORMALITY, CONSIDER INFERIOR ISCHEMIA [-0.1+ mV T-WAVE IN II/aVF] Compared to ECG 02/03/2024 14:03:38 T-wave abnormality now present Possible ischemia now present Sinus bradycardia no longer present Myocardial infarct finding no longer present Electronically Signed On 02-03-2024 21:46:22 APPLICATION DEVELOPMENT INTERN by Shaka Mensah M.D. [email or web address]
[2024-02-03] MEDS: enoxaparin 40 mg/0.4 mL Syringe SUBCUT (19:05)
[2024-02-03] MEDS: potassium chloride ER 20 mEq Tablet 40 MEQ PO (19:05)
--- NOTE | 2024-02-03 19:28 | PC.NURSE ---
PER DR. MEJIA, HOLD METOPROLOL 25MG DUE TO BP READING. PER DR. MEJIA ORDER TO BE CHANGED TO 12.5MG
[2024-02-03] MEDS: ipratropium-albuterol 3 mL Neb INHALATION (20:46)
[2024-02-03 21:31] LABS: Adenovirus Not Detected (NOT DETECT); Chlamydia Pneumoniae Not Detected (NOT DETECT); Coronavirus 229E,HKU1,NL63,OC4 Not Detected (NOT DETECT); Human Metapneumovirus Not Detected (NOT DETECT); Human Rhinovirus/Enterovirus Not Detected (NOT DETECT); Influenza A Not Detected (NOT DETECT); Influenza A H1 Not Detected (NOT DETECT); Influenza A H1-2009 Not Detected (NOT DETECT); Influenza A H3 Not Detected (NOT DETECT); Influenza B Not Detected (NOT DETECT); Mycoplasma Pneumoniae Not Detected (NOT DETECT); Parainfluenza Virus Type 1 Not Detected (NOT DETECT); Parainfluenza Virus Type 2 Not Detected (NOT DETECT); Parainfluenza Virus Type 3 Not Detected (NOT DETECT); Parainfluenza Virus Type 4 Not Detected (NOT DETECT); Respiratory Syncytial Virus A Not Detected (NOT DETECT); Respiratory Syncytial Virus B Not Detected (NOT DETECT); SARS-COV-2 Not Detected (NOT DETECT)
[2024-02-04] VITALS (7 sets, daily range): BP systolic 90–128; BP diastolic 42–71; PULSE 59–89; RESP 12–22; TEMP 36.5–36.9; O2SAT 94–99
[2024-02-04 05:14] LABS: Basophils % 0.5 %; Eosinophils # 0.2 10^3/uL (0.0-0.8); Eosinophils % 3.1 %; Lymphocytes # 1.6 10^3/uL (0.8-4.8); Lymphocytes % 21.1 %; Mean Corpuscular HGB Conc 33.4 g/dL (30-55); Mean Corpuscular Hemoglobin 30.2 pg (27-33); Mean Corpuscular Volume 90.3 fl (82-101); Mean Platelet Volume 11.1 fL (7.4-10.4); Monocytes # 0.6 10^3/uL (0.2-0.9); Monocytes % 8.6 %; Neutrophils # 4.93 10^3/uL (1.8-7.7); Neutrophils % 66.4 %; Nucleated Red Blood Cells % 0 %; Platelet Count 162 10^3/cmm (157-399); Red Blood Count 4.21 10^6/uL (3.85-5.65); Red Cell Distribution Width 12.4 % (12.1-15.1); White Blood Count 7.43 10^3/uL (3.29-11.43)
[2024-02-04 05:49] LABS: Alanine Aminotransferase 66 U/L (0-41); Albumin Level 3.6 g/dL (3.5-5.2); Alkaline Phosphatase 64 U/L (40-130); Blood Urea Nitrogen 14 mg/dL (8-23); Calcium 8.3 mg/dL (8.5-10.5); Carbon Dioxide 22 mmol/L (22-29); Chloride 101 mmol/L (98-107); Creatinine Clr Calc Pharmacy 68.1593; Globulin 2.7 g/dL (1.3-4.6); Glomerular Filtration Rate 67.4 mL/min (90-130); Glucose 113 mg/dL (65-115); Magnesium 1.9 mg/dL (1.7-2.3); Osmolality Calculated 283 mOsm/kg (285-295); Sodium 136 mmol/L (136-145); Total Bilirubin 0.7 mg/dL (0.15-1.2); Total Protein 6.3 g/dL (6.6-8.7)
[2024-02-04 06:04] LABS: Anion Gap 17.2 (5-19); Aspartate Amino Transferase 45 U/L (0-40); Potassium 4.2 mmol/L (3.5-5.1)
--- NOTE | 2024-02-04 08:49 | PM.PN ---
Subjective Subjective: The patient is remaining chest pain-free. No specific cardiac symptoms. Vitals are remained stable. No arrhythmias on the monitor. Medications: Medication Review Details: Current Medications Acetaminophen (Acetaminophen 325 Mg Tablet) 650 mg PO Q6H PRN PRN Reason: Mild/Mod Pain Or Temp >/= 101 Albuterol/Ipratropium (Ipratropium-Albuterol 3 Ml Neb) 3 ml INHALATION Q6H.RESP [facility] Last Admin: 02/04/24 05:21 Dose: Not Given Albuterol/Ipratropium (Ipratropium-Albuterol 3 Ml Neb) 3 ml INHALATION Q6H PRN PRN Reason: SHORTNESS OF BREATH Aspirin (Aspirin 81 Mg Ec Tablet) 81 mg PO DAILY [facility] Atorvastatin Calcium (Atorvastatin 40 Mg Tablet) 40 mg PO DAILY [facility] Clopidogrel Bisulfate (Clopidogrel 75 Mg Tablet) 75 mg PO DAILY [facility] Enoxaparin Sodium (Enoxaparin 40 Mg/0.4 Ml Syringe) 40 mg SUBCUT Q24H [facility] Last Admin: 02/03/24 19:05 Dose: 40 mg Metoprolol Tartrate (Metoprolol Tartrate 25 Mg Tablet) 25 mg PO BID [facility] Last Admin: 02/03/24 22:52 Dose: Not Given Ondansetron HCl (Ondansetron 2 Mg/Ml Sdv 2 Ml) 4 mg IVP Q8H PRN PRN Reason: vomiting, or N/V if npo Vitals/I&O/Wt Last Vital Signs Temp 98.5 F 02/04/24 08:00 Pulse 72 02/04/24 08:00 Resp 22 H 02/04/24 08:00 BP 110/56 02/04/24 08:00 Pulse Ox 95 02/04/24 08:00 O2 Del Method Room Air 02/04/24 08:00 O2 Flow Rate 2 02/03/24 18:23 02/03/24 02/04/24 02/04/24 22:59 06:59 14:59 Intake Total 480 / 730 480 / 1210 Output Total 600 / 600 Balance 480 / 730 -120 / 610 Weight last 48 hrs Weight 180 lb 8 oz Weight 180 lb 8 oz Weight 180 lb Physical Exam Narrative: GENERAL: The patient is alert and oriented times three. Not in any acute distress. HEENT: No significant pallor, icterus or lymphadenopathy.Oral cavity: There are no mucous membrane lesions. NECK: Trachea appears to be central. No masses noted. No JVD or thyromegaly appreciated. RESPIRATORY: Chest is symmetrical. No intercostals muscle retraction or any accessory muscle activation. There is no chest wall tenderness. Breath sounds are heard bilaterally. No rales or rhonchi heard. No evidence of any consolidation. BREASTS: Deferred. HEART: The heart sounds are normal. No S3 or S4. Short systolic murmur in the lower sternal border no pericardial rub ABDOMEN: No vessel pulsations or distention. No tenderness. No organomegaly appreciated. Bowel sounds are normally heard. : Deferred. RECTAL: Deferred. LYMPHATIC: No lymphadenopathy noted in the neck. EXTREMITIES: No edema or cyanosis. No clubbing. MUSCULOSKELETAL: No acute joint deformities or swelling SKIN: Extensive tattoo markings. No ecchymosis or rashes NEUROPSYCHIATRIC: The patient is alert and oriented x3. Appears to be in a good mood. No tremors or rigidity noted. Data 02/04/24 02:50 02/04/24 02:50 Other Labs: Laboratory Last Values WBC 7.43 10^3/uL (3.29-11.43) 02/04/24 02:50 RBC 4.21 10^6/uL (3.85-5.65) 02/04/24 02:50 Hgb 12.70 g/dL (11.27-16.99) 02/04/24 02:50 Hct 38.0 % (37-53) 02/04/24 02:50 MCV 90.3 fl (82-101) 02/04/24 02:50 MCH 30.2 pg (27-33) 02/04/24 02:50 MCHC 33.4 g/dL (30-55) 02/04/24 02:50 RDW 12.4 % (12.1-15.1) 02/04/24 02:50 Plt Count 162 10^3/cmm (157-399) 02/04/24 02:50 MPV 11.1 fL (7.4-10.4) H 02/04/24 02:50 Neut % (Auto) 66.4 % 02/04/24 02:50 Lymph % (Auto) 21.1 % 02/04/24 02:50 [place] % (Auto) 8.6 % 02/04/24 02:50 Eos % (Auto) 3.1 % 02/04/24 02:50 Baso % (Auto) 0.5 % 02/04/24 02:50 Neut # (Auto) 4.93 10^3/uL (1.8-7.7) 02/04/24 02:50 Lymph # (Auto) 1.6 10^3/uL (0.8-4.8) 02/04/24 02:50 [place] # (Auto) 0.6 10^3/uL (0.2-0.9) 02/04/24 02:50 Eos # (Auto) 0.2 10^3/uL (0.0-0.8) 02/04/24 02:50 Baso # (Auto) 0.0 10^3/uL (0.0-0.1) 02/04/24 02:50 Nucleated RBC % (auto) 0 % 02/04/24 02:50 Nucleated RBCs # 0.0 /100WBC 02/04/24 02:50 PT 14.10 SECONDS (12.1-14.9) 02/03/24 11:27 INR 1.06 (0.8-1.2) 02/03/24 11:27 Sodium 136 mmol/L (136-145) 02/04/24 02:50 Potassium 4.2 mmol/L (3.5-5.1) 02/04/24 02:50 Chloride 101 mmol/L (98-107) 02/04/24 02:50 Carbon Dioxide 22 mmol/L (22-29) 02/04/24 02:50 Anion Gap 17.2 (5-19) 02/04/24 02:50 BUN 14 mg/dL (8-23) 02/04/24 02:50 Creatinine 1.1 mg/dL (0.7-1.2) 02/04/24 02:50 GFR Calculation 67.4 mL/min (90-130) L 02/04/24 02:50 Glucose 113 mg/dL (65-115) 02/04/24 02:50 Calculated Osmolality 283 mOsm/kg (285-295) L 02/04/24 02:50 Lactic Acid 1.0 mmol/L (0.5-2.2) 02/03/24 14:37 Calcium 8.3 mg/dL (8.5-10.5) L 02/04/24 02:50 Magnesium 1.9 mg/dL (1.7-2.3) 02/04/24 02:50 Total Bilirubin 0.7 mg/dL (0.15-1.2) 02/04/24 02:50 AST 45 U/L (0-40) H 02/04/24 02:50 ALT 66 U/L (0-41) H 02/04/24 02:50 Alkaline Phosphatase 64 U/L (40-130) 02/04/24 02:50 Troponin T Baseline 3333 ng/L (0-15) H* 02/03/24 11:27 Troponin T 120 Minute 3318 ng/L (0-15) H 02/03/24 13:22 Delta Troponin T -15 ABS# (0-10) L 02/03/24 13:22 Troponin T Hi Sens 6Hr 3517 ng/L (0-15) H 02/03/24 17:16 Troponin T Hi Sens 6Hr Delta 184 ng/L (0-12) H* 02/03/24 17:16 NT-Pro-B Natriuret Pep 971 pg/mL (0-125) H 02/03/24 11:27 Total Protein 6.3 g/dL (6.6-8.7) L 02/04/24 02:50 Albumin 3.6 g/dL (3.5-5.2) 02/04/24 02:50 Globulin 2.7 g/dL (1.3-4.6) 02/04/24 02:50 Lipase 26 U/L (13-60) 02/03/24 11:27 Urine Color Dark yellow (Yellow) A 02/03/24 12:18 Urine Appearance Clear (CLEAR) 02/03/24 12:18 Urine pH 6.0 (5-7) 02/03/24 12:18 Ur Specific [place] 1.042 (1.005-1.030) H 02/03/24 12:18 Urine Protein Negative (Negative) 02/03/24 12:18 Urine Glucose (UA) Trace (Normal) H 02/03/24 12:18 Urine Ketones Negative (Negative) 02/03/24 12:18 Urine Blood Negative (Negative) 02/03/24 12:18 Urine Nitrate Negative (Negative) 02/03/24 12:18 Urine Bilirubin Negative (Negative) 02/03/24 12:18 Urine Urobilinogen 2.0 mg/dL (Negative) H 02/03/24 12:18 Ur Leukocyte Esterase Negative (Negative) 02/03/24 12:18 Urine RBC 0-2 /hpf (0-2) 02/03/24 12:18 Urine WBC 0-5 /hpf (0-5) 02/03/24 12:18 Ur Squamous Epith Cells 0-5 /hpf (0-5) 02/03/24 12:18 Amorphous Sediment Not Reportable 02/03/24 12:18 Urine Bacteria None seen /hpf (NONE) 02/03/24 12:18 Hyaline Casts 1.21 /lpf 02/03/24 12:18 Adenovirus (PCR) Not detected (NOT DETECT) 02/03/24 19:30 C. pneumoniae DNA (PCR) Not detected (NOT DETECT) 02/03/24 19:30 Coronavirus (PCR) Negative (Negative) 02/03/24 13:05 Coronavirus 229E (PCR) Not detected (NOT DETECT) 02/03/24 19:30 Hepatitis A IgM Ab Non-reactive (Nonreactive) 02/03/24 11:27 Hep Bs Antigen Non-reactive (Nonreactive) 02/03/24 11:27 Hep B Core IgM Ab Non-reactive (Nonreactive) 02/03/24 11:27 Hepatitis C Antibody Non-reactive (Nonreactive) 02/03/24 11:27 Human Metapneumovir PCR Not detected (NOT DETECT) 02/03/24 19:30 Influenza A (H1) PCR Not detected (NOT DETECT) 02/03/24 19:30 Influenza A (PCR) Negative (Negative) 02/03/24 13:05 Influ A (H1/09) PCR Not detected (NOT DETECT) 02/03/24 19:30 Influenza A (H3) PCR Not detected (NOT DETECT) 02/03/24 19:30 Influenza Type A (PCR) Not detected (NOT DETECT) 02/03/24 19:30 Influenza Type B (PCR) Not detected (NOT DETECT) 02/03/24 19:30 M. pneumoniae (PCR) Not detected (NOT DETECT) 02/03/24 19:30 Parainfluenza 1 (PCR) Not detected (NOT DETECT) 02/03/24 19:30 Parainfluenza 2 (PCR) Not detected (NOT DETECT) 02/03/24 19:30 Parainfluenza 3 (PCR) Not detected (NOT DETECT) 02/03/24 19:30 Parainfluenza 4 (PCR) Not detected (NOT DETECT) 02/03/24 19:30 RSV (PCR) Negative (Negative) 02/03/24 13:05 RSV Type A (PCR) Not detected (NOT DETECT) 02/03/24 19:30 RSV Type B (PCR) Not detected (NOT DETECT) 02/03/24 19:30 Entero/Rhino (PCR) Not detected (NOT DETECT) 02/03/24 19:30 SARS-CoV-2 (PCR) Not detected (NOT DETECT) 02/03/24 19:30 Micro: Microbiology 02/03/24 13:25 Blood Culture - Preliminary Blood SPECIMEN COLLECTED 02/03/24 13:22 Blood Culture - Preliminary Blood SPECIMEN COLLECTED A&P Assessment and plan (1) Elevated troponin: Patient's troponin is now trending down. Most likely this is from the recent myocardial infarction. The 6 hr delta troponin was high however the patient remains totally pain-free with no chest symptoms whatsoever. Apparently had severe chest pain with the OH during his last admission. The echocardiogram revealed some improvement of the LV ejection fraction. His EKG shows no new changes. I discussed this with Dr. Mensah. It was thought to be appropriate to continue the current treatment. So if he remains stable, may be discharged home for myocardial standpoint (2) Myocardial infarct, old: Patient has had a recent STEMI. Should continue beta-crys and dual antiplatelet therapy as previously prescribed. The EKG shows normal sinus rhythm with a diffuse nonspecific T wave changes. Compared to the EKG from 3 days ago, there is no significant change. (3) Ischemic cardiomyopathy: LV ejection fraction has slightly improved as mentioned above. At this point, the patient may continue on the current medications. 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 Whether he is developing any new lesions in the collateral vessels or not should be a consideration. 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 Possibility of progression of the occlusive disease also should be a consideration. Apparently this patient was evaluated by vascular surgery at the [facility] in [place]. He was deemed not to be a candidate for any intervention at that point. So it may be appropriate to continue on the current treatment at this time. Plan The other problems are Mild hypokalemia, History of smoking abuse/drug abuse-patient has decided not to go back to this habit. He seems to have a desire to live right If the patient continues remain stable, may be discharged home from a cardiac standpoint. Discussed with Dr. Mooney Please make an appointment to be seen at [facility] , by the nurse practitioner Appoint with Dr. Mensah in 1 month Attestations Medical Necessity Statement*: Possible discharge home today Coding Level of Care Code 64264 Diagnoses Elevated troponin R79.89 Myocardial infarct, old I25.2 Ischemic cardiomyopathy I25.5 Abdominal aorta thrombosis I74.09 Peripheral artery occlusion I77.9
[2024-02-04] MEDS: metoprolol tartrate 25 mg Tablet PO ×2 (08:59→17:23)
[2024-02-04] MEDS: clopidogrel 75 mg Tablet PO (08:59)
[2024-02-04] MEDS: aspirin 81 mg EC Tablet PO (09:00)
[2024-02-04] MEDS: atorvastatin 40 mg Tablet PO (09:00)
--- NOTE | 2024-02-04 09:13 | PC.CHAP ---
Pastoral Care Encounter/Spiritual Assessment Type of Contact [] Declined high school librarian visit [] Patient/Family/Request visit [] Outpatient visit [] Follow-up visit [] Physician referral [] Code/Alert [] Routine visit [] Staff referral [] Actively dying [x] Patient sleeping [] Family support [] [] Out of room [] Palliative care [] [] Receiving care in room [] Pre-surgical visit [] Trauma [] Long length of stay [] ICU visit [] Other: Relational/Emotional Strength [] Patient feels connected with others/family/visitors/staff [] Distress [] Loneliness/isolation [] Abandonment Spirituality of Patient [] Person of Arline [] Attends Jehov[employer] Witness of their Arline [] Believes in Prayer [] Reads Bible or Congregation materials [] There are Spiritual issues to be addressed [employer] Interventions [] Prayer [] Active listening [] Non-anxious presence [] Spiritual/emotional support [] Crisis/trauma care [] Spiritual counseling [] Bereavement support [] Provided bereavement packet [] Provided Bible/devotional materials [] Provided toy/stuffed animal, coloring book to patient or family member [] Provided Communion [] Anointing/[place] [] Salvation [] Completed spiritual assessment [] Other: Impact on Illness or Injury [] Angry [] Fearful [] Anxious [] Often cries [] Exhaustion [] Unable to work [] Unable to attend sikh [] Unable to walk/stand [] Unable to read [] Unable to drive [] Unable to eat/drink [] Unable to sleep [] Unable to be with family [] Patient intubated [] Other: Summary Time spent with patient
--- NOTE | 2024-02-04 13:05 | PC.NURSE ---
Provider is updated on patient's last two blood pressures of 87/52 and 90/42. She is asymptomatic. Provider said that it is okay and to update him if any other changes.
--- NOTE | 2024-02-04 18:13 | P.DS_ITS ---
Discharge Providers Date of Admission: 02/03/24 17:51 Date of Discharge: February 04, 2024 Attending Provider at Admission: Parth Mooney Attending Provider at Discharge: Parth Mooney Primary Care Provider: ALYSHA Tomas Diagnoses at Discharge Discharge Diagnosis (1) Elevated troponin: Status: Acute (2) Myocardial infarct, old: Status: Acute (3) Ischemic cardiomyopathy: Status: Acute (4) Abdominal aorta thrombosis: Status: Acute (5) Peripheral artery occlusion: Status: Acute Reason for Visit Reason for Visit: ABD/Back Pain Brief History: Pleasant 63-year-old gentleman with CAD, status post PCI with stenting on Friday with ischemic cardiomyopathy, EF 40-45%, with peripheral artery disease, chronically occluded infrarenal aorta, smoking, substance use disorder, HTN, HLD, COPD, presented to ER due to lower abdominal pain. He reports having had some cough. He also had an episode of back pain several days ago radiating down to his lower back and up into his neck although this has resolved. He does report cramping abdominal pain over the last several days. No bowel movement. In ER he is found to have troponin of 3333. CT chest abdomen pelvis with contrast without evidence of PE, bilateral groundglass infiltrates perihilar upper lobe distribution, possibly pulmonary edema versus viral pneumonia. Incidentally also noted complete occlusion of abdominal aorta at the level of renal arteries unchanged from 2021. Diffuse fatty infiltration of the liver. He states that he previously discussed aortic occlusion with vascular surgery but that surgery was deemed to be too high risk. Hospital Course Hospital Course He was hospitalized on cardiac stepdown unit. Monitor on telemetry with risk arrhythmia, with no arrhythmia noted. Had no recurrence of pain. Abdominal cramping/pain has subsided and improved. He was able to tolerate oral diet. Passing flatus. No eructation, Draves or vomiting. No signs of obstruction. Was noted to have mild increase on 6-hour troponin. Was assessed by cardiology. Assessed by echocardiogram which showed mild improvement in ejection fraction. Remained chest pain-free. Noted mild improvement in transaminitis. Without peripheral edema. Maintaining oxygenation. Overall feeling better requested to be discharged home. As per discussion with cardiology he should continue dual antiplatelet therapy at current time, statin, beta-crys, follow-up in cardiology office. Additionally as per discussion of claudication of lower extremities with ambulation, with Leriche syndrome, severe peripheral arterial disease which has not been found amenable to intervention by vascular surgery, prior successful intervention with stenting, dependent on collaterals per discussion with cardiology. As per discussion with cardiology and patient they may consider additional interventions, possibly cilostazol on follow-up in office. Lasix is provided as needed in case of fluid overload. Please follow-up for resolution of groundglass opacities on lung imaging. Please reassess for continued improvement. Reassess liver parameters. Continue to optimize cardiovascular risk factors. He is quit smoking and any substance use. Please continue to revisit and support. He declined nicotine replacement. Please revisit in case additional support becomes necessary to maintain abstinence. Please see CT report below for additional incidental findings. Physical Exam Const: COMMON NORMALS: patient oriented x3 and alert GENERAL APPEARANCE: cooperative ORIENTATION/CONSCIOUSNESS: Yes awake HENMT: COMMON NORMALS: oropharynx normal Neck/C-Spine: COMMON NORMALS: no JVD Resp: COMMON NORMALS: normal respiratory effort and clear to auscultation bilaterally AUSCULTATION: clear to auscultation bilaterally Cardio: COMMON NORMALS: no JVD, regular rhythm, S1 normal heart sound present, S2 normal heart sound present and No murmurs present (Cardio) RHYTHM: regular rhythm HEART SOUNDS: S1 normal heart sound present and S2 normal heart sound present GI: COMMON NORMALS: Normal to inspection, nondistended, normoactive bowel sounds present, Soft to palpation and non-tender PALPATION: Yes Soft to palpation Extremity: COMMON NORMALS: no joint enlargement and no pedal edema Neuro: COMMON NORMALS: patient oriented x3 and moves all extremities SENSORIUM/ORIENTATION: Yes alert Skin: COMMON NORMALS: no rashes or lesions noted GENERAL SKIN EXAM: no rashes or lesions noted Discharge Data Studies Completed and Pending Completed Studies During Hospitalization Category Date Time Status CT angio chest w abd pel w con Stat Cat Scan 02/03/24 11:15 Completed XR chest 1V portable [id number] Stat Exams 02/03/24 11:04 Completed CV. echo limited [id number] Routine Ultrasound 02/03/24 17:25 Completed Pending at discharge Category Date Time Status Blood Culture Stat Lab 02/03/24 13:25 Results Complete Blood Count w/Auto AM LABS Lab 02/05/24 04:00 Ordered Complete Blood Count w/Auto AM LABS Lab 02/06/24 04:00 Ordered Comprehensive Metabolic Panel AM LABS Lab 02/05/24 04:00 Ordered Comprehensive Metabolic Panel AM LABS Lab 02/06/24 04:00 Ordered Radiology Impressions Chest X-Ray 02/03/24 11:04 IMPRESSION: No acute chest abnormality. Chest/Abdomen/Pelvis CT 02/03/24 11:15 IMPRESSION: 1. No evidence of pulmonary embolus. 2. Bilateral groundglass infiltrates in a perihilar and upper lobe distribution can be seen with pulmonary edema and/or viral pneumonia.. 3. 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 Chronic occlusion of the iliac stents unchanged. 4. Diffuse fatty infiltration of the liver. Laboratory Results WBC 7.43 10^3/uL (3.29-11.43) 02/04/24 02:50 RBC 4.21 10^6/uL (3.85-5.65) 02/04/24 02:50 Hgb 12.70 g/dL (11.27-16.99) 02/04/24 02:50 Hct 38.0 % (37-53) 02/04/24 02:50 MCV 90.3 fl (82-101) 02/04/24 02:50 MCH 30.2 pg (27-33) 02/04/24 02:50 MCHC 33.4 g/dL (30-55) 02/04/24 02:50 RDW 12.4 % (12.1-15.1) 02/04/24 02:50 Plt Count 162 10^3/cmm (157-399) 02/04/24 02:50 MPV 11.1 fL (7.4-10.4) H 02/04/24 02:50 Neut % (Auto) 66.4 % 02/04/24 02:50 Lymph % (Auto) 21.1 % 02/04/24 02:50 Christian % (Auto) 8.6 % 02/04/24 02:50 Eos % (Auto) 3.1 % 02/04/24 02:50 Baso % (Auto) 0.5 % 02/04/24 02:50 Neut # (Auto) 4.93 10^3/uL (1.8-7.7) 02/04/24 02:50 Lymph # (Auto) 1.6 10^3/uL (0.8-4.8) 02/04/24 02:50 Christian # (Auto) 0.6 10^3/uL (0.2-0.9) 02/04/24 02:50 Eos # (Auto) 0.2 10^3/uL (0.0-0.8) 02/04/24 02:50 Baso # (Auto) 0.0 10^3/uL (0.0-0.1) 02/04/24 02:50 Nucleated RBC % (auto) 0 % 02/04/24 02:50 Nucleated RBCs # 0.0 /100WBC 02/04/24 02:50 PT 14.10 SECONDS (12.1-14.9) 02/03/24 11:27 INR 1.06 (0.8-1.2) 02/03/24 11:27 Sodium 136 mmol/L (136-145) 02/04/24 02:50 Potassium 4.2 mmol/L (3.5-5.1) 02/04/24 02:50 Chloride 101 mmol/L (98-107) 02/04/24 02:50 Carbon Dioxide 22 mmol/L (22-29) 02/04/24 02:50 Anion Gap 17.2 (5-19) 02/04/24 02:50 BUN 14 mg/dL (8-23) 02/04/24 02:50 Creatinine 1.1 mg/dL (0.7-1.2) 02/04/24 02:50 GFR Calculation 67.4 mL/min (90-130) L 02/04/24 02:50 Glucose 113 mg/dL (65-115) 02/04/24 02:50 Calculated Osmolality 283 mOsm/kg (285-295) L 02/04/24 02:50 Lactic Acid 1.0 mmol/L (0.5-2.2) 02/03/24 14:37 Calcium 8.3 mg/dL (8.5-10.5) L 02/04/24 02:50 Magnesium 1.9 mg/dL (1.7-2.3) 02/04/24 02:50 Total Bilirubin 0.7 mg/dL (0.15-1.2) 02/04/24 02:50 AST 45 U/L (0-40) H 02/04/24 02:50 ALT 66 U/L (0-41) H 02/04/24 02:50 Alkaline Phosphatase 64 U/L (40-130) 02/04/24 02:50 Troponin T Baseline 3333 ng/L (0-15) H* 02/03/24 11:27 Troponin T 120 Minute 3318 ng/L (0-15) H 02/03/24 13:22 Delta Troponin T -15 ABS# (0-10) L 02/03/24 13:22 Troponin T Hi Sens 6Hr 3517 ng/L (0-15) H 02/03/24 17:16 Troponin T Hi Sens 6Hr Delta 184 ng/L (0-12) H* 02/03/24 17:16 NT-Pro-B Natriuret Pep 971 pg/mL (0-125) H 02/03/24 11:27 Total Protein 6.3 g/dL (6.6-8.7) L 02/04/24 02:50 Albumin 3.6 g/dL (3.5-5.2) 02/04/24 02:50 Globulin 2.7 g/dL (1.3-4.6) 02/04/24 02:50 Lipase 26 U/L (13-60) 02/03/24 11:27 Urine Color Dark yellow (Yellow) A 02/03/24 12:18 Urine Appearance Clear (CLEAR) 02/03/24 12:18 Urine pH 6.0 (5-7) 02/03/24 12:18 Ur Specific [place] 1.042 (1.005-1.030) H 02/03/24 12:18 Urine Protein Negative (Negative) 02/03/24 12:18 Urine Glucose (UA) Trace (Normal) H 02/03/24 12:18 Urine Ketones Negative (Negative) 02/03/24 12:18 Urine Blood Negative (Negative) 02/03/24 12:18 Urine Nitrate Negative (Negative) 02/03/24 12:18 Urine Bilirubin Negative (Negative) 02/03/24 12:18 Urine Urobilinogen 2.0 mg/dL (Negative) H 02/03/24 12:18 Ur Leukocyte Esterase Negative (Negative) 02/03/24 12:18 Urine RBC 0-2 /hpf (0-2) 02/03/24 12:18 Urine WBC 0-5 /hpf (0-5) 02/03/24 12:18 Ur Squamous Epith Cells 0-5 /hpf (0-5) 02/03/24 12:18 Amorphous Sediment Not Reportable 02/03/24 12:18 Urine Bacteria None seen /hpf (NONE) 02/03/24 12:18 Hyaline Casts 1.21 /lpf 02/03/24 12:18 Adenovirus (PCR) Not detected (NOT DETECT) 02/03/24 19:30 C. pneumoniae DNA (PCR) Not detected (NOT DETECT) 02/03/24 19:30 Coronavirus (PCR) Negative (Negative) 02/03/24 13:05 Coronavirus 229E (PCR) Not detected (NOT DETECT) 02/03/24 19:30 Hepatitis A IgM Ab Non-reactive (Nonreactive) 02/03/24 11:27 Hep Bs Antigen Non-reactive (Nonreactive) 02/03/24 11:27 Hep B Core IgM Ab Non-reactive (Nonreactive) 02/03/24 11:27 Hepatitis C Antibody Non-reactive (Nonreactive) 02/03/24 11:27 Human Metapneumovir PCR Not detected (NOT DETECT) 02/03/24 19:30 Influenza A (H1) PCR Not detected (NOT DETECT) 02/03/24 19:30 Influenza A (PCR) Negative (Negative) 02/03/24 13:05 Influ A (H1/09) PCR Not detected (NOT DETECT) 02/03/24 19:30 Influenza A (H3) PCR Not detected (NOT DETECT) 02/03/24 19:30 Influenza Type A (PCR) Not detected (NOT DETECT) 02/03/24 19:30 Influenza Type B (PCR) Not detected (NOT DETECT) 02/03/24 19:30 M. pneumoniae (PCR) Not detected (NOT DETECT) 02/03/24 19:30 Parainfluenza 1 (PCR) Not detected (NOT DETECT) 02/03/24 19:30 Parainfluenza 2 (PCR) Not detected (NOT DETECT) 02/03/24 19:30 Parainfluenza 3 (PCR) Not detected (NOT DETECT) 02/03/24 19:30 Parainfluenza 4 (PCR) Not detected (NOT DETECT) 02/03/24 19:30 RSV (PCR) Negative (Negative) 02/03/24 13:05 RSV Type A (PCR) Not detected (NOT DETECT) 02/03/24 19:30 RSV Type B (PCR) Not detected (NOT DETECT) 02/03/24 19:30 Entero/Rhino (PCR) Not detected (NOT DETECT) 02/03/24 19:30 SARS-CoV-2 (PCR) Not detected (NOT DETECT) 02/03/24 19:30 Vitals Last Vital Signs Temp 98.0 F 02/04/24 16:00 Pulse 71 02/04/24 16:00 Resp 20 H 02/04/24 16:00 BP 128/71 02/04/24 16:00 Pulse Ox 99 02/04/24 16:00 O2 Del Method Room Air 02/04/24 16:00 O2 Flow Rate 2 02/03/24 18:23 Discharge Plan Discharge Patient Disposition: Home Condition: Stable Prescriptions: New furosemide 40 mg tablet 40 mg PO DAILY PRN (Reason: edema) Qty: 90 0RF Rx Instructions: For edema or weight gain >3lbs in 2d Continued clopidogrel 75 mg Tablet 75 mg PO DAILY Qty: 90 3RF aspirin 81 mg Tablet,Delayed Release (Dr/Ec) 81 mg PO DAILY Qty: 90 3RF atorvastatin 40 mg tablet 40 mg PO DAILY Qty: 90 3RF metoprolol tartrate 25 mg tablet 25 mg PO BID Qty: 120 3RF Discharge Orders: Discharge Order (Routine); Ordered 02/04/24 Ordered By: Parth Mooney Referrals: Malu Conde SPOT WORKER [Nurse Practitioner] - 1 week (We have notified your physician's clinic of the need for a follow-up appointment to be scheduled. If you have not heard from them within the next 2 business days, please call them directly. ) Angelita Goss FNP [Primary Care Provider] - 4-7 days (Please call for an follow- up appointment in 4 to 7 days. Thank you! ) Shaka Mensah M.D [Physician] - 1 month (We have notified your physician's clinic of the need for a follow-up appointment to be scheduled. If you have not heard from them within the next 2 business days, please call them directly. ) Jayson Casillas MD [Physician] - 04/05/24 1:15 pm Discharge Diet: Advance as tolerated and Cardiac Patient Instructions: Furosemide (By mouth) (Lasix), Pulmonary Edema (DC), Peripheral Artery Disease (DC), Thrombolysis (DC), Opioid Safety Activity Restrictions/Additional Instructions: Please follow-up with your primary provider for reassessment of congestive heart failure, for reassessment for resolution of groundglass opacity in the lungs. Continue her medications, as discussed please do not stop aspirin or Plavix unless directed to do so by your doctor due to risk of stent thrombosis and massive heart attack. Avoid injury due to increased risk of bleeding with aspirin and Plavix. Please follow-up with cardiology for reassessment. Please discuss again with cardiology regarding peripheral artery disease and symptoms of leg pain, weakness with walking due to poor blood supply. Cardiology will further consider when it may be an option to possibly add cilostazol to your medication regimen, versus other interventions for peripheral artery disease. He has discussed seek medical attention immediately in case of any severe abdominal pain, cramping, vomiting, lack of stools or gas, or inability to eat or drink. Seek medical attention if she has any worsening or new concerning symptoms. Discharge Attestations Time Spent in Discharge Care*: greater than 30 min Quality Metrics Clinical Quality Measures [ No reported AMI, CVA or VTE this stay] Coding Level of Care Code 85997 Total time (in minutes) for Discharge: 45 Diagnoses Elevated troponin R79.89 Myocardial infarct, old I25.2 Ischemic cardiomyopathy I25.5 Abdominal aorta thrombosis I74.09 Peripheral artery occlusion I77.9
== END 2024-02-04 19:00 | disposition home or self-care (01) ==
LOC: ER 16:59 → ER IP 17:52 → CSU 18:41
PROVIDERS: Admitting Provider Internal Medicine; Emergency Provider Emergency Medicine; PCP Nurse Practitioner Family; Visit Provider Internal Medicine
DX: I25.5 Ischemic cardiomyopathy (principal); I74.09 Other arterial embolism and thrombosis of abdominal aorta; I77.9 Disorder of arteries and arterioles, unspecified; I25.2 Old myocardial infarction; R79.89 Other specified abnormal findings of blood chemistry; Z95.5 Presence of coronary angioplasty implant and graft; I10 Essential (primary) hypertension; E78.5 Hyperlipidemia, unspecified; Z79.82 Long term (current) use of aspirin; Z98.890 Other specified postprocedural states
CPT/HCPCS: 0241U; 36415; 71045; 71275; 74177; 80053; 80074; 81001; 83605; 83690; 83735; 83880; 84484; 85025; 85610; 87040; 87486; 87581; 87633; 93005; 93308; 94640; 96365; 96372; 96375; 96376; 99285; A9270; G0378; J0456; J0696; J1650; J1940; J2270; J2405; J7050

== ENCOUNTER 2024-03-20 05:44 | Emergency (ER) | payer MEDICARE, MEDICAID, SELFPAY ==
[2024-03-20 05:46] VITALS: BP 158/98; PULSE 114; RESP 18; TEMP 36.9; O2SAT 99; BMI 28.2
--- NOTE | 2024-03-20 05:50 | ECG_ITS ---
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: : 1960 Requested By: Sean Francis Order Number: [id number] Reading MD: ROSIE EPPERSON Measurements Intervals [place] Rate: 108 P: 42 NH: 148 QRS: 90 QRSD: 81 T: -8 QT: 321 QTc: 431 Interpretive Statements SINUS TACHYCARDIA WITH OCCASIONAL VENTRICULAR PREMATURE COMPLEXES NONSPECIFIC T-WAVE ABNORMALITY Compared to ECG 02/03/2024 18:36:52 Ventricular premature complex(es) now present Sinus rhythm no longer present Possible ischemia no longer present T-wave abnormality still present Electronically Signed On 03-22-2024 23:17:38 REPRESENTATIVE GOVERNMENT RELATIONS by ROSIE EPPERSON [email or web address]
--- NOTE | 2024-03-20 05:50 | XRR_ITS ---
PROCEDURE INFORMATION: Exam: XR Chest Exam date and time: 03/20/2024 5:53 AM Age: 63 years old Clinical indication: Chest pressure; Prior surgery; Surgery date: 6+ months; Surgery type: Coronary stents; Patient HX: C/O chest pain TECHNIQUE: Imaging protocol: Radiologic exam of the chest. Views: 1 view. COMPARISON: CT angio chest w abd pel w con 02/03/2024 11:54 AM FINDINGS: Lungs: Unremarkable. No consolidation. Pleural spaces: Unremarkable. No pleural effusion. No pneumothorax. Heart/Mediastinum: Unremarkable. No cardiomegaly. Bones/joints: Unremarkable. XR/XR chest 1V portable [id number] IMPRESSION: No acute findings.
--- NOTE | 2024-03-20 06:10 | ED_ITS ---
HPI - Chest Pain 2 General: Chief Complaint: Chest Pain Stated Complaint: chest pain Time Seen by Provider: 03/20/24 05:50 History of Present Illness: 63-year-old male presents emergency room in custody of [facility] department complaining of chest pain. Approximately 6 weeks ago patient had a STEMI and had a stent placed. At that time patient was found to have occlusion of previous RCA stents. Stents were reopened with successful revascularization using balloon angioplasty. Patient had not been taking his medications. Tonight he got into an altercation with the police he got very upset and angry and had an episode of chest pain that lasted approximately an hour and 45 minutes but time he arrived here it had resolved. He did not take anything to alleviate the discomfort. He did have pain radiating to his back into his jaw. He is also complaining of rapid heart rate and palpitations. All of this has resolved and he is completely symptom-free at this time. He does tell me he has been taking his medications regularly he has not taken his regular morning medicines today yet. Associated symptoms: Deny abdominal pain, dyspnea or fever(s) Related Data Previous Rx's Medication Instructions Recorded aspirin 81 mg tablet,delayed 81 mg PO DAILY #90 tabs 02/01/24 release atorvastatin 40 mg tablet 40 mg PO DAILY #90 tabs 02/01/24 clopidogrel 75 mg tablet 75 mg PO DAILY #90 tabs 02/01/24 metoprolol tartrate 25 mg tablet 25 mg PO BID #120 tabs 02/01/24 furosemide 40 mg tablet 40 mg PO DAILY PRN edema #90 tabs 02/04/24 Allergies Allergy/AdvReac Type Severity Reaction Status Date / Time No Known Allergies Allergy Verified 11/12/23 14:52 Review of Systems 2 Const: Denies: fever(s) or chills Card: Reports: chest pain; Denies: edema or swelling of feet/ankles Resp: Denies: dyspnea GI: Denies: abdominal pain : Denies: dysuria, urinary frequency or urinary urgency Musc: Denies: neck pain or back pain Skin/Breast: Denies: rash PFSH ED 2 PFSH: Medical History STEMI (ST elevation myocardial infarction) Lung mass Hemorrhoids Opioid contract exists Leriche syndrome COPD (chronic obstructive pulmonary disease) CAD (coronary atherosclerotic disease) PAD (peripheral artery disease) Dyslipidemia HTN (hypertension) Bipolar disorder 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 Myocardial infarct, old Ischemic cardiomyopathy Tobacco abuse Chest pain, atypical Surgical History S/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) Family History Father Cancer Social History Smoking and tobacco/nicotine status: unknown if used tobacco/nicotine Alcohol intake: never Substance/Drug Use: current Current gender identity: Male Physical Exam 2 Const: COMMON NORMALS: no acute distress GENERAL APPEARANCE: cooperative and comfortable ORIENTATION/CONSCIOUSNESS: Yes awake, Yes oriented to person, Yes oriented to place and Yes oriented to time HENMT: COMMON NORMALS: normocephalic, atraumatic and hearing grossly normal bilaterally HEAD & SCALP: normocephalic and atraumatic Resp: COMMON NORMALS: normal respiratory effort, No retractions, No use of accessory muscles and clear to auscultation bilaterally AUSCULTATION: clear to auscultation bilaterally Cardio: COMMON NORMALS: regular rate, regular rhythm and No murmurs present (Cardio) RATE: regular rate RHYTHM: regular rhythm GI: COMMON NORMALS: Soft to palpation and No hepatosplenomegaly present A USCULTATION: Yes normoactive bowel sounds PALPATION: Yes Soft to palpation, No Tenderness to palpation present (GI), No Guarding due to palpation present (GI) and Yes No hepatosplenomegaly present Extremity: COMMON NORMALS: normal to inspection, capillary refill normal, no clubbing, cyanosis or edema, no calf tenderness and no pedal edema Neuro: SENSORIUM/ORIENTATION: Yes oriented to person, Yes oriented to place and Yes oriented to time Skin: COMMON NORMALS: no rashes or lesions noted GENERAL SKIN EXAM: no rashes or lesions noted Course 2 Vital Signs: Vital signs: Vital Signs Temperature 98.4 F 03/20/24 05:46 Pulse Rate 73 03/20/24 09:25 Respiratory Rate 22 H 03/20/24 09:25 Blood Pressure 126/62 03/20/24 09:25 Pulse Oximetry 98 03/20/24 09:25 Oxygen Delivery Me thod Room Air 03/20/24 08:39 MDM - Chest Pain Medical Decision Making Cardiac enzymes and EKG did not show any acute fracture patient has had no further pain he related to the stress that he had with the interaction of the police. He was given his usual morning medications while here. He is discharged home follow-up with his primary care doctor Medical Records I reviewed the patient's medical records. Lab Data I reviewed the patient's lab results. 03/20/24 06:12 03/20/24 06:12 Radiology Impressions Chest X-Ray 03/20/24 05:50 IMPRESSION: No acute findings. Laboratory Results WBC 7.84 10^3/uL (3.29-11.43) 03/20/24 06:12 RBC 5.02 10^6/uL (3.85-5.65) 03/20/24 06:12 Hgb 15.20 g/dL (11.27-16.99) 03/20/24 06:12 Hct 46.3 % (37-53) 03/20/24 06:12 MCV 92.2 fl (82-101) 03/20/24 06:12 MCH 30.3 pg (27-33) 03/20/24 06:12 MCHC 32.8 g/dL (30-55) 03/20/24 06:12 RDW 13.2 % (12.1-15.1) 03/20/24 06:12 Plt Count 168 10^3/cmm (157-399) 03/20/24 06:12 MPV 9.2 fL (7.4-10.4) 03/20/24 06:12 Neut % (Auto) 64.8 % 03/20/24 06:12 Lymph % (Auto) 23.6 % 03/20/24 06:12 [place] % (Auto) 7.3 % 03/20/24 06:12 Eos % (Auto) 3.1 % 03/20/24 06:12 Baso % (Auto) 0.8 % 03/20/24 06:12 Neut # (Auto) 5.09 10^3/uL (1.8-7.7) 03/20/24 06:12 Lymph # (Auto) 1.9 10^3/uL (0.8-4.8) 03/20/24 06:12 [place] # (Auto) 0.6 10^3/uL (0.2-0.9) 03/20/24 06:12 Eos # (Auto) 0.2 10^3/uL (0.0-0.8) 03/20/24 06:12 Baso # (Auto) 0.1 10^3/uL (0.0-0.1) 03/20/24 06:12 Nucleated RBC % (auto) 0 % 03/20/24 06:12 Nucleated RBCs # 0.0 /100WBC 03/20/24 06:12 Sodium 140 mmol/L (136-145) 03/20/24 06:12 Potassium 3.9 mmol/L (3.5-5.1) 03/20/24 06:12 Chloride 102 mmol/L (98-107) 03/20/24 06:12 Carbon Dioxide 24 mmol/L (22-29) 03/20/24 06:12 Anion Gap 17.9 (5-19) 03/20/24 06:12 BUN 16 mg/dL (8-23) 03/20/24 06:12 Creatinine 1.2 mg/dL (0.7-1.2) 03/20/24 06:12 GFR Calculation 61.0 mL/min (90-130) L 03/20/24 06:12 Glucose 155 mg/dL (65-115) H 03/20/24 06:12 Calculated Osmolality 294 mOsm/kg (285-295) 03/20/24 06:12 Calcium 9.6 mg/dL (8.5-10.5) 03/20/24 06:12 Total Bilirubin 0.5 mg/dL (0.15-1.2) 03/20/24 06:12 AST 30 U/L (0-40) 03/20/24 06:12 ALT 66 U/L (0-41) H 03/20/24 06:12 Alkaline Phosphatase 99 U/L (40-130) 03/20/24 06:12 Troponin T Baseline 26 ng/L (0-15) H 03/20/24 06:12 Troponin T 120 Minute 27.37 ng/L (0-15) H 03/20/24 08:19 Delta Troponin T 1.37 ABS# (0-10) 03/20/24 08:19 Total Protein 7.0 g/dL (6.6-8.7) 03/20/24 06:12 Albumin 4.7 g/dL (3.5-5.2) 03/20/24 06:12 Globulin 2.3 g/dL (1.3-4.6) 03/20/24 06:12 All radiology interpretation(s) finalized by discharge Discharge Plan Discharge Patient Disposition: Home Clinical Impression: Chest pain, Ischemic cardiomyopathy, Myocardial infarct, old CAD (coronary atherosclerotic disease) Qualifiers: Coronary Disease-Associated Artery/Lesion type: saxman artery [place] vs. transplanted heart: saxman heart Associated angina: without angina Qualified Code(s): I25.10 - Atherosclerotic heart disease of saxman coronary artery without angina pectoris Condition: Stable Prescriptions: No Action clopidogrel 75 mg Tablet 75 mg PO DAILY Qty: 90 3RF aspirin 81 mg Tablet,Delayed Release (Dr/Ec) 81 mg PO DAILY Qty: 90 3RF atorvastatin 40 mg tablet 40 mg PO DAILY Qty: 90 3RF metoprolol tartrate 25 mg tablet 25 mg PO BID Qty: 120 3RF furosemide 40 mg tablet 40 mg PO DAILY PRN (Reason: edema) Qty: 90 0RF Rx Instructions: For edema or weight gain >3lbs in 2d Discharge Orders: Discharge ED (Routine); Ordered 03/20/24 Ordered By: Michael Mcrae Referrals: Angelita Goss FNP [Primary Care Provider] - Patient Instructions: Opioid Safety, Pain Management Activity Restrictions/Additional Instructions: Thank you for choosing [facility] for your healthcare needs today. It is very important that you follow up as instructed or that you return to the Emergency Department should you have concerns or if your condition changes or worsens in any way. You were seen in the emergency room with complaints of chest discomfort. Your cardiac enzymes were negative your EKG did not show any new acute changes. Recommend you follow-up with your primary care doctor as needed continue all of your currently prescribed medications. You were given doses of your regular medications this morning while you were in the emergency room. Coding Level of Care Code ED Obstetrician for Katarzyna Ruth
[2024-03-20 06:22] LABS: Basophils # 0.1 10^3/uL (0.0-0.1); Basophils % 0.8 %; Eosinophils # 0.2 10^3/uL (0.0-0.8); Eosinophils % 3.1 %; Hematocrit 46.3 % (37-53); Lymphocytes # 1.9 10^3/uL (0.8-4.8); Lymphocytes % 23.6 %; Mean Corpuscular HGB Conc 32.8 g/dL (30-55); Mean Corpuscular Hemoglobin 30.3 pg (27-33); Mean Corpuscular Volume 92.2 fl (82-101); Mean Platelet Volume 9.2 fL (7.4-10.4); Monocytes # 0.6 10^3/uL (0.2-0.9); Monocytes % 7.3 %; Neutrophils # 5.09 10^3/uL (1.8-7.7); Neutrophils % 64.8 %; Nucleated Red Blood Cells % 0 %; Platelet Count 168 10^3/cmm (157-399); Red Blood Count 5.02 10^6/uL (3.85-5.65); Red Cell Distribution Width 13.2 % (12.1-15.1); White Blood Count 7.84 10^3/uL (3.29-11.43)
[2024-03-20 06:45] LABS: Alanine Aminotransferase 66 U/L (0-41); Albumin Level 4.7 g/dL (3.5-5.2); Alkaline Phosphatase 99 U/L (40-130); Anion Gap 17.9 (5-19); Aspartate Amino Transferase 30 U/L (0-40); Blood Urea Nitrogen 16 mg/dL (8-23); Calcium 9.6 mg/dL (8.5-10.5); Carbon Dioxide 24 mmol/L (22-29); Chloride 102 mmol/L (98-107); Creatinine Clr Calc Pharmacy 61.6019; Globulin 2.3 g/dL (1.3-4.6); Glucose 155 mg/dL (65-115); Osmolality Calculated 294 mOsm/kg (285-295); Potassium 3.9 mmol/L (3.5-5.1); Sodium 140 mmol/L (136-145); Total Bilirubin 0.5 mg/dL (0.15-1.2); Troponin(5th) Baseline 26 ng/L (0-15)
[2024-03-20] MEDS: atorvastatin 40 mg Tablet PO (06:45)
[2024-03-20] MEDS: metoprolol tartrate 25 mg Tablet PO (06:45)
[2024-03-20] MEDS: FUROsemide 40 mg Tablet PO (06:45)
[2024-03-20] MEDS: clopidogrel 75 mg Tablet PO (06:45)
[2024-03-20] MEDS: aspirin 81 mg Chew Tablet 324 MG PO (06:46)
[2024-03-20 07:00] VITALS: BP 141/67; PULSE 96; RESP 20; O2SAT 97
--- NOTE | 2024-03-20 07:34 | ECG_ITS ---
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: : 1960 Requested By: Sean Francis Order Number: [id number] Diane MD: ROSIE EPPERSON Measurements Intervals [place] Rate: 75 P: 46 TX: 150 QRS: 86 QRSD: 96 T: -34 QT: 369 QTc: 413 Interpretive Statements SINUS RHYTHM POSSIBLE INFERIOR MYOCARDIAL INFARCTION , OF INDETERMINATE AGE [30 ms Q WAVE IN II/aVF] Compared to ECG 03/20/2024 05:47:02 Myocardial infarct finding now present Sinus tachycardia no longer present Ventricular premature complex(es) no longer present T-wave abnormality no longer present Electronically Signed On 03-22-2024 23:22:03 VETERINARY RADIOLOGIST by ROSIE EPPERSON [email or web address]
[2024-03-20 08:00] VITALS: BP 141/87; PULSE 65; RESP 20; O2SAT 94
[2024-03-20 08:39] VITALS: PULSE 73; RESP 23; O2SAT 96
[2024-03-20 09:00] LABS: Troponin 5 2HR 27.37 ng/L (0-15); Troponin 5 2HR Delta 1.37 ABS# (0-10)
[2024-03-20 09:25] VITALS: BP 126/62; PULSE 73; RESP 22; O2SAT 98
== END 2024-03-20 09:26 | disposition home or self-care (01) ==
PROVIDERS: Emergency Medicine; Emergency Provider Family Medicine; PCP Nurse Practitioner Family
DX: R07.9 Chest pain, unspecified (principal); I25.5 Ischemic cardiomyopathy; I25.2 Old myocardial infarction; I25.10 Atherosclerotic heart disease of native coronary artery without angina pectoris; Z79.82 Long term (current) use of aspirin; Z79.02 Long term (current) use of antithrombotics/antiplatelets; J44.9 Chronic obstructive pulmonary disease, unspecified; I10 Essential (primary) hypertension
CPT/HCPCS: 36415; 71045; 80053; 84484; 85025; 93005; 99285

== ENCOUNTER 2024-08-20 19:03 | Emergency (ER) | payer MEDICARE, MEDICAID, SELFPAY ==
[2024-08-20 19:06] VITALS: BP 171/86; PULSE 108; RESP 16; TEMP 36.9; O2SAT 96
--- NOTE | 2024-08-20 19:41 | W.ED.GENADLT ---
HPI - General Adult General: Chief complaint: General Medical Stated complaint: elevated blood pressure Time Seen by Provider: 08/20/24 19:14 History of Present Illness: 64-year-old male with 2 complaints. The first is that of hypertension, second is that of chronic right hip pain. He states he received a Toradol and dexamethasone shot back in June, which really helped his hip pain for a while. He was taken into custody earlier in the day, and it was blood pressure was high because of the way he was feeling. His blood pressure is 171 systolic here. He states that his normal medications are metoprolol, spironolactone, atorvastatin, and Plavix. He is out of these. Related Data Previous Rx's ?Medication ?Instructions ?Recorded aspirin 81 mg tablet,delayed 81 mg PO DAILY #90 tabs 08/20/24 release atorvastatin 40 mg tablet 40 mg PO DAILY #90 tabs 08/20/24 clopidogrel 75 mg tablet 75 mg PO DAILY #90 tabs 08/20/24 metoprolol tartrate 25 mg tablet 25 mg PO BID #120 tabs 08/20/24 spironolactone 25 mg tablet 25 mg PO DAILY #30 tabs 08/20/24 Allergies Allergy/AdvReac Type Severity Reaction Status Date / Time No Known Allergies Allergy Verified 06/18/24 13:54 PFSH ED PFSH: Medical History STEMI (ST elevation myocardial infarction) Lung mass Hemorrhoids Opioid contract exists Leriche syndrome COPD (chronic obstructive pulmonary disease) CAD (coronary atherosclerotic disease) PAD (peripheral artery disease) Dyslipidemia HTN (hypertension) Bipolar disorder 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 Myocardial infarct, old Ischemic cardiomyopathy Tobacco abuse Chest pain, atypical Surgical History S/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) Family History Father Cancer Social History Smoking and tobacco/nicotine status: current every day tobacco/nicotine user Alcohol intake: never Substance/Drug Use: current Current gender identity: Male Physical Exam Const: COMMON NORMALS: no acute distress GENERAL APPEARANCE: cooperative; not ill appearing and not frail appearing HENMT: COMMON NORMALS: normocephalic, atraumatic and Normal external nose present HEAD & SCALP: normocephalic and atraumatic FACE & SINUS: normal facial exam and face symmetric NOSE: Normal external nose present Eye: COMMON NORMALS: Equal, round and reactive pupils present and EOMs intact bilaterally PUPIL: Yes Equal, round and reactive pupils present Neck/C-Spine: GENERAL: Yes trachea midline Chest: CHEST: Yes Symmetrical chest wall rise Resp: COMMON NORMALS: normal respiratory effort, No retractions, No use of accessory muscles and clear to auscultation bilaterally AUSCULTATION: clear to auscultation bilaterally Cardio: COMMON NORMALS: regular rate and regular rhythm RATE: regular rate RHYTHM: regular rhythm Neuro: ROSA COMA SCALE: document GCS findings Rosa coma scale eye opening: Spontaneous Rosa coma scale verbal response: Orientated Rosa coma scale motor response: Obey commands Rosa coma scale total score: 15 SENSORY EXAM: Yes extremities (intact) Psych: COMMON NORMALS: speech normal SPEECH: Yes normal speech Course Vital Signs: Vital signs: Vital Signs Temperature 98.5 F 08/20/24 19:06 Pulse Rate 99 08/20/24 20:22 Respiratory Rate 16 08/20/24 19:06 Blood Pressure 154/85 08/20/24 20:22 Pulse Oximetry 98 08/20/24 20:22 Oxygen Delivery Me thod Room Air 08/20/24 19:06 [facility] - General Adult Medical Decision Making Patient is given oral Toradol and oral dexamethasone for his hip. His chronic medications were refilled today. He is given the first dose here. Outpatient follow-up. Return for problems. All radiology interpretation(s) finalized by discharge Discharge Plan Discharge Patient Disposition: Home Clinical Impression: Hypertension, Chronic pain of right hip Condition: Stable Prescriptions: New spironolactone 25 mg tablet 25 mg PO DAILY Qty: 30 0RF Continued atorvastatin 40 mg tablet 40 mg PO DAILY Qty: 90 3RF clopidogrel 75 mg Tablet 75 mg PO DAILY Qty: 90 3RF aspirin 81 mg Tablet,Delayed Release (Dr/Ec) 81 mg PO DAILY Qty: 90 3RF metoprolol tartrate 25 mg tablet 25 mg PO BID Qty: 120 3RF No Action dexamethasone sodium phosphate 4 mg/mL solution 8 mg IM ONCE Qty: 2 0RF ketorolac 30 mg/mL solution 30 mg IM ONCE Qty: 1 0RF Discharge Orders: Discharge ED (Routine); Ordered 08/20/24 Ordered By: Dustin Long Referrals: Bruna Escobedo DO [Primary Care Provider, Family Practice] - 1 week Patient Instructions: Hypertension (ED), Hip Pain (ED), Opioid Safety, Pain Management Activity Restrictions/Additional Instructions: Follow-up with your doctor. Medications will be available to the pharmacy. Print Language: Vincentian Coding Level of Care Code ED Motorized Squad Sergeant for Katarzyna Ruth
[2024-08-20] MEDS: spironolactone 25 mg Tablet PO (20:07)
[2024-08-20] MEDS: metoprolol tartrate 25 mg Tablet PO (20:07)
[2024-08-20] MEDS: atorvastatin 40 mg Tablet PO (20:07)
[2024-08-20] MEDS: clopidogrel 75 mg Tablet PO (20:07)
[2024-08-20] MEDS: dexamethasone 4 mg Tablet 10 MG PO (20:08)
[2024-08-20] MEDS: ketorolac 60 mg/2 mL INJ IM (20:08)
[2024-08-20 20:22] VITALS: BP 154/85; PULSE 99; O2SAT 98
== END 2024-08-20 20:24 | disposition home or self-care (01) ==
PROVIDERS: Emergency Provider Emergency Medicine; PCP Family Medicine
DX: I10 Essential (primary) hypertension (principal); M25.551 Pain in right hip; Z79.02 Long term (current) use of antithrombotics/antiplatelets; Z79.82 Long term (current) use of aspirin; Z72.0 Tobacco use; I25.10 Atherosclerotic heart disease of native coronary artery without angina pectoris; J44.9 Chronic obstructive pulmonary disease, unspecified; E78.5 Hyperlipidemia, unspecified
CPT/HCPCS: 96372; 99284; J1885; J8540; J9999

== ENCOUNTER 2025-02-01 01:57 | Inpatient (IN) | payer MEDICARE, MEDICAID, SELFPAY ==
[2025-02-01] VITALS (44 sets, daily range): BP systolic 85–177; BP diastolic 50–81; PULSE 65–109; RESP 11–34; TEMP 36.3; O2SAT 88–100; BMI 27.4; BMI 29.3
--- NOTE | 2025-02-01 01:46 | ECG_ITS ---
[employer] Test Date: 2025-02-01 Pat Name: Sheldon Isaac Department: Room: Gender: Male Community Health Advocate: : 1960 Requested By: Ap Lake Order Number: [id number] Diane MD: Bebeto Magdaleno M.D. Measurements Intervals [place] Rate: 69 P: 58 NE: 157 QRS: 90 QRSD: 130 T: 78 QT: 411 QTc: 441 Interpretive Statements SINUS RHYTHM INFERIOR MYOCARDIAL INFARCTION , POSSIBLY ACUTE [40+ ms Q WAVE AND/OR ST/T ABNORMALITY IN II/aVF] ACUTE VT Compared to ECG 03/20/2024 07:34:10 No significant changes Electronically Signed On 02-01-2025 08:46:45 ACCOUNT GROUP SUPERVISOR by Bebeto Magdaleno M.D. [email or web address] [id number]
--- NOTE | 2025-02-01 01:46 | XRR_ITS ---
PROCEDURE INFORMATION: Exam: XR Chest Exam date and time: 02/01/2025 1:46 AM Age: 64 years old Clinical indication: Pain; Chest pressure; Prior surgery; Surgery date: 6+ months; Surgery type: Angioplasty, coronary stents; Additional info: Stemi, chest pain, meth use TECHNIQUE: Imaging protocol: Radiologic exam of the chest. Views: 1 view. COMPARISON: CR XR chest 1V portable [id number] 03/20/2024 5:53 AM FINDINGS: Lungs: Mild pulmonary vascular prominence, which may represent a component of pulmonary vascular congestion. No confluent consolidation. Pleural spaces: Unremarkable. No pleural effusion. No pneumothorax. Heart/Mediastinum: Unremarkable. No cardiomegaly. Vasculature: Atherosclerotic changes of the aorta are noted. Bones/joints: Unremarkable. XR/XR chest 1V portable [id number] IMPRESSION: Mild pulmonary vascular prominence, which may represent a component of pulmonary vascular congestion. Otherwise, no acute pulmonary process.
--- NOTE | 2025-02-01 01:48 | W.ED.CHESTPA ---
HPI - Chest Pain General: Chief Complaint: Chest Pain Stated Complaint: cp History of Present Illness: 64-year-old male past medical history significant hypertension hyperlipidemia peripheral arterial disease, CAD, COPD, methamphetamine use, presenting emergency department with chest pain starting 3 hours ago, at rest, patient does endorse methamphetamine use including this evening, self took 324 of aspirin at home although patient reports he has been not taking any of his prescribed medications over the recent past, he is on Plavix but has not taken it recently, EMS obtained EKG concerning for inferior STEMI, they did give 1 dose of nitroglycerin which caused his blood pressure to drop to 100s over 50s so was held, patient on arrival to the ED reports 10 of 10 chest pain, he denies falls or trauma. Related Data Previous Rx's ?Medication ?Instructions ?Recorded aspirin 81 mg tablet,delayed 81 mg PO DAILY #90 tabs 08/20/24 release atorvastatin 40 mg tablet 40 mg PO DAILY #90 tabs 08/20/24 clopidogrel 75 mg tablet 75 mg PO DAILY #90 tabs 08/20/24 metoprolol tartrate 25 mg tablet 25 mg PO BID #120 tabs 08/20/24 spironolactone 25 mg tablet 25 mg PO DAILY #30 tabs 08/20/24 Allergies Allergy/AdvReac Type Severity Reaction Status Date / Time No Known Allergies Allergy Verified 06/18/24 13:54 [facility] ED PFSH: Medical History STEMI (ST elevation myocardial infarction) Lung mass Hemorrhoids Opioid contract exists Leriche syndrome COPD (chronic obstructive pulmonary disease) CAD (coronary atherosclerotic disease) PAD (peripheral artery disease) Dyslipidemia HTN (hypertension) Bipolar disorder 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 Myocardial infarct, old Ischemic cardiomyopathy Tobacco abuse Chest pain, atypical Surgical History S/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) Family History Father Cancer Social History Smoking and tobacco/nicotine status: current every day tobacco/nicotine user Alcohol intake: never Substance/Drug Use: current Current gender identity: Male Physical Exam Narrative: EXAM NARRATIVE: Gen: A&Ox4, patient appears toxic in acute distress, uncomfortable due to pain HEENT: Normocephalic, atraumatic, no scleral icterus, external ears normal, moist mucous membranes Neck: Supple, full range of motion, no observable masses Lungs: No Respiratory distress, Lungs clear to auscultation bilaterally no rales, rhonchi, wheezing CV: Regular rate and rhythm, no murmur, no pitting edema to lower extremities bilaterally Abdomen: Soft, nondistended, nontender to palpation MSK: No joint swelling, FROM all 4 extremities Skin: No rashes, petechiae, lesions. Normal color per patient. Neuro: Alert and oriented, no slurred speech, sensation and strength grossly intact all 4 extremities Psych: Appropriate for situation. Course Consultations: Consultation #1: Discussed case with Dr. Handley at the bedside who took the patient up to Head Paper Tester at 2:16 AM for PCI Time: 02:16 Vital Signs: Vital signs: Vital Signs Temperature 97.4 F L 02/01/25 01:43 Pulse Rate 65 02/01/25 02:35 Respiratory Rate 19 H 02/01/25 01:43 Blood Pressure 101/70 02/01/25 02:35 Pulse Oximetry 99 02/01/25 02:35 Oxygen Delivery Me thod Room Air 02/01/25 02:10 MDM - Chest Pain Medical Decision Making 64-year-old male history of hypertension CAD with stents methamphetamine abuse and medication noncompliance presenting emergency department with 3-hour history of chest pain, EKG showing inferior STEMI with RV involvement, blood pressure dropping after single dose of nitroglycerin given via EMS, patient already received 324 of aspirin prior to arrival, EKG confirming inferior STEMI, patient will receive IV fluids, Brilinta, heparin, fentanyl, cardiology activated as code STEMI prior to arrival and confirmed by myself, for immediate cath. Lab Data Labs showing mild leukocytosis 11.6, borderline troponin 20s, mild proBNP elevation to 50, chest x-ray showing possible mild pulmonary vascular congestion 02/01/25 01:43 02/01/25 01:43 Radiology Impressions Chest X-Ray 02/01/25 01:46 IMPRESSION: Mild pulmonary vascular prominence, which may represent a component of pulmonary vascular congestion. Otherwise, no acute pulmonary process. Laboratory Results WBC 11.63 10^3/uL (3.29-11.43) H 02/01/25 01:43 RBC 4.93 10^6/uL (3.85-5.65) 02/01/25 01:43 Hgb 14.70 g/dL (11.27-16.99) 02/01/25 01:43 Hct 44.0 % (37-53) 02/01/25 01:43 MCV 89.2 fl (82-101) 02/01/25 01:43 MCH 29.8 pg (27-33) 02/01/25 01:43 MCHC 33.4 g/dL (30-55) 02/01/25 01:43 RDW 12.2 % (12.1-15.1) 02/01/25 01:43 Plt Count 175 10^3/cmm (157-399) 02/01/25 01:43 MPV 9.0 fL (7.4-10.4) 02/01/25 01:43 Neut % (Auto) 73.4 % 02/01/25 01:43 Lymph % (Auto) 18.9 % 02/01/25 01:43 Forrest % (Auto) 4.9 % 02/01/25 01:43 Eos % (Auto) 1.8 % 02/01/25 01:43 Baso % (Auto) 0.7 % 02/01/25 01:43 Neut # (Auto) 8.53 10^3/uL (1.8-7.7) H 02/01/25 01:43 Lymph # (Auto) 2.2 10^3/uL (0.8-4.8) 02/01/25 01:43 Forrest # (Auto) 0.6 10^3/uL (0.2-0.9) 02/01/25 01:43 Eos # (Auto) 0.2 10^3/uL (0.0-0.8) 02/01/25 01:43 Baso # (Auto) 0.1 10^3/uL (0.0-0.1) 02/01/25 01:43 Nucleated RBC % (auto) 0 % 02/01/25 01:43 Nucleated RBCs # 0.0 /100WBC 02/01/25 01:43 PT 13.30 SECONDS (12.1-14.9) 02/01/25 01:43 INR 0.95 (0.8-1.2) 02/01/25 01:43 APTT 27.4 SECONDS (23.9-36.7) 02/01/25 01:43 Sodium 140 mmol/L (136-145) 02/01/25 01:43 Potassium 3.5 mmol/L (3.5-5.1) 02/01/25 01:43 Chloride 101 mmol/L (98-107) 02/01/25 01:43 Carbon Dioxide 24 mmol/L (22-29) 02/01/25 01:43 Anion Gap 18.5 (5-19) 02/01/25 01:43 BUN 11 mg/dL (8-23) 02/01/25 01:43 Creatinine 1.1 mg/dL (0.7-1.2) 02/01/25 01:43 GFR Calculation 67.2 mL/min (90-130) L 02/01/25 01:43 Glucose 181 mg/dL (65-115) H 02/01/25 01:43 Calculated Osmolality 294 mOsm/kg (285-295) 02/01/25 01:43 Calcium 9.0 mg/dL (8.5-10.5) 02/01/25 01:43 Total Bilirubin 0.4 mg/dL (0.15-1.2) 02/01/25 01:43 AST 19 U/L (0-40) 02/01/25 01:43 ALT 30 U/L (0-41) 02/01/25 01:43 Alkaline Phosphatase 96 U/L (40-130) 02/01/25 01:43 Troponin T Baseline 28 ng/L (0-15) H 02/01/25 01:43 NT-Pro-B Natriuret Pep 253 pg/mL (0-125) H 02/01/25 01:43 Total Protein 7.0 g/dL (6.6-8.7) 02/01/25 01:43 Albumin 4.2 g/dL (3.5-5.2) 02/01/25 01:43 Globulin 2.8 g/dL (1.3-4.6) 02/01/25 01:43 Lipase 28 U/L (13-60) 02/01/25 01:43 All radiology interpretation(s) finalized by discharge ED provider radiology interpretation(s): Chest x-ray showing mild pulmonary vascular congestion EKG Data EKG 1: I personally reviewed and interpreted this EKG as follows: EKG interpretation date: 02/01/25 EKG interpretation time: 01:51 Prior EKG tracings: available for review Ischemic changes: acute STEMI Interpretation: Sinus rhythm at 69 bpm, inferior STEMI present with reciprocal lateral ST depressions, QTc 430 ms Discharge Plan Discharge Patient Disposition: Admitted As Inpatient Clinical Impression: ST elevation (STEMI) myocardial infarction Condition: Stable Coding Level of Care Code ED Back Tender Paper Machine for Chg Fwd Heart Score HEART Score Components History: Highly Suspicious EKG: Significant ST-deviation Age: 65 or more yrs Risk Factors: >/=3 Risk Factors Troponin: Baseline Trop 16-45 ng/L HEART Score RESULT HEART Score: 9
[2025-02-01 01:53] LABS: Hematocrit 44.0 % (37-53); Hemoglobin 14.70 g/dL (11.27-16.99); Mean Corpuscular HGB Conc 33.4 g/dL (30-55); Mean Corpuscular Hemoglobin 29.8 pg (27-33); Mean Corpuscular Volume 89.2 fl (82-101); Nucleated Red Blood Cells % 0 %; Platelet Count 175 10^3/cmm (157-399); Red Blood Count 4.93 10^6/uL (3.85-5.65); White Blood Count 11.63 10^3/uL (3.29-11.43)
[2025-02-01] MEDS: heparin 5,000 unit/mL INJ 1 mL 4000 UNIT IVP (02:02)
[2025-02-01 02:04] LABS: INR 0.95 (0.8-1.2); Partial Thromboplastin Time 27.4 SECONDS (23.9-36.7); Prothrombin Time 13.30 SECONDS (12.1-14.9)
[2025-02-01] MEDS: ondansetron 2 mg/ML SDV 2 mL 4 MG IVP (02:04)
[2025-02-01] MEDS: fentaNYL 50 mcg/mL INJ 2mL IVP ×2 (02:04→02:08)
--- OUTSIDE RECORDS SUMMARY | 2025-02-01 02:04 | XMS_ITS | Clinical Summary ---
Author Organization [facility] [place] Address [address] [place] [address] Phone Care Team Providers Care Agricultural Scientist Name Role Phone Non-Staff, Physician Primary Care Provider Unava ilable Medications lisinopril (PRINIVIL) 2.5 mg Oral Tab Take 1 Tab by mouth daily. 30 Tab 2 07/20/2008 Active aspirin (SHERON) 325 mg Oral Tab Take by mouth daily. Active clopidogrel (PLAVIX) 75 mg Oral Tab Take by mouth daily. Active nitroglycerin (NITROQUICK) 0.[address] under tongue every 5 minutes as needed for Chest Pain. Active lisinopril (PRINIVIL) 2.5 mg Oral Tab Take by mouth daily. 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 Gender Identity Not on file Sexual Orientation Not on file Last Filed Vital Signs Vital Sign Reading Time Taken Comments Blood Pressure 125/76 02/10/2020 11:33 AM RAILROAD AUDITOR Pulse 77 02/10/2020 11:33 AM RAILROAD AUDITOR Temperature - - Respiratory Rate - - Oxygen Saturation 77% 02/10/2020 11:33 AM RAILROAD AUDITOR Inhaled Oxygen Concentration - - Weight 66.7 kg (147 lb) 02/10/2020 11:33 AM RAILROAD AUDITOR Height 167.6 cm (5' 6 ) 02/10/2020 11:33 AM RAILROAD AUDITOR Body Mass Index 23.73 02/10/2020 11:33 AM RAILROAD AUDITOR Plan of Treatment Health Maintenance Due Date Last Done Comments PNEUMOCOCCAL VACCINE 50+ YEARS (1 of 2 - PCV) 05/16/18 79 DTAP/TDAP/TD VACCINES (1 - Tdap) 11/12/1999 11/11/19 00 COLORECTAL SCREENING 05/16/2004 Colorectal Cancer Screening 05/16/2004 FIT-DNA Q 3 years 05/16/2004 FIT/FOBT Q 1 year 05/16/2004 Flex Sig/CT Colonography Q 5 years 05/16/2004 ZOSTER VACCINE (1 of 2) 05/16/2009 INFLUENZA VACCINE (#1) 2024 RSV VACCINE (60+ or ) (1 - 1-dose 75+ series) 05/16/2034 Insurance MEDICAID [place] Care Teams Agricultural Scientist Relationship Specialty Start Date End Date Non-Staff, Physician NO ADDRESS ON FILE PCP - General 09/01/07
--- OUTSIDE RECORDS SUMMARY | 2025-02-01 02:04 | XMS_ITS | Encounter Summary ---
Author Organization [facility] Address [address] [place] [address] Care Team Providers Care Wheel Cleaner Name Role Phone Non-Staff, Physician Primary Care Provider Anthony mejia Encounter Details Date Type Department Care Team (Late st Contact Info) Description 08/11/2006 Outpatient Historical [facility] [address] [place] [address] Danie York MD [address] [facility] [address] [place] [address] Atheroscler-Limb&Cl audic ([facility]) (Primary Dx) Social History Tobacco Use Types Packs/Day Years Used Date Smoking Tobacco: Never Assessed Sex and Gender Information Value Date Recorded Sex Assigned at Not on file Legal Sex 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
--- OUTSIDE RECORDS SUMMARY | 2025-02-01 02:04 | XMS_ITS | Encounter Summary ---
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 Gender Identity Not on file Sexual Orientation Not on file documented as of this encounter Plan of Treatment Not on file documented as of this encounter Procedures Procedure Name Priority Date/Time Associated Diagnosis Comments CBC WITH DIFFERENTIAL Routine 06/05/2006 4:41 AM CDT HEPATIC FUNCTION PANEL Routine 06/05/2006 4:41 AM CDT BASIC METABOLIC PANEL Routine 06/05/2006 4:41 AM CDT POC ACTIVATED CLOTTING TIME Routine 06/03/2006 6:29 PM CDT POC ACTIVATED CLOTTING TIME Routine 06/03/2006 6:13 PM CDT POC ACTIVATED CLOTTING TIME Routine 06/03/2006 4:57 PM CDT POTASSIUM LEVEL Routine 06/03/2006 8:48 AM CDT CK TOTAL, RELATIVE INDEX Routine 06/03/2006 7:37 AM CDT CARDIAC ENZYMES Routine 06/03/2006 7:37 AM CDT PTT Routine 06/03/2006 7:37 AM CDT CBC WITHOUT DIFFERENTIAL Routine 06/03/2006 7:37 AM CDT CK Routine 06/03/2006 7:37 AM CDT BASIC METABOLIC PANEL Routine 06/03/2006 7:36 AM CDT CK TOTAL, RELATIVE INDEX Routine 06/03/2006 1:20 AM CDT CARDIAC ENZYMES Routine 06/03/2006 1:20 AM CDT PTT Routine 06/03/2006 1:20 AM CDT TSH Routine 06/03/2006 1:20 AM CDT CK Routine 06/03/2006 1:20 AM CDT HEPATIC FUNCTION PANEL Routine 06/03/2006 1:20 AM CDT LIPID PANEL Routine 06/03/2006 1:20 AM CDT XR CHEST PA OR AP 1 VW Routine 06/02/2006 7:40 PM CDT CK TOTAL, RELATIVE INDEX Routine 06/02/2006 7:34 PM CDT CARDIAC ENZYMES Routine 06/02/2006 7:34 PM CDT CBC WITH DIFFERENTIAL Routine 06/02/2006 7:34 PM CDT PTT Routine 06/02/2006 7:34 PM CDT PROTIME-INR Routine 06/02/2006 7:34 PM CDT CK Routine 06/02/2006 7:34 PM CDT BASIC METABOLIC PANEL Routine 06/02/2006 7:34 PM CDT documented in this encounter Results * (ABNORMAL) CBC WITH DIFFERENTIAL (06/05/2006 4:41 AM CDT) WBC 6.4 4.5 - 11.0 K/ul INTERFACE SYSTEM RBC 4.24(L) 4.60 - 6.20 Mil/ul INTERFACE SYSTEM HEMOGLOBIN 12.7(L) 14.0 - 18.0 g/dL INTERFACE SYSTEM HEMATOCRIT 36.3(L) 41.0 - 53.0 % INTERFACE SYSTEM MCV 85.6 84.0 - 103.0 Fl INTERFACE SYSTEM MCH 30.0 27.0 - 34.0 pg INTERFACE SYSTEM MCHC 35.0 30.0 - 35.0 g/dL INTERFACE SYSTEM RDW 12.7 11.0 - 14.5 % INTERFACE SYSTEM PLATELETS 110(L) 140 - 440 K/ul INTERFACE SYSTEM MPV 9.9 8.9 - 12.8 Fl INTERFACE SYSTEM NEUTROPHILS 51.5 42.2 - 75.2 % INTERFACE SYSTEM LYMPHOCYTES 36.6 24.0 - 44.0 % INTERFACE SYSTEM MONOCYTES 7.5 2.0 - 10.0 % INTERFACE SYSTEM EOSINOPHILS 3.3 0.0 - 7.0 % INTERFACE SYSTEM BASOPHILS 1.1(H) 0.0 - 1.0 % INTERFACE SYSTEM NEUTROPHIL ABSOLUTE 3.3 2.0 - 8.0 K/ul INTERFACE SYSTEM LYMPHOCYTE ABSOLUTE 2.3 1.2 - 4.0 K/ul INTERFACE SYSTEM MONOCYTE ABSOLUTE 0.5 0.1 - 0.6 K/ul INTERFACE SYSTEM EOSINOPHIL ABSOLUTE 0.2 0.0 - 0.7 K/ul INTERFACE SYSTEM BASOPHILS ABSOLUTE 0.1 0.0 - 0.2 K/ul INTERFACE SYSTEM 06/05/2006 4:41 AM CDT us Danie York MD HEMATOLOGY ORDERABLES Edited INTERFACE SYSTEM Refer to clinic/hospital department * (ABNORMAL) HEPATIC FUNCTION PANEL (06/05/2006 4:41 AM CDT) TOTAL PROTEIN 6.0(L) 6.3 - 8.2 g/dL INTERFACE SYSTEM ALBUMIN 3.8 3.5 - 5.0 g/dL INTERFACE SYSTEM ALKALINE PHOSPHATASE 59 25 - 100 U/L INTERFACE SYSTEM AST 40(H) 8 - 33 U/L INTERFACE SYSTEM ALT 30 4 - 36 IU/L INTERFACE SYSTEM BILIRUBIN TOTAL 0.9 0.3 - 1.2 mg/dL INTERFACE SYSTEM BILIRUBIN DIRECT 0.3 0.0 - 0.4 mg/dL INTERFACE SYSTEM 06/05/2006 4:41 AM CDT Danie York MD CHEMISTRY ORDERABLES Edited Performing Organization Address [facility] Phone Number INTERFACE SYSTEM Refer to clinic/hospital department * BASIC METABOLIC PANEL (06/05/2006 4:41 AM CDT) GLUCOSE 94 70 - 110 mg/dL INTERFACE SYSTEM BUN 11 9 - 20 mg/dL INTERFACE SYSTEM CREATININE 1.0 0.7 - 1.5 mg/dL INTERFACE SYSTEM SODIUM 140 136 - 145 mEq/L INTERFACE SYSTEM POTASSIUM 3.9 3.5 - 5.0 mEq/L INTERFACE SYSTEM CHLORIDE 108 95 - 110 mEq/L INTERFACE SYSTEM CO2 24 22 - 32 mmol/l INTERFACE SYSTEM CALCIUM 8.7 8.4 - 10.5 mg/dL INTERFACE SYSTEM ANION GAP 12 9 - 20 mEq/L INTERFACE SYSTEM OSMOLALITY, CALCULATED 287 275 - 295 mOsm/Kg INTERFACE SYSTEM 06/05/2006 4:41 AM CDT Danie York MD CHEMISTRY ORDERABLES Edited Performing Organization Address [facility] Phone Number INTERFACE SYSTEM Refer to clinic/hospital department * POC ACTIVATED CLOTTING TIME (06/03/2006 6:29 PM CDT) ACT POC 141 79 - 149 sec INTERFACE SYSTEM 06/03/2006 6:29 PM CDT Danie York MD POINT OF CARE TESTING Edited Performing Organization Address [facility] Phone Number INTERFACE SYSTEM Refer to clinic/hospital department * (ABNORMAL) POC ACTIVATED CLOTTING TIME (06/03/2006 6:13 PM CDT) ACT POC 168(H) 79 - 149 sec INTERFACE SYSTEM 06/03/2006 6:13 PM CDT Danie York MD POINT OF CARE TESTING Edited Performing Organization Address [facility] Phone Number INTERFACE SYSTEM Refer to clinic/hospital department * (ABNORMAL) POC ACTIVATED CLOTTING TIME (06/03/2006 4:57 PM CDT) ACT POC 177(H) 79 - 149 sec INTERFACE SYSTEM 06/03/2006 4:57 PM CDT Danie York MD POINT OF CARE TESTING Edited Performing Organization Address [facility] Phone Number INTERFACE SYSTEM Refer to clinic/hospital department * POTASSIUM LEVEL (06/03/2006 8:48 AM CDT) POTASSIUM 4.5 3.5 - 5.0 mEq/L INTERFACE SYSTEM 06/03/2006 8:48 AM CDT Danie York MD CHEMISTRY ORDERABLES Edited Performing Organization Address [facility] Phone Number INTERFACE SYSTEM Refer to clinic/hospital department * (ABNORMAL) CK TOTAL, RELATIVE INDEX (06/03/2006 7:37 AM CDT) CK-MB CHEMICAL INDEX 8.5(H) 0.0 - 4.5 INTERFACE SYSTEM 06/03/2006 7:37 AM CDT Evangelista Littlejohn DO CHEMISTRY ORDERABLES Edite d Performing Organization Address [facility] Phone Number INTERFACE SYSTEM Refer to clinic/hospital department * (ABNORMAL) CK (06/03/2006 7:37 AM CDT) CK 379(H) 38 - 174 U/L INTERFACE SYSTEM Comment: As of 05 the [facility] has changed testing methods. The new reference ranges are Males 38-174 Females 26-140 The old referance ranges were Males 0-155 Females 0-133 Specimen moderately hemolyzed 06/03/2006 7:37 AM CDT Evangelista Littlejohn DO CHEMISTRY ORDERABLES Edite d Performing Organization Address [facility] de Phone Number INTERFACE SYSTEM Refer to clinic/hospital department * (ABNORMAL) PTT (06/03/2006 7:37 AM CDT) PTT 103.8(H) 21.6 - 35.6 Secs INTERFACE SYSTEM Comment: Therapeutic Range: Hi-level PE/DVT heparin protocol 80.1 -95.0 sec Lo-level PE/DVT heparin protocol 67.1 - 80.0 sec Cardiac Heparin Protocol 67.1 - 85.0 sec Neuro Heparin Protocol 67.1 - 80.0 sec As of 02/06/2006 note change in APTT Normal Range. 06/03/2006 7:37 AM CDT Danie York MD HEMATOLOGY ORDERABLES Edited Performing Organization Address [facility] Phone Number INTERFACE SYSTEM Refer to clinic/hospital department * (ABNORMAL) CBC WITHOUT DIFFERENTIAL (06/03/2006 7:37 AM CDT) WBC 9.5 4.5 - 11.0 K/ul INTERFACE SYSTEM RBC 4.29(L) 4.60 - 6.20 Mil/ul INTERFACE SYSTEM HEMOGLOBIN 13.0(L) 14.0 - 18.0 g/dL INTERFACE SYSTEM HEMATOCRIT 37.3(L) 41.0 - 53.0 % INTERFACE SYSTEM MCV 86.9 84.0 - 103.0 Fl INTERFACE SYSTEM MCH 30.3 27.0 - 34.0 pg INTERFACE SYSTEM MCHC 34.9 30.0 - 35.0 g/dL INTERFACE SYSTEM RDW 13.2 11.0 - 14.5 % INTERFACE SYSTEM PLATELETS 120(L) 140 - 440 K/ul INTERFACE SYSTEM MPV 10.2 8.9 - 12.8 Fl INTERFACE SYSTEM NEUTROPHILS 64.3 42.2 - 75.2 % INTERFACE SYSTEM LYMPHOCYTES 27.5 24.0 - 44.0 % INTERFACE SYSTEM MONOCYTES 5.7 2.0 - 10.0 % INTERFACE SYSTEM EOSINOPHILS 2.2 0.0 - 7.0 % INTERFACE SYSTEM BASOPHILS 0.3 0.0 - 1.0 % INTERFACE SYSTEM NEUTROPHIL ABSOLUTE 6.1 2.0 - 8.0 K/ul INTERFACE SYSTEM LYMPHOCYTE ABSOLUTE 2.6 1.2 - 4.0 K/ul INTERFACE SYSTEM MONOCYTE ABSOLUTE 0.5 0.1 - 0.6 K/ul INTERFACE SYSTEM EOSINOPHIL ABSOLUTE 0.2 0.0 - 0.7 K/ul INTERFACE SYSTEM BASOPHILS ABSOLUTE 0.0 0.0 - 0.2 K/ul INTERFACE SYSTEM 06/03/2006 7:37 AM CDT us Danie York MD HEMATOLOGY ORDERABLES Edited INTERFACE SYSTEM Refer to clinic/hospital department * (ABNORMAL) CARDIAC ENZYMES (06/03/2006 7:37 AM CDT) TROPONIN I 11.1(AA) 0.0 - 1.5 ng/mL INTERFACE SYSTEM Comment:TROP OF 11.1 CALLED TO Oswaldo VARGAS (VERBAL REPEAT) 06/03/2006 08:13/PEB CKMB 32.3(H) 0.0 - 5.0 ng/mL INTERFACE SYSTEM 06/03/2006 7:37 AM CDT us Evangelista Littlejohn DO CHEMISTRY ORDERABLES Edite d INTERFACE SYSTEM Refer to clinic/hospital department * (ABNORMAL) BASIC METABOLIC PANEL (06/03/2006 7:36 AM CDT) GLUCOSE 112(H) 70 - 110 mg/dL INTERFACE SYSTEM BUN 17 9 - 20 mg/dL INTERFACE SYSTEM CREATININE 0.9 0.7 - 1.5 mg/dL INTERFACE SYSTEM SODIUM 139 136 - 145 mEq/L INTERFACE SYSTEM POTASSIUM 6.1(H) 3.5 - 5.0 mEq/L INTERFACE SYSTEM Comment:Specimen moderately hemolyzed CHLORIDE 109 95 - 110 mEq/L INTERFACE SYSTEM CO2 24 22 - 32 mmol/l INTERFACE SYSTEM CALCIUM 8.8 8.4 - 10.5 mg/dL INTERFACE SYSTEM ANION GAP 12 9 - 20 mEq/L INTERFACE SYSTEM OSMOLALITY, CALCULATED 292 275 - 295 mOsm/Kg INTERFACE SYSTEM 06/03/2006 7:36 AM CDT Danie York MD CHEMISTRY ORDERABLES Edited Performing Organization Address [facility] Phone Number INTERFACE SYSTEM Refer to clinic/hospital department * (ABNORMAL) PTT (06/03/2006 1:20 AM CDT) PTT 118.8(H) 21.6 - 35.6 Secs INTERFACE SYSTEM Comment: Therapeutic Range: Hi-level PE/DVT heparin protocol 80.1 -95.0 sec Lo-level PE/DVT heparin protocol 67.1 - 80.0 sec Cardiac Heparin Protocol 67.1 - 85.0 sec Neuro Heparin Protocol 67.1 - 80.0 sec As of 02/06/2006 note change in APTT Normal Range. 06/03/2006 1:20 AM CDT Danie York MD HEMATOLOGY ORDERABLES Edited Performing Organization Address [facility] Phone Number INTERFACE SYSTEM Refer to clinic/hospital department * (ABNORMAL) CK TOTAL, RELATIVE INDEX (06/03/2006 1:20 AM CDT) CK-MB CHEMICAL INDEX 10.0(H) 0.0 - 4.5 INTERFACE SYSTEM 06/03/2006 1:20 AM CDT Evangelista Littlejohn DO CHEMISTRY ORDERABLES Edite d Performing Organization Address [facility] Phone Number INTERFACE SYSTEM Refer to clinic/hospital department * (ABNORMAL) CK (06/03/2006 1:20 AM CDT) CK 357(H) 38 - 174 U/L INTERFACE SYSTEM Comment: As of 05 the [facility] has changed testing methods. The new reference ranges are Males 38-174 Females 26-140 The old referance ranges were Males 0-155 Females 0-133 06/03/2006 1:20 AM CDT Evangelista Littlejohn DO CHEMISTRY ORDERABLES Edite d Performing Organization Address [facility] Phone Number INTERFACE SYSTEM Refer to clinic/hospital department * (ABNORMAL) CARDIAC ENZYMES (06/03/2006 1:20 AM CDT) TROPONIN I 20.7(AA) 0.0 - 1.5 ng/mL INTERFACE SYSTEM Comment: Potentially critical/toxic trop called by ef to sangeetha, with verbal read back, at 06/03/2006 02:18. CKMB 35.6(H) 0.0 - 5.0 ng/mL INTERFACE SYSTEM 06/03/2006 1:20 AM CDT Evangelista Littlejohn DO CHEMISTRY ORDERABLES Edite d Performing Organization Address [facility] Phone Number INTERFACE SYSTEM Refer to clinic/hospital department * (ABNORMAL) LIPID PANEL (06/03/2006 1:20 AM CDT) CHOLESTEROL 141 75 - 200 mg/dL INTERFACE SYSTEM HDL 31(L) 40 - 60 mg/dL INTERFACE SYSTEM CALCULATED LDL CHOLESTEROL 93 0 - 130 mg/dL INTERFACE SYSTEM TRIGLYCERIDE 86 0 - 179 mg/dL INTERFACE SYSTEM CALCULATED TOTAL CHOLESTEROL TO HDL RATIO 4.55 3.43 - 4.97 INTERFACE SYSTEM 06/03/2006 1:20 AM CDT Danie York MD CHEMISTRY ORDERABLES Edited Performing Organization Address [facility] Phone Number INTERFACE SYSTEM Refer to clinic/hospital department * (ABNORMAL) HEPATIC FUNCTION PANEL (06/03/2006 1:20 AM CDT) TOTAL PROTEIN 6.5 6.3 - 8.2 g/dL INTERFACE SYSTEM ALBUMIN 4.2 3.5 - 5.0 g/dL INTERFACE SYSTEM ALKALINE PHOSPHATASE 69 25 - 100 U/L INTERFACE SYSTEM AST 45(H) 8 - 33 U/L INTERFACE SYSTEM ALT 31 4 - 36 IU/L INTERFACE SYSTEM BILIRUBIN TOTAL 0.6 0.3 - 1.2 mg/dL INTERFACE SYSTEM BILIRUBIN DIRECT 0.2 0.0 - 0.4 mg/dL INTERFACE SYSTEM 06/03/2006 1:20 AM CDT us Danie York MD CHEMISTRY ORDERABLES Edited Performing Organization Address [facility] de Phone Number INTERFACE SYSTEM Refer to clinic/hospital department * TSH (06/03/2006 1:20 AM CDT) TSH 3.374 0.350 - 5.500 uIU/ml INTERFACE SYSTEM Comment: As of 04 at 3:00 p.m. [facility] has changed the methodology for TSH, and with this change the reference range has changed from 0.49-4.67 to 0.35-5.5 uIU/ml. 06/03/2006 1:20 AM CDT us Danie York MD CHEMISTRY ORDERABLES Edited Performing Organization Address [facility] Phone Number INTERFACE SYSTEM Refer to clinic/hospital department * XR CHEST PA OR AP (06/02/2006 7:40 PM CDT) Anatomical Region Laterality Modality Chest Other 06/02/2006 7:40 PM CDT Narrative 06/02/2006 7:40 PM CDT AP PORTABLE CHEST 06/02/2006 at 1939. Comparisons: None. Clinical History: Chest pain. Findings: Heart size and mediastinal silhouette appear within normal limits. Defibrillator pad seenoverlying the right upper chest. Right base atelectasis is present. No other effusions, edema orother infiltrates noted. Osseous structures appear within normal limits. Impressions: 1. Right base atelectasis. - Dictated By: Kj Hunter M.D., Ph.D. Electronically Signed By: Kj Hunter M.D., Ph.D. Date Signed: 06/03/06 Procedure Note 01/21/2009 AP PORTABLE CHEST 06/02/2006 at 1939. Comparisons: None. Clinical History: Chest pain. Findings: Heart size and mediastinal silhouette appear within normal limits.Defibrillator pad seenoverlying the right upper chest. Right base atelectasis is present. No other effusions,edema orother infiltrates noted. Osseous structures appear within normal limits. Impressions: 1. Right base atelectasis. - Dictated By: Kj Hunter M.D., Ph.D. Electronically Signed By: Kj Hunter M.D., Ph.D. Date Signed: 06/03/06 Evangelista Littlejohn DO DIAGNOSTIC IMAGING ORDERAB LES Final Result * (ABNORMAL) CBC WITH DIFFERENTIAL (06/02/2006 7:34 PM CDT) WBC 18.1(H) 4.8 - 10.8 K/ul INTERFACE SYSTEM RBC 4.69 4.60 - 6.20 Mil/ul INTERFACE SYSTEM HEMOGLOBIN 14.3 14.0 - 18.0 g/dL INTERFACE SYSTEM HEMATOCRIT 40.3(L) 41.0 - 53.0 % INTERFACE SYSTEM MCV 85.9 84.0 - 103.0 Fl INTERFACE SYSTEM MCH 30.5 27.0 - 34.0 pg INTERFACE SYSTEM MCHC 35.5(H) 30.0 - 35.0 g/dL INTERFACE SYSTEM RDW 12.7 11.0 - 14.5 % INTERFACE SYSTEM PLATELETS 147 140 - 440 K/ul INTERFACE SYSTEM MPV 9.9 8.9 - 12.8 Fl INTERFACE SYSTEM NEUTROPHILS 83.6(H) 42.2 - 75.2 % INTERFACE SYSTEM LYMPHOCYTES 11.5(L) 24.0 - 44.0 % INTERFACE SYSTEM MONOCYTES 4.4 2.0 - 10.0 % INTERFACE SYSTEM EOSINOPHILS 0.3 0.0 - 7.0 % INTERFACE SYSTEM BASOPHILS 0.2 0.0 - 1.0 % INTERFACE SYSTEM NEUTROPHIL ABSOLUTE 15.2(H) 2.0 - 8.0 K/ul INTERFACE SYSTEM LYMPHOCYTE ABSOLUTE 2.1 1.2 - 4.0 K/ul INTERFACE SYSTEM MONOCYTE ABSOLUTE 0.8(H) 0.1 - 0.6 K/ul INTERFACE SYSTEM EOSINOPHIL ABSOLUTE 0.1 0.0 - 0.7 K/ul INTERFACE SYSTEM BASOPHILS ABSOLUTE 0.0 0.0 - 0.2 K/ul INTERFACE SYSTEM 06/02/2006 7:34 PM CDT Evangelista Littlejohn DO HEMATOLOGY ORDERABLES Edit ed Performing Organization Address [facility] de Phone Number INTERFACE SYSTEM Refer to clinic/hospital department * (ABNORMAL) PTT (06/02/2006 7:34 PM CDT) PTT 186.2(AA) 21.6 - 35.6 Secs INTERFACE SYSTEM Comment: Therapeutic Range: Hi-level PE/DVT heparin protocol 80.1 -95.0 sec Lo-level PE/DVT heparin protocol 67.1 - 80.0 sec Cardiac Heparin Protocol 67.1 - 85.0 sec Neuro Heparin Protocol 67.1 - 80.0 sec As of 02/06/2006 note change in APTT Normal Range. Potentially critical/toxic ptt called by lpf to Aron, with verbal read back, at 06/02/2006 20:03. 06/02/2006 7:34 PM CDT Evangelista Littlejohn DO HEMATOLOGY ORDERABLES Edit ed Performing Organization Address [facility] de Phone Number INTERFACE SYSTEM Refer to clinic/hospital department * (ABNORMAL) PROTIME-INR (06/02/2006 7:34 PM CDT) PROTIME 17.1(H) 13.0 - 15.7 Secs INTERFACE SYSTEM Comment: As of 05 note change in normal range. INR 1.3 INTERFACE SYSTEM Comment: Expected Values for INR: DVT/PE Goal INR 2.5; range 2.0 - 3.0 Valve Replacement Tissue Goal INR 2.5; range 2.0 - 3.0 Mechanical Goal INR 3.0; range 2.5 - 3.5 POST-MN Goal INR 2.5; range 2.0 - 3.0 or Goal 3.0; range 2.5 - 3.5 Atrial Fibrillation Goal INR 2.5; range 2.0 - 3.0 Ischemic Stroke Goal INR 2.5; range 2.0 - 3.0 For additional information see Guidelines for Anticoagulation available from the pharmacy Zeinab Wilson. 06/02/2006 7:34 PM CDT us Evangelista Littlejohn DO HEMATOLOGY ORDERABLES Edit ed Performing Organization Address [facility] Phone Number INTERFACE SYSTEM Refer to clinic/hospital department * (ABNORMAL) CK TOTAL, RELATIVE INDEX (06/02/2006 7:34 PM CDT) CK-MB CHEMICAL INDEX 8.4(H) 0.0 - 4.5 INTERFACE SYSTEM 06/02/2006 7:34 PM CDT Evangelista Littlejohn DO CHEMISTRY ORDERABLES Edite d Performing Organization Address [facility] Phone Number INTERFACE SYSTEM Refer to clinic/hospital department * CK (06/02/2006 7:34 PM CDT) Pathologist [facility] CK 162 38 - 174 U/L INTERFACE SYSTEM Comment: As of 05 the [facility] has changed testing methods. The new reference ranges are Males 38-174 Females 26-140 The old referance ranges were Males 0-155 Females 0-133 06/02/2006 7:34 PM CDT Evangelista Littlejohn DO CHEMISTRY ORDERABLES Edite d Performing Organization Address [facility] Phone Number INTERFACE SYSTEM Refer to clinic/hospital department * (ABNORMAL) BASIC METABOLIC PANEL (06/02/2006 7:34 PM CDT) GLUCOSE 112(H) 70 - 110 mg/dL INTERFACE SYSTEM BUN 17 9 - 20 mg/dL INTERFACE SYSTEM CREATININE 1.0 0.7 - 1.5 mg/dL INTERFACE SYSTEM SODIUM 146(H) 136 - 145 mEq/L INTERFACE SYSTEM POTASSIUM 4.4 3.5 - 5.0 mEq/L INTERFACE SYSTEM CHLORIDE 113(H) 95 - 110 mEq/L INTERFACE SYSTEM CO2 23 22 - 32 mmol/l INTERFACE SYSTEM CALCIUM 9.0 8.4 - 10.5 mg/dL INTERFACE SYSTEM ANION GAP 14 9 - 20 mEq/L INTERFACE SYSTEM OSMOLALITY, CALCULATED 302(H) 275 - 295 mOsm/Kg INTERFACE SYSTEM 06/02/2006 7:34 PM CDT Evangelista Littlejohn DO CHEMISTRY ORDERABLES Edite d Performing Organization Address City/[facility] Co de Phone Number INTERFACE SYSTEM Refer to clinic/hospital department * (ABNORMAL) CARDIAC ENZYMES (06/02/2006 7:34 PM CDT) TROPONIN I 7.5(AA) 0.0 - 1.5 ng/mL INTERFACE SYSTEM Comment: Potentially critical/toxic troponin called by rr to aron, with verbal read back, at 06/02/2006 20:13. CKMB 13.6(H) 0.0 - 5.0 ng/mL INTERFACE SYSTEM 06/02/2006 7:34 PM CDT Evangelista Littlejohn DO CHEMISTRY ORDERABLES Edite d Performing Organization Address [facility] Phone Number INTERFACE SYSTEM Refer to clinic/hospital department documented in this encounter Visit Diagnoses Diagnosis Acute myocardial infarction of other inferior wall, initial episode of care- Primary documented in this encounter Care Teams Vegetable Picker Relationship Specialty Start Date End Date Non-Staff, Physician NO ADDRESS ON FILE PCP - General 09/01/07 documented as of this encounter
--- OUTSIDE RECORDS SUMMARY | 2025-02-01 02:04 | XMS_ITS | Encounter Summary ---
Author Organization [facility] Address [address] [place] [address] Care Team Providers Care Seismic Prospecting Observer Name Role Phone Non-Staff, Physician Primary Care Provider Unava ilable Encounter Details Date Type Department Care Team (Latest Contact Info) Description 07/29/2006 Outpatient Historical [facility] [place] [address] [place] [address] Danie York MD [address] [facility] [address] [place] [address] Atheroscler-Limb&Cla udic (CMS/HCC) (Primary Dx); Unspecified Hypertensive Heart Disease with Heart Failure (CMS/[facility]); Old Myocardial Infarct; Other Chest Pain Social History Tobacco Use Types Packs/Day Years Used Date Smoking Tobacco: Never Assessed Sex and Gender Information Value Date Recorded Sex Assigned at Not on file Legal Sex Male 5:51 AM [employer] Gender Identity Not on file Sexual Orientation Not on file documented as of this encounter Plan of Treatment Not on file documented as of this encounter Visit Diagnoses Diagnosis Atherosclerosis of [place] arteries of the extremities with intermittent claudication- Primary Unspecified hypertensive heart disease with heart failure(402.91) (CMS/HCC) Unspecified hypertensive heart disease with heart failure Old myocardial infarct Old myocardial infarction Other chest pain documented in this encounter Care Teams Seismic Prospecting Observer Relationship Specialty Start Date End Date Non-Staff, Physician NO ADDRESS ON FILE PCP - General 09/01/07 documented as of this encounter
--- OUTSIDE RECORDS SUMMARY | 2025-02-01 02:04 | XMS_ITS | Encounter Summary ---
Author Organization [facility] Address [address] [place] [address] Care Team Providers Care Stretching Machine Operator Name Role Phone Non-Staff, Physician Primary Care Provider Unava ilable Encounter Details Date Type Department Care Team (Late st Contact Info) Description 08/11/2006 Outpatient Historical [facility] Cardiology Anc[facility] [address] [place] [address] Danie York MD [address] 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 Gender Identity Not on file Sexual Orientation Not on file documented as of this encounter Plan of Treatment Not on file documented as of this encounter Procedures Procedure Name Priority Date/Time Associated Diagnosis Comments NM MYOCARD PERF IMAG SPECT MULT Routine 08/11/2006 1:30 PM CDT NM MYOCARD PERF IMAG SPECT MULT Routine 08/11/2006 1:30 PM CDT documented in this encounter Results * NM MYOCARD PERF IMAG SPECT MULT (08/11/2006 1:30 PM CDT) 08/11/2006 1:30 PM CDT Narrative INTERFACE SYSTEM - 08/11/2006 1:30 PM CDT 08-11-06 MYOCARDIAL PERFUSION SPECTROSCOPY / STRESS AND REST IMAGES: Indication: 1. Atherosclerotic heart disease and known bypass surgery history as well as subsequent percutaneous coronary intervention and drug relating stented RCA in June 2006. 2. Recurrent chest pain. There is a pharmaceutical agent used: Tc-99m (technetium-99m) 11 mCi for rest and 33 mCi for stress. FINDINGS: The planar images demonstrate normal left ventricular dimension with no significant lung uptake. There is minimal motion artifact and overall technically good study. Tomographic images demonstrate homogeneous radiopharmaceutical uptake throughout the myocardium without significant ischemia nor infarct. The gated images demonstrate normal LV ejection fraction and EF of 62%. This is an improvement from ejection fraction of 50% in June. End-diastolic volume is 72 mL and systolic volume is 27 mL. The LV dimension is normal. There is no significant segmental wall motion abnormality. IMPRESSION: 1. Normal LV systolic function and wall motion. 2. No significant ischemia noted. [facility] 738 Dictated By: DANIE YORK Electronically Signed By: DANIE YORK Date Signed: 08/14/06 [facility] Procedure Note 01/21/2009 08-11-06 MYOCARDIAL PERFUSION SPECTROSCOPY / STRESS AND REST IMAGES: Indication: 1. Atherosclerotic heart disease and known bypass surgery history as wellas subsequent percutaneous coronary intervention and drug relating stented RCA in June 2006. 2. Recurrent chest pain. There is a pharmaceutical agent used: Tc-99m (technetium-99m) 11 mCi for rest and 33 mCi for stress. FINDINGS: The planar images demonstrate normal left ventricular dimension with nosignificant lung uptake. There is minimal motion artifact and overall technically good study. Tomographic images demonstrate homogeneous radiopharmaceutical uptakethroughout the myocardium without significant ischemia nor infarct. The gated images demonstrate normal LV ejection fraction and EF of 62%.This is an improvement from ejection fraction of 50% in June. End-diastolic volume is 72 mL andsystolic volume is 27 mL. The LV dimension is normal. There is no significant segmental wall motionabnormality. IMPRESSION: 1. Normal LV systolic function and wall motion. 2. No significant ischemia noted. [facility] 738 Dictated By: DANIE YORK Electronically Signed By: DANIE YORK Date Signed: 08/14/06 [facility] us Chichi SCHMITT ORDERABLES Final Result INTERFACE SYSTEM Refer to clinic/hospital department * NM MYOCARD PERF IMAG SPECT MULT (08/11/2006 1:30 PM CDT) 08/11/2006 1:30 PM CDT Narrative INTERFACE SYSTEM - 08/11/2006 1:30 PM CDT 08-11-06 ADENOSINE STRESS TEST: Because of caffeine ingestion, the treadmill exercise was attempted, but was unsuccessful due to severe bilateral claudication. Therefore, a total of 41.1 mg of adenosine were infused intravenously over 4 minutes and 37 seconds and at 2 minutes and 39 seconds into that infusion a total of 33 mCi of Myoview were injected. The adenosine did induce chest fullness and shortness of breath and nausea with some sweating. The resting heart rate was 79 rising to 105. The resting blood pressure was 116/68 falling to 92/60. ELECTROCARDIOGRAPHIC DATA: The baseline electrocardiogram demonstrated sinus rhythm that appeared to be unremarkable. With adenosine infusion, no pathologic ST segment changes were noted. Nonspecific ST changes were seen with about 05. mm of ST segment depression in lead 3 only. IMPRESSION: 1. Satisfactory adenosine stress test after aborted an attempt to do a treadmill stress test as described above. 2. Myocardial scintigraphy will be reported separately. [facility] 1551 Dictated By: Robinson Puga M.D. Electronically Signed By: Robinson Puga M.D. Date Signed: 08/12/06 [facility] Procedure Note 01/21/2009 08-11-06 ADENOSINE STRESS TEST: Because of caffeine ingestion, the treadmill exercise was attempted, butwas unsuccessful due to severe bilateral claudication. Therefore, a total of 41.1 mg of adenosine wereinfused intravenously over 4 minutes and 37 seconds and at 2 minutes and 39 seconds into that infusiona total of 33 mCi of Myoview were injected. The adenosine did induce chest fullness and shortness ofbreath and nausea with some sweating. The resting heart rate was 79 rising to 105. The resting bloodpressure was 116/68 falling to 92/60. ELECTROCARDIOGRAPHIC DATA: The baseline electrocardiogram demonstrated sinus rhythm that appeared roman unremarkable. With adenosine infusion, no pathologic ST segment changes were noted. Nonspecific STchanges were seen with about 05. mm of ST segment depression in lead 3 only. IMPRESSION: 1. Satisfactory adenosine stress test after aborted an attempt to do atreadmill stress test as described above. 2. Myocardial scintigraphy will be reported separately. [facility] 1551 Dictated By: Robinson Puga M.D. Electronically Signed By: Robinson Puga M.D. Date Signed: 08/12/06 [facility] us Chichi Cheney MD RI ORDERABLES Final Result Performing Organization Address City/State/[facility] Co de Phone Number INTERFACE SYSTEM Refer to clinic/hospital department documented in this encounter Visit Diagnoses Diagnosis Other chest pain- Primary documented in this encounter Care Teams Stretching Machine Operator Relationship Specialty Start Date End Date Non-Staff, Physician NO ADDRESS ON FILE PCP - General 09/01/07 documented as of this encounter
--- OUTSIDE RECORDS SUMMARY | 2025-02-01 02:04 | XMS_ITS | Encounter Summary ---
Author Organization [facility] Address [address] [place] [address] Care Team Providers Care Water Registrar Name Role Phone Non-Staff, Physician Primary Care Provider Unava ilable Encounter Details Date Type Department Care Team (Latest Contact Info) Description 10/21/2006 Outpatient Historical [facility] Cardiology- [place] [address] [place] [address] Danie York MD [address] [facility] [address] [place] [address] Coronary Atherosclerosis of [place] Coronary Artery (Primary Dx); Atheroscler-Limb&Juan Antonio ic (CMS/HCC); Unspecified Hypertensive Heart Disease without Heart Failure; Old Myocardial Infarct Social History Tobacco Use Types Packs/Day Years Used Date Smoking Tobacco: Never Assessed Sex and Gender Information Value Date Recorded Sex Assigned at Not on file 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 Gender Identity Not on file Sexual Orientation Not on file documented as of this encounter Plan of Treatment Not on file documented as of this encounter Visit Diagnoses Diagnosis Coronary atherosclerosis of [place] coronary artery- Primary Atherosclerosis of [place] arteries of the extremities with intermittent claudication Unspecified hypertensive heart disease without heart failure Old myocardial infarct Old myocardial infarction documented in this encounter Care Teams Water Registrar Relationship Specialty Start Date End Date Non-Staff, Physician NO ADDRESS ON FILE PCP - General 09/01/07 documented as of this encounter
--- OUTSIDE RECORDS SUMMARY | 2025-02-01 02:04 | XMS_ITS | Clinical Summary ---
Author Organization [employer] Address [address] [facility] Attn: [place] [address] Care Team Providers Care Contour Sander Name Role Phone Non-Staff, Physician Primary Care Provider Unava ilable Immunizations Immunization Administration Dates Next Due (TDVAX)(7 YRS UP) TETANUS AN D DIPHTHERIA TOXOIDS, ADSORBED (2 LF OF TETANUS TOXOID AND 2 LF OF DIPHTHERIA TOXOID), 0.5ML (PF), IM 11/11/1999 Social History Tobacco Use Types Packs/Day Years Used Date Smoking Tobacco: Some Days Alcohol Use Standard Drinks/Week Comments Yes 0 (1 standard drink = 0.6 oz pur e alcohol) Sex and Gender Information Value Date Recorded Sex Assigned at Not on file Legal Sex Male 12:47 PM 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 Gender Identity Not on file Sexual Orientation Not on file Last Filed Vital Signs Vital Sign Reading Time Taken Comments Blood Pressure 125/76 02/10/2020 11:33 AM 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 Pulse 77 02/10/2020 11:33 AM 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 Temperature - - Respiratory Rate - - Oxygen Saturation - - Inhaled Oxygen Concentration - - Weight 66.7 kg (147 lb) 02/10/2020 11:33 AM 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 Height 167.6 cm (5' 6 ) 02/10/2020 11:33 AM 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 Body Mass Index 23.73 02/10/2020 11:33 AM 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 Plan of Treatment Health Maintenance Due Date Last Done Comments DTAP/TDAP/TD VACCINES (1 - Tdap) 11/12/1999 11/11/19 00 COLORECTAL SCREENING 05/16/2004 Colorectal Cancer Screening 05/16/2004 FIT-DNA Q 3 years 05/16/2004 FIT/FOBT Q 1 year 05/16/2004 Flex Sig/CT Colonography Q 5 years 05/16/2004 PNEUMOCOCCAL VACCINE 50+ YEARS (1 of 1 - PCV) 05/17/19 ZOSTER VACCINE (1 of 2) 05/16/2009 INFLUENZA VACCINE (#1) 2024 RSV VACCINE (60+ or ) (1 - 1-dose 75+ series) 05/16/2034 Care Teams Contour Sander Relationship Specialty Start Date End Date Non-Staff, Physician NO ADDRESS ON FILE PCP - General 09/01/07
--- OUTSIDE RECORDS SUMMARY | 2025-02-01 02:04 | XMS_ITS | Encounter Summary ---
Author Organization [employer] 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 Gender Identity Not on file Sexual Orientation Not on file documented as of this encounter Plan of Treatment Not on file documented as of this encounter Procedures Procedure Name Priority Date/Time Associated Diagnosis Comments POC ACTIVATED CLOTTING TIME Routine 08/27/2006 4:36 PM CDT POC ACTIVATED CLOTTING TIME Routine 08/27/2006 3:35 PM CDT PT AND APTT Routine 08/27/2006 7:05 AM CDT CBC WITHOUT DIFFERENTIAL Routine 08/27/2006 7:05 AM CDT BASIC METABOLIC PANEL Routine 08/27/2006 7:05 AM CDT documented in this encounter Results * POC ACTIVATED CLOTTING TIME (08/27/2006 4:36 PM CDT) ACT POC 142 79 - 149 sec INTERFACE SYSTEM 08/27/2006 4:36 PM CDT us Danie Crisostomo Chela MD POINT OF CARE TESTING Edited Performing Organization Address [facility] Phone Number INTERFACE SYSTEM Refer to clinic/hospital department * (ABNORMAL) POC ACTIVATED CLOTTING TIME (08/27/2006 3:35 PM CDT) ACT POC 174(H) 79 - 149 sec INTERFACE SYSTEM 08/27/2006 3:35 PM CDT Result Nico York MD POINT OF CARE TESTING Edited Performing Organization Address [facility] Phone Number INTERFACE SYSTEM Refer to clinic/hospital department * PT AND APTT (08/27/2006 7:05 AM CDT) Pathologist [facility] PROTIME 15.0 13.0 - 15.7 Secs INTERFACE SYSTEM Comment: As of 05 note change in normal range. INR 1.1 INTERFACE SYSTEM Comment: Expected Values for INR: DVT/PE Goal INR 2.5; range 2.0 - 3.0 Valve Replacement Tissue Goal INR 2.5; range 2.0 - 3.0 Mechanical Goal INR 3.0; range 2.5 - 3.5 POST-CO Goal INR 2.5; range 2.0 - 3.0 or Goal 3.0; range 2.5 - 3.5 Atrial Fibrillation Goal INR 2.5; range 2.0 - 3.0 Ischemic Stroke Goal INR 2.5; range 2.0 - 3.0 For additional information see Guidelines for Anticoagulation available from the pharmacy [facility] Wilson. PTT 29.2 21.6 - 35.6 Secs INTERFACE SYSTEM Comment: Therapeutic Range: Hi-level PE/DVT heparin protocol 80.1 -95.0 sec Lo-level PE/DVT heparin protocol 67.1 - 80.0 sec Cardiac Heparin Protocol 67.1 - 85.0 sec Neuro Heparin Protocol 67.1 - 80.0 sec As of 02/06/2006 note change in APTT Normal Range. 08/27/2006 7:05 AM CDT Result Nico York MD HEMATOLOGY ORDERABLES Edited Performing Organization Address [facility]/ZIP Co de Phone Number INTERFACE SYSTEM Refer to clinic/hospital department * CBC WITHOUT DIFFERENTIAL (08/27/2006 7:05 AM CDT) WBC 8.8 4.5 - 11.0 K/ul INTERFACE SYSTEM RBC 4.74 4.60 - 6.20 Mil/ul INTERFACE SYSTEM HEMOGLOBIN 14.6 14.0 - 18.0 g/dL INTERFACE SYSTEM HEMATOCRIT 41.8 41.0 - 53.0 % INTERFACE SYSTEM MCV 88.2 84.0 - 103.0 Fl INTERFACE SYSTEM MCH 30.8 27.0 - 34.0 pg INTERFACE SYSTEM MCHC 34.9 30.0 - 35.0 g/dL INTERFACE SYSTEM RDW 12.9 11.0 - 14.5 % INTERFACE SYSTEM PLATELETS 150 140 - 440 K/ul INTERFACE SYSTEM MPV 9.7 8.9 - 12.8 Fl INTERFACE SYSTEM NEUTROPHILS 56.0 42.2 - 75.2 % INTERFACE SYSTEM LYMPHOCYTES 33.5 24.0 - 44.0 % INTERFACE SYSTEM MONOCYTES 5.8 2.0 - 10.0 % INTERFACE SYSTEM EOSINOPHILS 4.1 0.0 - 7.0 % INTERFACE SYSTEM BASOPHILS 0.6 0.0 - 1.0 % INTERFACE SYSTEM NEUTROPHIL ABSOLUTE 4.9 2.0 - 8.0 K/ul INTERFACE SYSTEM LYMPHOCYTE ABSOLUTE 2.9 1.2 - 4.0 K/ul INTERFACE SYSTEM MONOCYTE ABSOLUTE 0.5 0.1 - 0.6 K/ul INTERFACE SYSTEM EOSINOPHIL ABSOLUTE 0.4 0.0 - 0.7 K/ul INTERFACE SYSTEM BASOPHILS ABSOLUTE 0.1 0.0 - 0.2 K/ul INTERFACE SYSTEM 08/27/2006 7:05 AM CDT us Danie York MD HEMATOLOGY ORDERABLES Edited INTERFACE SYSTEM Refer to clinic/hospital department * (ABNORMAL) BASIC METABOLIC PANEL (08/27/2006 7:05 AM CDT) GLUCOSE 96 70 - 110 mg/dL INTERFACE SYSTEM BUN 12 9 - 20 mg/dL INTERFACE SYSTEM CREATININE 1.0 0.7 - 1.5 mg/dL INTERFACE SYSTEM SODIUM 139 136 - 145 mEq/L INTERFACE SYSTEM POTASSIUM 4.1 3.5 - 5.0 mEq/L INTERFACE SYSTEM CHLORIDE 107 95 - 110 mEq/L INTERFACE SYSTEM CO2 29 22 - 32 mmol/l INTERFACE SYSTEM CALCIUM 9.4 8.4 - 10.5 mg/dL INTERFACE SYSTEM ANION GAP 7(L) 9 - 20 mEq/L INTERFACE SYSTEM OSMOLALITY, CALCULATED 286 275 - 295 mOsm/Kg INTERFACE SYSTEM 08/27/2006 7:05 AM CDT us Danie York MD CHEMISTRY ORDERABLES Edited INTERFACE SYSTEM Refer to clinic/hospital department documented in this encounter Visit Diagnoses Diagnosis Atherosclerosis of [place] arteries of the extremities with intermittent claudication- Primary documented in this encounter Care Teams Marketing Recruiter Relationship Specialty Start Date End Date Non-Staff, Physician NO ADDRESS ON FILE PCP - General 09/01/07 documented as of this encounter
--- NOTE | 2025-02-01 02:16 | PM.HP ---
Providers/Chief Complaint Admitting Physician: Pastor Sexton MD Primary Care Provider: Bruna Escobedo DO Chief Complaint: cp History of Present Illness Sheldon Isaac Sr is a 64 year old male past medical history significant for continues tobacco abuse, meth use, coronary artery disease, COPD, peripheral arterial disease, hypertension, hyperlipidemia who admits to use of methamphetamine today started having chest pain 3 hours before the arrival he took 324 mg of aspirin when chest pain become unbearable he called EMS, twelve-lead EKG was suggestive of inferior ST elevation MD. He did drop his blood pressure after nitroglycerin given IV fluid. Currently he is in 10 out of 10 chest pain. Medications/Allergies Home Medications ?Medication ?Instructions ?Recorded ?Confirmed ?Last Taken ?Type aspirin 81 mg tablet,delayed 81 mg PO DAILY #90 tabs 08/20/24 Unknown Rx release atorvastatin 40 mg tablet 40 mg PO DAILY #90 tabs 08/20/24 Unknown Rx clopidogrel 75 mg tablet 75 mg PO DAILY #90 tabs 08/20/24 Unknown Rx metoprolol tartrate 25 mg tablet 25 mg PO BID #120 tabs 08/20/24 Unknown Rx spironolactone 25 mg tablet 25 mg PO DAILY #30 tabs 08/20/24 Unknown Rx Allergies Allergy/AdvReac Type Severity Reaction Status Date / Time No Known Allergies Allergy Verified 06/18/24 13:54 PFSH Acute PFSH: Medical History (Updated 02/01/25 @ 03:10 by Pastor Sexton MD) STEMI (ST elevation myocardial infarction) Lung mass Hemorrhoids Opioid contract exists Leriche syndrome COPD (chronic obstructive pulmonary disease) CAD (coronary atherosclerotic disease) PAD (peripheral artery disease) Dyslipidemia HTN (hypertension) Bipolar disorder 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 Myocardial infarct, old Ischemic cardiomyopathy Tobacco abuse Chest pain, atypical Surgical History S/P percutaneous transluminal angioplasty (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 Severe distress HEART: Regular S1 and S2. No murmur, rub or gallop. LUNGS: Clear to auscultate bilaterally. CENTRAL NERVOUS SYSTEM: Grossly nonfocal. EXTREMITIES: Lower extremities with out edema bilaterally. Data 02/01/25 01:43 02/01/25 01:43 A&P Assessment and plan 1. ST elevation (STEMI) myocardial infarction: 2. Tobacco abuse counselin. HTN (hypertension): 4. Dyslipidemia: 5. CAD (coronary atherosclerotic disease): 6. CHF (congestive heart failure): Plan: Given inferior wall ST elevation MD will proceed with urgent left heart cath/PCI if indicated. Patient has been loaded with Brilinta aspirin and 4000 units of heparin. Patient has been explained all risk-benefit and alternative for the procedure. He understood and would like to proceed with it. PDMP PDMP Reviewed: Not Reviewed Attestations Medical Necessity Statement*: I am expecting his stay to cross more than 2 midnights. Coding Level of Care Code Acute Code for [facility] Fwd Diagnoses ST elevation (STEMI) myocardial infarction I21.3 Tobacco abuse counseling Z71.6 HTN (hypertension) I10 Dyslipidemia E78.5 CAD (coronary atherosclerotic disease) I25.10 CHF (congestive heart failure) I50.9
[2025-02-01 02:17] LABS: Troponin(5th) Baseline 28 ng/L (0-15)
[2025-02-01 02:20] LABS: Alanine Aminotransferase 30 U/L (0-41); Albumin Level 4.2 g/dL (3.5-5.2); Alkaline Phosphatase 96 U/L (40-130); Anion Gap 18.5 (5-19); Aspartate Amino Transferase 19 U/L (0-40); Blood Urea Nitrogen 11 mg/dL (8-23); Calcium 9.0 mg/dL (8.5-10.5); Carbon Dioxide 24 mmol/L (22-29); Chloride 101 mmol/L (98-107); Globulin 2.8 g/dL (1.3-4.6); Glucose 181 mg/dL (65-115); Lipase 28 U/L (13-60); Osmolality Calculated 294 mOsm/kg (285-295); Potassium 3.5 mmol/L (3.5-5.1); Sodium 140 mmol/L (136-145); Total Protein 7.0 g/dL (6.6-8.7)
[2025-02-01 02:25] LABS: NT Pro B Type Natriuretic Pept 253 pg/mL (0-125)
--- NOTE | 2025-02-01 03:10 | USCV_ITS ---
Sheldon Isaac Age: 64 Gender: M : 1960 Exam Date: 02/01/2025 03:52 Ordering Phys: Pastor Sexton MD ([email or web address]) Technologist: VARINDER Exam Location: [facility] Indication: stemi, long-term smoker continues smoking, history of methamphetamine abuse, History of CAD, COPD, PAD, HTN, HL BP: 101 / 70 HR: 84 Rhythm: Sinus Technical Quality: Adequate MEASUREMENTS (Male / Female) Normal Values 2D ECHO LV Diastolic Diameter PLAX 4.6 cm 4.2 - 5.9 / 3.9 - 5.3 cm IVS Diastolic Thickness 1.5 cm 0.6 - 1.0 / 0.6 - 0.9 cm IVS Systolic Thickness 1.8 cm LVPW Diastolic Thickness 1.5 cm 0.6 - 1.0 / 0.6 - 0.9 cm LVPW Systolic Thickness 1.3 cm LVOT Diameter 1.6 cm LV Ejection Fraction 2D Teich 47.8 % LV Ejection Fraction MOD 4C 31.1 % LV Ejection Fraction MOD 2C 25.8 % LV Ejection Fraction 2C AL 26.8 % LA Diameter 3.1 cm Aorta at Sinotubular Diameter 2.2 cm IVC Diameter 2.0 cm DOPPLER AV Peak Velocity 121.0 cm/s LVOT Peak Velocity 94.0 cm/s AV Area Cont Eq vti 1.3 cm squared AV Area Cont Eq pk 1.6 cm squared MV Peak Velocity 95.0 cm/s MV Area PHT 4.7 cm squared Mitral E to A Ratio 1.2 TV Peak E Velocity 38.0 cm/s PV Peak Velocity 111.0 cm/s FINDINGS Left Ventricle Mildly increased left ventricular cavity size. Moderately decreased left ventricular systolic function. Left ventricular ejection fraction is estimated at 40 %. There appeared to be mid to distal anterior septal and apical akinesis suggestive of ischemic cardiomyopathy and infarction in LAD territory. Given thinning of mid to distal anterior apical wall it appeared to be a chronic.Grade I/IV diastolic dysfunction (abnormal relaxation filling pattern), normal to mildly elevated filling pressures. Right Ventricle Normal right ventricular size and systolic function. Right Atrium Normal right atrial size. Left Atrium Normal left atrial size. IA Septum Normal appearance of the interatrial septum. Mitral Valve Moderately thickened mitral valve. No mitral valve stenosis. Mild mitral valve regurgitation. Aortic Valve Moderate aortic valve calcification. No aortic valve stenosis. No aortic valve regurgitation. Tricuspid Valve Normal tricuspid valve structure. No tricuspid valve stenosis or regurgitation. Normal pulmonary pressure. Pulmonic Valve Normal pulmonic valve structure. No pulmonic valve stenosis or regurgitation. Pericardium No pericardial effusion. Aorta Normal diameter of the aortic root and ascending thoracic aorta. IVC Normal IVC diameter. CONCLUSIONS Mildly increased left ventricular cavity size. Moderately decreased left ventricular systolic function. Left ventricular ejection fraction is estimated at 40 %. There appeared to be mid to distal anterior septal and apical akinesis suggestive of ischemic cardiomyopathy and infarction in LAD territory. Given thinning of mid to distal anterior apical wall it appeared to be a chronic.Grade I/IV diastolic dysfunction (abnormal relaxation filling pattern), normal to mildly elevated filling pressures. No significant valvular abnormalities. There is no pericardial effusion. Right atrial pressure is around 5 mm of mercury. Pastor Sexton MD (Electronically Signed) Final Date: 01 February 2025 18:06 S
--- NOTE | 2025-02-01 03:11 | PM.PROC ---
Procedure Note: Date of procedure: 02/01/25 Pre-procedure diagnosis: stemi Post-procedure diagnosis: same Procedure: Urgent left heart cath was performed Left Main: No significant LAD appeared to be chronically occluded at the ostium with prior stent Left circumflex nondominant without significant stenosis RCA is a culprit vessel with 100% occlusion in the midsegment Due to instability of the patient we proceeded with balloon angioplasty followed by stent placement in the mid RCA postdilated with noncompliant balloon. Excellent angiographic result with NITZA-3 flow was achieved. Patient on table was not cooperative and Moving around However with Somewhat Difficulty We Were Able to Complete the Procedure. Since LAD Appeared to Be Chronically Occluded We Will Plan to Manage It Medically and to Further investigate it with viability study before referring patient for revascularization if indicated. Patient was loaded with Brilinta 180 mg in the ER. Will continue Brilinta 90 mg p.o. twice daily along with 81 mg of aspirin from tomorrow. Continue aspirin and statin. IV fluid for 5 hours. If patient becomes short of breath may will give him 40 mg of IV Lasix because of high LVEDP of 34 mmHg Plan: Radial band protocol in place. Full note to be dictated Coding Level of Care Code Acute Code for Katarzyna Ruth
[2025-02-01 04:15] LABS: Troponin 5 2HR 139.2 ng/L (0-15); Troponin 5 2HR Delta 111.2 ABS# (0-10)
--- NOTE | 2025-02-01 05:55 | ECG_ITS ---
[facility] Test Date: 2025-02-01 Pat Name: Sheldon Isaac Department: Room: ICU03 Gender: Male Csr Technician: : 1960 Requested By: Ap Lake Order Number: [id number] Diane MD: Bebeto Magdaleno M.D. Measurements Intervals [place] Rate: 85 P: 62 MT: 155 QRS: 94 QRSD: 109 T: -46 QT: 379 QTc: 452 Interpretive Statements SINUS RHYTHM WITH FREQUENT VENTRICULAR PREMATURE COMPLEXES WITH OCCASIONAL SUPRAVENTRICULAR PREMATURE COMPLEXES BORDERLINE RIGHT AXIS DEVIATION [QRS AXIS > 90] MODERATE T-WAVE ABNORMALITY, CONSIDER INFERIOR ISCHEMIA [-0.1+ mV T-WAVE IN II/aVF] Compared to ECG 02/01/2025 01:51:12 Ventricular premature complex(es) now present T-wave abnormality now present Possible ischemia now present Myocardial infarct finding no longer present Electronically Signed On 02-01-2025 20:53:17 FARM EQUIPMENT MECHANIC by Bebeto Magdaleno M.D. [id number]
[2025-02-01 06:37] LABS: Troponin 5 6HR 540.7 ng/L (0-15); Troponin 5 6HR Delta 512.7 ng/L (0-12)
[2025-02-01 07:33] LABS: Magnesium 2.0 mg/dL (1.7-2.3)
--- NOTE | 2025-02-01 07:46 | ECG_ITS ---
[facility]: [facility]25[facility]01 Pat Name: Sheldon Isaac Department: Room: ICU03 Gender: Male Diabetes Educator: : 1960 Requested By: Ap Lake Order Number: [id number] Diane MD: Bebeto Magdaleno M.D. Measurements Intervals [place] Rate: 74 P: 61 [place]: 160 QRS: 94 QRSD: 99 T: -31 QT: 402 QTc: 448 Interpretive Statements SINUS RHYTHM WITH OCCASIONAL VENTRICULAR PREMATURE COMPLEXES WITH OCCASIONAL SUPRAVENTRICULAR PREMATURE COMPLEXES BORDERLINE RIGHT AXIS DEVIATION [QRS AXIS > 90] POSSIBLE INFERIOR MYOCARDIAL INFARCTION , OF INDETERMINATE AGE [30 ms Q WAVE IN II/aVF] Compared to ECG 02/01/2025 05:55:11 Myocardial infarct finding now present T-wave abnormality no longer present Possible ischemia no longer present Electronically Signed On 02-01-2025 20:52:44 PRODUCTION DEPARTMENT SUPERVISOR by Bebeto Magdaleno M.D. [email or web address] [id number]
--- NOTE | 2025-02-01 09:37 | PC.PHAR ---
Patient states he took his medication maybe last . Patient states he hasn't been able to make it to the doctor or to [facility] to get a refill . I spoke with the Pharmacist at [facility] and he states last fill was 09/13/24 90days , and there hasn't been any calls for refills and patient should be out of his medication.
--- NOTE | 2025-02-01 12:58 | P.PN_ITS ---
<Statement entered by Pastor Sexton MD - 02/02/25 18:57> Patient was evaluated and cared for in conjunction with an advanced practice practitioner. I personally examined the patient and reviewed the chart and all pertinent data including imaging, telemetry, and laboratory results. I discussed the patient in detail with the advanced practice practitioner. Please see their note for complete H&P testing result and agreed upon plan of care for the patient Subjective 2 Subjective: Patient doing well today. Cath site looks good. Denies chest pain or shortness of breath. Labs are stable. Blood pressure still soft but patient is stable. Vitals/I&O/Wt Last Vital Signs Temp 97.4 F L 02/01/25 01:43 Pulse 90 02/01/25 06:00 Resp 16 02/01/25 05:45 BP 95/57 02/01/25 05:45 Pulse Ox 93 02/01/25 05:30 O2 Del Method Nasal Cannula 02/01/25 03:47 O2 Flow Rate 3 02/01/25 03:47 01/31/25 02/01/25 02/01/25 22:59 06:59 14:59 Intake Total 0 / 0 1500 / 1500 Output Total 0 / 0 Balance 0 / 0 1500 / 1500 Weight last 48 hrs Weight 182 lb Weight 182 lb Weight 170 lb Physical Exam 2 Narrative: General: No apparent distress, healthy appearing, well nourished HENMT: normoceophalic Muskuloskeletal: Full ROM Respiratory: Normal respiratory effort, clear to auscultation bilaterally throughout all lung armstrong, no use of accessory muscles Cardio: No JVD, regular rate, regular rhythm, S1 S2 normal, no murmurs, peripheral pulses 2+ radial palpated bilaterally GI: Normal to inspection, nondistended Extremities: Full ROM, normal, normal capillary refill, no cyanosis or edema Neuro: Alert and oriented x4, no focal motor deficits Psych: Affect normal, denies suicidal ideation, mental status grossly normal Skin: Right radial cath site clean, dry, intact w/o s/s of hematoma Data 02/01/25 01:43 02/01/25 01:43 A&P Assessment and plan 1. ST elevation (STEMI) myocardial infarction: 2. Tobacco abuse counselin. HTN (hypertension): 4. Dyslipidemia: 5. CAD (coronary atherosclerotic disease): 6. CHF (congestive heart failure): Plan: Inferior STEMI requiring stent to the RCA. LAD chronically occluded. Viability study in the future. Echo pending. continue Brilinta and Aspirin. Continue statin therapy. If patient continues to remain stable, may discharge home tomorrow. PDMP PDMP Reviewed: Not Reviewed Attestations 2 Medical Necessity Statement*: I am expecting his stay to cross more than 2 midnights due to inferior wall STEMI requiring emergent cath and stent to the RCA. Coding Level of Care Code Acute Code for [facility] Diagnoses ST elevation (STEMI) myocardial infarction I21.3 Tobacco abuse counseling Z71.6 HTN (hypertension) I10 Dyslipidemia E78.5 CAD (coronary atherosclerotic disease) I25.10 CHF (congestive heart failure) I50.9
--- NOTE | 2025-02-01 14:01 | PC.NURSE ---
Addendum entered by Josias Mata RN 02/01/25 14:07: This nurse witnessed the patient saying that he wanted his code status to be AND. Original Note: Code Status: while going over admission assessments, code status was discussed with the patient. He wants his code status to be AND. States that he wants to receive all treatments available, but if he ends up passing away, he does not want us to attempt to resuscitate him. Conversation witnessed by Arlene Silvestre RN. Changed code status form full code to Do not resuscitate.
--- NOTE | 2025-02-01 18:36 | PC.NURSE ---
Shift SUmmary: Uneventful shift, rested in a recliner for most of the day. Has walked about 300 feet total without difficulty, no abormal heart rythm or rate observed during ambulation. total urine output: approximately 700mL
[2025-02-02] VITALS (27 sets, daily range): BP systolic 110–147; BP diastolic 56–75; PULSE 71–96; RESP 12–32; O2SAT 87–97
[2025-02-02 06:11] LABS: Hematocrit 43.3 % (37-53); Hemoglobin 14.80 g/dL (11.27-16.99); Mean Corpuscular HGB Conc 34.2 g/dL (30-55); Mean Corpuscular Hemoglobin 30.4 pg (27-33); Mean Corpuscular Volume 88.9 fl (82-101); Nucleated Red Blood Cells % 0 %; Platelet Count 161 10^3/cmm (157-399); Red Blood Count 4.87 10^6/uL (3.85-5.65); White Blood Count 10.98 10^3/uL (3.29-11.43)
[2025-02-02 06:30] LABS: Blood Urea Nitrogen 10 mg/dL (8-23); Calcium 8.7 mg/dL (8.5-10.5); Carbon Dioxide 24 mmol/L (22-29); Chloride 101 mmol/L (98-107); Glucose 109 mg/dL (65-115); Osmolality Calculated 282 mOsm/kg (285-295); Sodium 136 mmol/L (136-145)
[2025-02-02 06:37] LABS: Anion Gap 14.7 (5-19); Potassium 3.7 mmol/L (3.5-5.1)
--- NOTE | 2025-02-02 14:09 | PC.NURSE ---
Patient discharged. REveiwed medications changes, new upcominig appointments, and post cath safety. IV removed. Patient signature form signed. Patient was waiting on a ride and requested to leave the unit to wait. NUrse took patient to the discharge lounge via wheelchair.
--- NOTE | 2025-02-02 15:24 | P.DS_ITS ---
<Statement entered by Pastor Sexton MD - 02/02/25 17:27> Patient was evaluated and cared for in conjunction with an advanced practice practitioner. I personally examined the patient and reviewed the chart and all pertinent data including imaging, telemetry, and laboratory results. I discussed the patient in detail with the advanced practice practitioner. Please see their note for complete H&P testing result and agreed upon plan of care for the patient. Patient would like to go home he would not like to stay. He is chest pain free. Because of economic issues we will switch him back to Plavix he is being loaded with Plavix Advised to keep dual antiplatelet therapy GENERAL: Patient is alert, awake and oriented x3. HEART: Regular S1 and S2. No murmur, rub or gallop. LUNGS: Clear to auscultate bilaterally. CENTRAL NERVOUS SYSTEM: Grossly nonfocal. EXTREMITIES: Lower extremities with out edema bilaterally. Assessment and plan ST elevation [place] Noncompliant Drug abuse Congestive heart failure Continue dual clopidogrel apixaban statin beta-crys and amiodarone. Add Entresto. Advised quitting smoking and drug and being compliant Discharge Providers Date of Admission: 02/01/25 03:28 Date of Discharge: February 02, 2025 Attending Provider at Admission: Pastor Sexton MD Attending Provider at Discharge: Pastor Sexton MD Primary Care Provider: Bruna Escobedo DO Diagnoses at Discharge Discharge Diagnosis 1. ST elevation (STEMI) myocardial infarction: 2. Tobacco abuse counselin. HTN (hypertension): 4. Dyslipidemia: 5. Atherosclerosis of [place] coronary artery of [place] heart without angina pectoris: 6. CHF (congestive heart failure): Reason for Visit Reason for Visit: cp Brief History: Sheldon Isaac Sr is a 64 year old male past medical history significant for continues tobacco abuse, meth use, coronary artery disease, COPD, peripheral arterial disease, hypertension, hyperlipidemia who admits to use of methamphetamine today started having chest pain 3 hours before the arrival he took 324 mg of aspirin when chest pain become unbearable he called EMS, twelve- lead EKG was suggestive of inferior ST elevation [place]. He did drop his blood pressure after nitroglycerin given IV fluid. Currently he is in 10 out of 10 chest pain. Hospital Course Hospital Course Patient underwent left heart cath due to inferior STEMI and received a stent to the RCA in the mid segment. He was loaded with Brilinta and was continued on Brilinta 90 twice daily. He tolerated the procedure well with no complications. On discharge Brilinta was going to be too expensive so he was loaded with Plavix and will be sent home on Plavix and aspirin as well as statin therapy and continued home meds. Follow-up in the clinic to be done in 1 week. I stressed to him that it is very important that he does not miss his aspirin or Plavix as this could result in a major heart attack or stent thrombosis. He verbalized full understanding. Physical Exam Narrative: General: No apparent distress, healthy appearing, well nourished HENMT: normoceophalic Muskuloskeletal: Full ROM Respiratory: Normal respiratory effort, clear to auscultation bilaterally throughout all lung armstrong, no use of accessory muscles Cardio: No JVD, regular rate, regular rhythm, S1 S2 normal, no murmurs, p eripheral pulses 2+ radial palpated bilaterally GI: Normal to inspection, nondistended Extremities: Full ROM, normal, normal capillary refill, no cyanosis or edema Neuro: Alert and oriented x4, no focal motor deficits Psych: Affect normal, denies suicidal ideation, mental status grossly normal Skin: Right radial cath site clean, dry, intact w/o s/s of hematoma Discharge Data Studies Completed and Pending Completed Studies During Hospitalization Category Date Time Status XR chest 1V portable [id number] Stat Exams 02/01/25 01:46 Completed CV. echo complete* [id number] Routine Ultrasound 02/01/25 03:10 Completed Pending at discharge Category Date Time Status PASTRYCOOK'S ASSISTANT request for service Stat Exams 02/01/25 02:05 Taken Radiology Impressions Chest X-Ray 02/01/25 01:46 IMPRESSION: Mild pulmonary vascular prominence, which may represent a component of pulmonary vascular congestion. Otherwise, no acute pulmonary process. Laboratory Results WBC 10.98 10^3/uL (3.29-11.43) 02/02/25 04:55 RBC 4.87 10^6/uL (3.85-5.65) 02/02/25 04:55 Hgb 14.80 g/dL (11.27-16.99) 02/02/25 04:55 Hct 43.3 % (37-53) 02/02/25 04:55 MCV 88.9 fl (82-101) 02/02/25 04:55 MCH 30.4 pg (27-33) 02/02/25 04:55 MCHC 34.2 g/dL (30-55) 02/02/25 04:55 RDW 12.1 % (12.1-15.1) 02/02/25 04:55 Plt Count 161 10^3/cmm (157-399) 02/02/25 04:55 MPV 9.6 fL (7.4-10.4) 02/02/25 04:55 Neut % (Auto) 71.7 % 02/02/25 04:55 Lymph % (Auto) 19.6 % 02/02/25 04:55 [place] % (Auto) 6.3 % 02/02/25 04:55 Eos % (Auto) 1.5 % 02/02/25 04:55 Baso % (Auto) 0.5 % 02/02/25 04:55 Neut # (Auto) 7.88 10^3/uL (1.8-7.7) H 02/02/25 04:55 Lymph # (Auto) 2.2 10^3/uL (0.8-4.8) 02/02/25 04:55 [place] # (Auto) 0.7 10^3/uL (0.2-0.9) 02/02/25 04:55 Eos # (Auto) 0.2 10^3/uL (0.0-0.8) 02/02/25 04:55 Baso # (Auto) 0.1 10^3/uL (0.0-0.1) 02/02/25 04:55 Nucleated RBC % (auto) 0 % 02/02/25 04:55 Nucleated RBCs # 0.0 /100WBC 02/02/25 04:55 PT 13.30 SECONDS (12.1-14.9) 02/01/25 01:43 INR 0.95 (0.8-1.2) 02/01/25 01:43 APTT 27.4 SECONDS (23.9-36.7) 02/01/25 01:43 Sodium 136 mmol/L (136-145) 02/02/25 04:55 Potassium 3.7 mmol/L (3.5-5.1) 02/02/25 04:55 Chloride 101 mmol/L (98-107) 02/02/25 04:55 Carbon Dioxide 24 mmol/L (22-29) 02/02/25 04:55 Anion Gap 14.7 (5-19) 02/02/25 04:55 BUN 10 mg/dL (8-23) 02/02/25 04:55 Creatinine 0.9 mg/dL (0.7-1.2) 02/02/25 04:55 GFR Calculation 84.7 mL/min (90-130) L 02/02/25 04:55 Glucose 109 mg/dL (65-115) 02/02/25 04:55 Calculated Osmolality 282 mOsm/kg (285-295) L 02/02/25 04:55 Calcium 8.7 mg/dL (8.5-10.5) 02/02/25 04:55 Phosphorus 2.3 mg/dL (2.5-4.5) L 02/01/25 05:50 Magnesium 2.0 mg/dL (1.7-2.3) 02/01/25 05:50 Total Bilirubin 0.4 mg/dL (0.15-1.2) 02/01/25 01:43 AST 19 U/L (0-40) 02/01/25 01:43 ALT 30 U/L (0-41) 02/01/25 01:43 Alkaline Phosphatase 96 U/L (40-130) 02/01/25 01:43 Troponin T Baseline 28 ng/L (0-15) H 02/01/25 01:43 Troponin T 120 Minute 139.2 ng/L (0-15) H 02/01/25 03:45 Delta Troponin T 111.2 ABS# (0-10) H* 02/01/25 03:45 Troponin T Hi Sens 6Hr 540.7 ng/L (0-15) H 02/01/25 05:50 Troponin T Hi Sens 6Hr Delta 512.7 ng/L (0-12) H* 02/01/25 05:50 NT-Pro-B Natriuret Pep 253 pg/mL (0-125) H 02/01/25 01:43 Total Protein 7.0 g/dL (6.6-8.7) 02/01/25 01:43 Albumin 4.2 g/dL (3.5-5.2) 02/01/25 01:43 Globulin 2.8 g/dL (1.3-4.6) 02/01/25 01:43 Lipase 28 U/L (13-60) 02/01/25 01:43 Procedures Performed Date of procedure: 02/01/25 Pre-procedure diagnosis: stemi Post-procedure diagnosis: same Procedure: Urgent left heart cath was performed Left Main: No significant LAD appeared to be chronically occluded at the ostium with prior stent Left circumflex nondominant without significant stenosis RCA is a culprit vessel with 100% occlusion in the midsegment Due to instability of the patient we proceeded with balloon angioplasty followed by stent placement in the mid RCA postdilated with noncompliant balloon. Excellent angiographic result with NITZA-3 flow was achieved. Patient on table was not cooperative and Moving around However with Somewhat Difficulty We Were Able to Complete the Procedure. Since LAD Appeared to Be Chronically Occluded We Will Plan to Manage It Medically and to Further investigate it with viability study before referring patient for revascularization if indicated. Patient was loaded with Brilinta 180 mg in the ER. Will continue Brilinta 90 mg p.o. twice daily along with 81 mg of aspirin from tomorrow. Continue aspirin and statin. Vitals Last Vital Signs Temp 97.4 F L 02/01/25 01:43 Pulse 78 02/02/25 12:17 Resp 21 H 02/02/25 12:17 BP 116/56 02/02/25 12:17 Pulse Ox 97 02/02/25 12:17 O2 Del Method Nasal Cannula 02/02/25 08:27 O2 Flow Rate 2 02/02/25 08:27 Discharge Plan Discharge Patient Disposition: Home Condition: Stable Prescriptions: New atorvastatin [Lipitor] 80 mg tablet 80 mg PO BEDTIME Qty: 90 0RF Continued spironolactone 25 mg tablet 25 mg PO DAILY Qty: 30 0RF aspirin 81 mg Tablet,Delayed Release (Dr/Ec) 81 mg PO DAILY Qty: 90 3RF clopidogrel 75 mg Tablet 75 mg PO DAILY Qty: 90 3RF metoprolol tartrate 25 mg tablet 25 mg PO BID Qty: 120 3RF Discontinued atorvastatin 40 mg tablet 40 mg PO DAILY Qty: 90 3RF Discharge Order = DC NOW: Discharge Order (Routine); Ordered 02/02/25 Ordered By: Malu Conde Referrals: Bruna Escobedo DO [Primary Care Provider, [facility]] Referral Note: We have notified your physician's clinic of the need for a follow-up appointment to be scheduled. If you have not heard from them within the next 2 business days, please call them directly. Have left message for clinic to call you ,but if you did not here from them please call number on your discharge instructions. Important to call for this appointment ! Sara Quevedo FNP [Nurse Practitioner, Cardiology] - 02/16/25 8:30 am Discharge Diet: Regular and Cardiac Patient Instructions: Atorvastatin (By mouth), Heart Attack (DC), How to Stop Smoking (DC), Heart Healthy Diet (DC), Cigarette Smoking and Your Health (GEN), Coronary Intravascular Stent Placement (DC), Coronary Angioplasty (DC), Chest Pain Stoplight, Opioid Safety, Post Angiogram Home Care Instructions, Post Heart Attack Stoplight, Patient Portal & Katina Instructions Activity Restrictions/Additional Instructions: Discussed with patient no heavy lifting more than a gallon of milk 3 days. No driving for 1 day. Monitor for and report signs or symptoms of bleeding. Monitor for and report s/s of infection such as fever 101 or greater, swelling, redness or pain to the wrist. Plan of Treatment: Continue aspirin and Plavix do not miss doses continue metoprolol 25 twice daily, home spironolactone, aspirin and atorvastatin 80 mg. Discharge Attestations Time Spent in Discharge Care*: less than 30 min Quality Metrics Clinical Quality Measures [ No reported AMI, CVA or VTE this stay] Coding Level of Care Code Acute Code for [facility] Diagnoses ST elevation (STEMI) myocardial infarction I21.11 Involved coronary artery: right coronary artery Tobacco abuse counseling Z71.6 HTN (hypertension) I10 Dyslipidemia E78.5 Atherosclerosis of [place] coronary artery of [place] heart without angina pectoris I25.10 Coronary Disease-Associated Artery/Lesion type: [place] artery [place] vs. transplanted heart: [place] heart Associated angina: without angina CHF (congestive heart failure) I50.9
== END 2025-02-02 14:10 | disposition home or self-care (01) | DRG 322 ==
LOC: ER 02:01 → CCL 02:12 → ICU 03:28
PROVIDERS: Admitting Provider Internal Medicine Cardiovascular Disease; Emergency Provider Student in an Organized Health Care Education/Training Program; PCP Family Medicine; Visit Provider Internal Medicine Cardiovascular Disease
PROC: 027034Z Dilation of Coronary Artery, One Artery with Drug-eluting Intraluminal Device, Percutaneous Approach (ICD-10-PCS; principal; 2025-02-01 02:00)
PROC: 027034Z Dilation of Coronary Artery, One Artery with Drug-eluting Intraluminal Device, Percutaneous Approach (ICD-10-PCS; 2025-02-01 02:00)
DX: I21.11 ST elevation (STEMI) myocardial infarction involving right coronary artery (principal); I25.10 Atherosclerotic heart disease of native coronary artery without angina pectoris; F15.10 Other stimulant abuse, uncomplicated; I11.0 Hypertensive heart disease with heart failure; I50.9 Heart failure, unspecified; F17.200 Nicotine dependence, unspecified, uncomplicated; J44.9 Chronic obstructive pulmonary disease, unspecified; I73.9 Peripheral vascular disease, unspecified; E78.5 Hyperlipidemia, unspecified; I25.5 Ischemic cardiomyopathy; N52.9 Male erectile dysfunction, unspecified; F31.9 Bipolar disorder, unspecified; I25.2 Old myocardial infarction; Z79.02 Long term (current) use of antithrombotics/antiplatelets; Z79.82 Long term (current) use of aspirin; Z91.141 Patient's other noncompliance with medication regimen due to financial hardship
CPT/HCPCS: 36415; 71045; 80048; 80053; 83690; 83735; 83880; 84100; 84484; 85025; 85347; 85610; 85730; 93005; 93306; 93458; 96374; 96375; 99152; 99153; 99285; 99291; C1725; C1769; C1874; C1887; C1894; C9606; J0461; J1644; J2250; J2405; J3010; J3490; J7030; J9999; Q9967

== ENCOUNTER 2025-02-05 03:16 | Inpatient (IN) | payer MEDICARE, MEDICAID, SELFPAY ==
[2025-02-05] VITALS (91 sets, daily range): BP systolic 113–182; BP diastolic 59–93; PULSE 55–94; RESP 0–32; TEMP 36.1–36.8; O2SAT 86–100; BMI 27.4; BMI 28.9
--- NOTE | 2025-02-05 03:24 | ECG_ITS ---
[facility] Date: 2025[facility]05 Pat Name: Sheldon Isaac Department: Room: Gender: Male Social Media Assistant: : 1960 Requested By: Dustin Back Order Number: [id number] Diane MD: ROSIE EPPERSON Measurements Intervals [place] Rate: 61 P: 77 DC: 149 QRS: 104 QRSD: 115 T: -25 QT: 386 QTc: 392 Interpretive Statements SINUS RHYTHM RIGHT AXIS DEVIATION [QRS AXIS > 100] MODERATE INTRAVENTRICULAR CONDUCTION DELAY [110+ ms QRS DURATION] ST ELEVATION, CONSIDER ANTERIOR INJURY [MARKED ST ELEVATION W/O NORMALLY INFLECTED T-WAVE IN V2-V5] ST ELEVATION, CONSIDER INFERIOR INJURY [MARKED ST ELEVATION W/O NORMALLY INFLECTED T-WAVE IN II/aVF] ACUTE TN Compared to ECG 02/01/2025 08:53:27 Intraventricular conduction delay now present ST (T wave) deviation now present Electronically Signed On 02-05-2025 18:39:08 FLIGHT TEST DATA ACQUISITION TECHNICIAN by ROSIE EPPERSON [id number]
--- NOTE | 2025-02-05 03:24 | XRR_ITS ---
PROCEDURE INFORMATION: Exam: XR Chest Exam date and time: 02/05/2025 3:14 AM Age: 64 years old Clinical indication: Chest pressure; Prior surgery; Surgery date: 6+ months; Surgery type: Coronary stents; C/O chest pain; Additional info: Cp TECHNIQUE: Imaging protocol: Radiologic exam of the chest. Views: 1 view. COMPARISON: CR (CHEST, ) 02/01/2025 1:46 AM FINDINGS: Lungs: Unremarkable. No consolidation. Pleural spaces: Unremarkable. No pleural effusion. No pneumothorax. Heart/Mediastinum: Unremarkable. No cardiomegaly. Bones/joints: Unremarkable. XR/XR chest 1V portable [id number] IMPRESSION: No acute findings.
[2025-02-05 03:35] LABS: Hematocrit 47.5 % (37-53); Hemoglobin 16.40 g/dL (11.27-16.99); Mean Corpuscular HGB Conc 34.5 g/dL (30-55); Mean Corpuscular Hemoglobin 30.3 pg (27-33); Mean Corpuscular Volume 87.6 fl (82-101); Nucleated Red Blood Cells % 0 %; Platelet Count 163 10^3/cmm (157-399); Red Blood Count 5.42 10^6/uL (3.85-5.65); White Blood Count 11.33 10^3/uL (3.29-11.43)
[2025-02-05] MEDS: heparin 5,000 unit/mL INJ 1 mL 4000 UNIT IVP (03:39)
[2025-02-05] MEDS: morphine 4 mg/mL SDV 1 mL IVP (03:40)
[2025-02-05] MEDS: ondansetron 2 mg/ML SDV 2 mL 4 MG IVP (03:40)
--- NOTE | 2025-02-05 03:40 | W.ED.CHESTPA ---
HPI - Chest Pain General: Chief Complaint: Chest Pain Stated Complaint: CP Time Seen by Provider: 02/05/25 03:18 History of Present Illness: 64-year-old male patient with history of methamphetamine abuse, coronary disease, status post stent to his RCA for a 100% mid artery lesion 5 days ago. He presents with crushing chest pain that started minutes before arrival. Evidently he was eating a doughnut at the time his pain started he complains of pain that has persisted. Shortness of breath he claims that he ran out of his a couple of days ago and had not taken it. He denies fever or cough. He repeatedly asks to roll over as he thinks it will help his pain. Related Data Previous Rx's ?Medication ?Instructions ?Recorded spironolactone 25 mg tablet 25 mg PO DAILY #30 tabs 08/20/24 aspirin 81 mg tablet,delayed 81 mg PO DAILY #90 tabs 02/02/25 release atorvastatin 80 mg tablet (Lipitor) 80 mg PO BEDTIME #90 tabs 02/02/25 clopidogrel 75 mg tablet 75 mg PO DAILY #90 tabs 02/02/25 metoprolol tartrate 25 mg tablet 25 mg PO BID #120 tabs 02/02/25 Allergies Allergy/AdvReac Type Severity Reaction Status Date / Time No Known Allergies Allergy Verified 06/18/24 13:54 PFSH ED PFSH: Medical History STEMI (ST elevation myocardial infarction) Lung mass Hemorrhoids Opioid contract exists Leriche syndrome COPD (chronic obstructive pulmonary disease) CAD (coronary atherosclerotic disease) PAD (peripheral artery disease) Dyslipidemia HTN (hypertension) Bipolar disorder 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 Myocardial infarct, old Ischemic cardiomyopathy Tobacco abuse Chest pain, atypical Surgical History S/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) Family History Father Cancer Social History Smoking and tobacco/nicotine status: current every day tobacco/nicotine user Alcohol intake: never Substance/Drug Use: current Current gender identity: Male Physical Exam Const: GENERAL APPEARANCE: in distress and ill appearing; not frail appearing HENMT: COMMON NORMALS: normocephalic, atraumatic and Normal external nose present HEAD & SCALP: normocephalic and atraumatic FACE & SINUS: normal facial exam and face symmetric NOSE: Normal external nose present Eye: COMMON NORMALS: Equal, round and reactive pupils present and EOMs intact bilaterally PUPIL: Yes Equal, round and reactive pupils present Neck/C-Spine: GENERAL: Yes trachea midline Chest: CHEST: Yes Symmetrical chest wall rise Resp: COMMON NORMALS: normal respiratory effort, No retractions, No use of accessory muscles and clear to auscultation bilaterally AUSCULTATION: clear to auscultation bilaterally Cardio: COMMON NORMALS: regular rhythm RATE: bradycardic RHYTHM: regular rhythm GI: COMMON NORMALS: Normal to inspection, nondistended, normoactive bowel sounds present Extremity: COMMON NORMALS: no pedal edema Neuro: SAIMA COMA SCALE: document GCS findings Saima coma scale eye opening: Spontaneous Saima coma scale verbal response: Orientated [place] coma scale motor response: Obey commands [place] coma scale total score: 15 SENSORY EXAM: Yes extremities (intact) Psych: COMMON NORMALS: speech normal SPEECH: Yes normal speech Skin: COMMON NORMALS: no rashes or lesions noted NARRATIVE SKIN EXAM: Pale GENERAL SKIN EXAM: no rashes or lesions noted Course Vital Signs: Vital signs: Vital Signs Temperature 97.4 F L 02/05/25 03:18 Respiratory Rate 18 02/05/25 03:40 Blood Pressure 130/78 02/05/25 03:18 Pulse Oximetry 98 02/05/25 03:40 MDM - Chest Pain Medical Decision Making EKG on the patient's arrival shows significant inferior ST elevation. On reviewing his last EKG from his inpatient stay a few days ago, there was no ST elevation present. STEMI alert was called on the patient's arrival. 2 lines were established. He received 4000 units of heparin, aspirin, and since he had not taken his Plavix, 600 mg of Plavix. Consulted with cardiology via phone. He reviewed the EKGs, and agrees. Cath team is on their way. Current heart rate is 50. Saturation is 98% on room air. Blood pressure 144/65. 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 Vitals were stable on departure. Lab Data 02/05/25 03:22 02/05/25 03:51 Radiology Impressions Chest X-Ray 02/05/25 03:24 IMPRESSION: No acute findings. Laboratory Results WBC 11.33 10^3/uL (3.29-11.43) 02/05/25 03:22 RBC 5.42 10^6/uL (3.85-5.65) 02/05/25 03:22 Hgb 16.40 g/dL (11.27-16.99) 02/05/25 03:22 Hct 47.5 % (37-53) 02/05/25 03:22 MCV 87.6 fl (82-101) 02/05/25 03:22 MCH 30.3 pg (27-33) 02/05/25 03:22 MCHC 34.5 g/dL (30-55) 02/05/25 03:22 RDW 12.4 % (12.1-15.1) 02/05/25 03:22 Plt Count 163 10^3/cmm (157-399) 02/05/25 03:22 MPV 9.6 fL (7.4-10.4) 02/05/25 03:22 Neut % (Auto) 51.4 % 02/05/25 03:22 Lymph % (Auto) 35.7 % 02/05/25 03:22 [place] % (Auto) 7.3 % 02/05/25 03:22 Eos % (Auto) 4.2 % 02/05/25 03:22 Baso % (Auto) 1.1 % 02/05/25 03:22 Neut # (Auto) 5.82 10^3/uL (1.8-7.7) 02/05/25 03:22 Lymph # (Auto) 4.1 10^3/uL (0.8-4.8) 02/05/25 03:22 [place] # (Auto) 0.8 10^3/uL (0.2-0.9) 02/05/25 03:22 Eos # (Auto) 0.5 10^3/uL (0.0-0.8) 02/05/25 03:22 Baso # (Auto) 0.1 10^3/uL (0.0-0.1) 02/05/25 03:22 Nucleated RBC % (auto) 0 % 02/05/25 03:22 Nucleated RBCs # 0.0 /100WBC 02/05/25 03:22 Sodium 134 mmol/L (136-145) L 02/05/25 03:51 Potassium 3.5 mmol/L (3.5-5.1) 02/05/25 03:51 Chloride 99 mmol/L (98-107) 02/05/25 03:51 Carbon Dioxide 21 mmol/L (22-29) L 02/05/25 03:51 Anion Gap 17.5 (5-19) 02/05/25 03:51 BUN 15 mg/dL (8-23) 02/05/25 03:51 Creatinine 1.0 mg/dL (0.7-1.2) 02/05/25 03:51 GFR Calculation 75.0 mL/min (90-130) L 02/05/25 03:51 Glucose 204 mg/dL (65-115) H 02/05/25 03:51 Calculated Osmolality 285 mOsm/kg (285-295) 02/05/25 03:51 Calcium 9.2 mg/dL (8.5-10.5) 02/05/25 03:51 Total Bilirubin 0.5 mg/dL (0.15-1.2) 02/05/25 03:51 AST 24 U/L (0-40) 02/05/25 03:51 ALT 28 U/L (0-41) 02/05/25 03:51 Alkaline Phosphatase 89 U/L (40-130) 02/05/25 03:51 Troponin T Baseline 1526 ng/L (0-15) H* 02/05/25 03:22 NT-Pro-B Natriuret Pep Cancelled 02/05/25 03:22 Total Protein 6.4 g/dL (6.6-8.7) L 02/05/25 03:51 Albumin 3.8 g/dL (3.5-5.2) 02/05/25 03:51 Globulin 2.6 g/dL (1.3-4.6) 02/05/25 03:51 All radiology interpretation(s) finalized by discharge EKG Data EKG 1: Interpretation: EKG performed at 0324 read 0326. Sinus rhythm rate of 60. Right axis deviation. QRS is 115 with IV conduction delay. QTc 392. Significant ST elevation in 2 3 aVF. Critical Care Time Critical Care Time: Critical Care Time: Yes Total Critical Care Time: 35 Attestation: This case had a high probability of a clinically significant, sudden, or life threatening deterioration of this patient's condition which required my full and direct attention, intervention and personal management. Time is independent of any procedures performed. Discharge Plan Discharge Patient Disposition: Admitted As Inpatient Clinical Impression: ST elevation (STEMI) myocardial infarction Qualifiers: Involved coronary artery: right coronary artery Qualified Code(s): I21.11 - ST elevation (STEMI) myocardial infarction involving right coronary artery Condition: Serious Coding Level of Care Code ED Survey Technician for Chg Fwd Heart Score HEART Score Components History: Highly Suspicious EKG: Significant ST-deviation Age: 65 or more yrs Risk Factors: >/=3 Risk Factors Troponin: Baseline Trop >45 ng/L HEART Score RESULT HEART Score: 10
--- NOTE | 2025-02-05 03:55 | XACV_ITS ---
Exam Room: 2 Ht: 168 cm Wt: 77 kg BSA: 1.91 m2 Gender: Male : 1960 Exam Priority: Routine Indication(s): - Acute inferior IL Procedure(s): Procedure Description: Diagnostic procedure Procedure Description: PCI procedure Procedure Description: PTCA Procedure Description: Miscellaneous Procedure Description: ACT Procedure Description: Coronary Angiography Darshan GONZALEZ; Diagnostic Cath Status: Emergency PCI Status: Emergency PCI Indication: Immediate PCI for STEMI Conclusions 1. Mr. Isaac is a noncompliant patient who was recently discharged from the hospital after ST elevation IL when he was treated with drug-eluting stent to RCA. Unfortunately despite of different reminders discussion and refills of 90 days with 4 renewal he stopped taking clopidogrel since his discharge. He presented with chest pain and inferior ST elevation IL. He was noted to have 100% occluded RCA. Coronary angiogram was performed through right radial approachRight coronary artery was engaged with JR guide. It was noted to be 100% occluded. Run-through wire was used to cross into the RCA without much difficulty. Multiple balloon angioplasty using AB trek 3.5 x 15 mm in the midsegment followed by noncompliant Euphora 4.0 x 20 mm balloon and mid to distal segment. It restored good flow. No extra thrombus was noted. Patient was started on Aggrastat after bolus. Since it was stent thrombosis because of noncompliance patient was reloaded with 600 mg of Plavix. NITZA-3 flow was noted at the end of the case. No complication noted.Patient was transferred to the ICU in the stable condition. Recommendations * 1-Return to inpatient for close monitoring and routine cath care 2-Risk factor modification for secondary prevention 3-Statin and aspirin 81 mg life-long, if tolerated 4-Patient was pre-loaded with 600 mg of Plavix, continue Plavix 75mg p.o. daily for at least one year. We will assess at the end of one year again to continue if further or not 5-Continue optimal medical management 6-Follow up with Dr. Sexton in four weeks and your primary care in 10 days. Diagnostic RX Recommendation: PCI w/o planned CABG Pressures Phase:Rest AO : 152 / 65 ( 106 ) @ 4:27:00 AM 135 / 76 ( 101 ) @ 4:32:00 AM Clinical Evaluation EBL: 5mL-10mL Procedural Details Pre-Procedure Time Out. Identified patient by full name and date of as verbalized by the patient/guarantor. Does the consent match the physician's order: N/A Emergent; Informed Consent not obtained due to time critical life threat. Accurate & Complete Informed Consent: N/A Emergent; Informed Consent not obtained due to time critical life threat. Inpatient/Outpatient History & Physical on Chart: N/A Emergent; Informed Consent not obtained due to time critical life threat. If H&P is completed, is and addenduem needed: N/A Emergent; Informed Consent not obtained due to time critical life threat; If yes, is the addendum complete: N/A Emergent; Informed Consent not obtained due to time critical life threat. Visualize and Verify Site with Patient/Guarantor: N/A. Relevant Radiology Images available: N/A Emergent; Informed Consent not obtained due to time critical life threat. Pre-op teaching completed and patient verbalized understanding. The risks, benefits, and alternatives of sedation and/or procedure were discussed by physician. The patient agrees to continue. Procedure started. [facility] Clinical Fraility Score: 4: Vulnerable. Extruding Press Operator Indications: ACS <= 24 hours. Chest Pain Symptom Assessment: Typical Angina Symptoms. Cardiovascular Instability: Yes, if yes, Persistant Ischemic Symptoms. Correct patient, site and procedure confirmed by cath team. Current diagnosis: STEMI. PERRLA. Strong, equal hand kaiako kura kaupapa maori bilaterally. Lungs clear x 5 lobes. IV Site on Arrival: 18 gauge in the right anticubital. IV Fluids: 0.9% NaCl at KVO. 100 mL infused prior to microbiology lab manager. Pre Procedural Pulses: right radial was 3+. Oxygen started at 2liters/min via nasal canula. right groin was prepped with chloroprep then draped in the usual sterile fashion. right radial was prepped with chloroprep then draped in the usual sterile fashion. Baseline sample Acquired. HR: 62 BPM. Physician notified. Patient's family unavailable. Equipment: 6F - Radial. Cardiac Cath Pack. ACIST Manifold Kit Model BT 2000. Heparinized Saline (2 units/mL), 1000 mL bag. Physician arrived. Physician scrubbed in. Immediate Pre-Procedure Time Out. Correct Patient: N/A Emergent; Informed Consent not obtained due to time critical life threat; Correct Procedure: N/A Emergent; Informed Consent not obtained due to time critical life threat; Correct Site: N/A Emergent; Informed Consent not obtained due to time critical life threat; Correct Patient Position: N/A Emergent; Informed Consent not obtained due to time critical life threat; Correct Supplies: N/A Emergent; Informed Consent not obtained due to time critical life threat; Dried Flammable Prep: N/A Emergent; Informed Consent not obtained due to time critical life threat; Blood Products Available: N/A Emergent; Informed Consent not obtained due to time critical life threat;. Lidocaine 1% infiltrated to the right radial. Arterial access obtained. 6 kiswahili JR 4 guide catheter was inserted over the exchange J wire. ACT drawn. Results 159 seconds. Therapeutic limits - pre-heparin administration 90-150 seconds and monitoring heparin during a vascular procedure >250 seconds. Cineography of the RCA perfromed. Runthrough guidewire was advanced through the guide catheter to lesion in the mid LAD. Inflation number : 1 A AB TREK 3.50X15 RX BALLOON was prepped and advanced across the Mid RCA , then inflated to 14 SINDI for 0:10 seconds. Inflation number: 2 The AB TREK 3.50X15 RX BALLOON was reinflated across the Mid RCA, to 18 SINDI for 0:12 seconds. Inflation number: 1 The AB TREK 3.50X15 RX BALLOON was reinflated across the Prox RCA, to 14 SINDI for 0:12 seconds. Balloon out. Results checked. Inflation number : 3 A MDT MADELINE EUPHORA RX [id number] BALLOON was prepped and advanced across the Mid RCA , then inflated to 8 SINDI for 0:14 seconds. Inflation number: 4 The MDT NC EUPHORA RX [id number] BALLOON was reinflated across the Mid RCA, to 14 SINDI for 0:15 seconds. Inflation number: 2 The MDT NC EUPHORA RX 4.75C32CR BALLOON was reinflated across the Prox RCA, to 16 SINDI for 0:12 seconds. PCI Indication : Immediate PCI for STEMI. Balloon out. Results checked. Wire out. Guide catheter out. Dr. Sexton scrubbed out. A TR Band was successful obtaining hemostatsis at the Right Radial artery insertion site. Vital chart was stopped. Post Procedure: Pulses reassessed and unchanged. PERRLA. Strong, equal hand kaiako kura kaupapa maori bilaterally. No VTE prophylaxis required. Medication's Wasted: Lidocaine 1% = 18 mL. Medication's Wasted: Nitro = 50 mg. Medication's Wasted: Heparin = 1000 units. Medication's Wasted: Other = Versed 1 mg. Medication's Wasted: Other = Fentanyl 75 mcg. Total IV fluids: 20 mL. PCI Indication: STEMI. Post-op diagnosis: POBA Prox and Mid RCA for ISR. Complications: none. Estimated blood loss: 5mL-10mL. Responsiveness - Normal response to verbal stimuli; alert and oriented, PERRLA. Airway - Unaffected, no intervention required; spontaneous ventilation. Circulation: W/N/L, pulses unchanged. Nausea/Vomiting: No. Procedure completed. Patient transferred by bed to ICU. Access Site Site: Right Radial artery Sheath Size: 6 Fr Hemostasis Method: TR Band Hemostasis Success: Successful Procedure Medications Start: 4:12 AM Stop: 4:12 AM Medication: Zofran (ondansetron) Amount: 4 mg Route: I.V. Start: 4:17 AM Stop: 4:17 AM Medication: Versed Amount: 1 mg Route: I.V. Start: 4:20 AM Stop: 4:20 AM Medication: Fentanyl Amount: 25 mcg Route: I.V. Start: 4:24 AM Stop: 4:24 AM Medication: Heparin Amount: 5000 units Route: I.V. Start: 4:34 AM Stop: 4:34 AM Medication: Aggrastat 12.5 mg/250 mL Amount: 39 ml Route: I.V. bolus Start: 4:34 AM Stop: 4:34 AM Medication: Aggrastat 12.5 mg/250 mL Amount: 14 ml/hr Route: I.VGisselle knott I, the attending physician, have reviewed and verified all procedure medications. Yes, all medications given per verbal order History/Risk Factors Myocardial Infarction (IL): Yes Tobacco Use: Current/Recent(w/in 1 year) Prior Interventions PCI: Yes CABG: No Date of PCI: 02/01/2025 Report Signatures Finalized by Pastor Sexton MD on 02/12/2025 05:47 PM
[2025-02-05 03:57] LABS: Troponin(5th) Baseline 1526 ng/L (0-15)
--- NOTE | 2025-02-05 04:12 | P.HP_ITS ---
Providers/Chief Complaint 2 Primary Care Provider: Bruna Escobedo DO Chief Complaint: CP History of Present Illness Sheldon Isaac Sr is a 64 year old male medical history significant for illicit drug abuse, continuous tobacco abuse, extensive coronary artery disease with chronically occluded LAD, obesity, hypertension, hyperlipidemia, diabetes mellitus and noncompliance was treated for the ST elevation NM on 01 February 2025. Very next day patient wanted to leave home and left after discussion with extensive emphasis that he will take and compliant to medication including clopidogrel. Patient was given 90 days worth of medicine with 4 refills. Today he presented with chest pain through EMS showing ST elevation NM in the inferior lead, apparently since his discharge patient not taking clopidogrel. Given ST ovation the inferolateral lead we will proceed with emergent left heart cath/PCI if indicated Medications/Allergies Home Medications ?Medication ?Instructions ?Recorded ?Confirmed ?Last Taken ?Type spironolactone 25 mg tablet 25 mg PO DAILY #30 tabs 02/01/25 Unknown Rx aspirin 81 mg tablet,delayed 81 mg PO DAILY #90 tabs 1 04/05/24 Unknown Rx release atorvastatin 80 mg tablet (Lipitor) 80 mg PO BEDTIME # 90 tabs 02/02/25 Unknown Rx clopidogrel 75 mg tablet 75 mg PO DAILY #90 tabs 05/25 Unknown Rx metoprolol tartrate 25 mg tablet 25 mg PO BID #120 tab s 02/02/25 Unknown Rx Allergies Allergy/AdvReac Type Severity Reaction Status Date / Time No Known Allergies Allergy Verified 06/18/24 13:54 PFSH Acute 2 PFSH: Medical History (Updated 02/05/25 @ 03:46 by Dustin Long DO) STEMI (ST elevation myocardial infarction) Lung mass Hemorrhoids Opioid contract exists Leriche syndrome COPD (chronic obstructive pulmonary disease) CAD (coronary atherosclerotic disease) PAD (peripheral artery disease) Dyslipidemia HTN (hypertension) Bipolar disorder 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 Myocardial infarct, old Ischemic cardiomyopathy Tobacco abuse Chest pain, atypical Surgical History 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 Moderate distress HEART: Regular S1 and S2. No murmur, rub or gallop. LUNGS: Clear to auscultate bilaterally. CENTRAL NERVOUS SYSTEM: Grossly nonfocal. EXTREMITIES: Lower extremities with out edema bilaterally. Data 02/05/25 03:22 02/05/25 03:51 A&P Assessment and plan 1. CHF (congestive heart failure): 2. ST elevation (STEMI) myocardial infarction: Plan: Noncompliant patient presented with ST elevation NM was discharged 3 days ago given 3 months worth of medication including clopidogrel despite of detailed discussion and reminders patient did not take his clopidogrel for the last 2 days therefore presented with ST elevation NM of inferior wall. It is the same segment treated with drug-eluting stent on the second of this month. Most likely he has stent acute thrombosis due to noncompliance and inability to take clopidogrel. Will proceed with urgent left heart cath/PCI if indicated. Patient has been loaded with 600 mg of Plavix and 4000 units of heparin. Will give additional heparin and start patient on Aggrastat. Further plan will advise as per progress of the patient. PDMP PDMP Reviewed: Not Reviewed Attestations 2 Medical Necessity Statement*: I am expecting his stay to cross more than 2 midnights Coding Level of Care Code Acute Code for [facility] Diagnoses CHF (congestive heart failure) I50.9 ST elevation (STEMI) myocardial infarction I21.3
[2025-02-05 04:18] LABS: Alanine Aminotransferase 28 U/L (0-41); Albumin Level 3.8 g/dL (3.5-5.2); Alkaline Phosphatase 89 U/L (40-130); Anion Gap 17.5 (5-19); Aspartate Amino Transferase 24 U/L (0-40); Blood Urea Nitrogen 15 mg/dL (8-23); Calcium 9.2 mg/dL (8.5-10.5); Carbon Dioxide 21 mmol/L (22-29); Chloride 99 mmol/L (98-107); Globulin 2.6 g/dL (1.3-4.6); Glucose 204 mg/dL (65-115); Osmolality Calculated 285 mOsm/kg (285-295); Potassium 3.5 mmol/L (3.5-5.1); Sodium 134 mmol/L (136-145); Total Protein 6.4 g/dL (6.6-8.7)
[2025-02-05 04:20] LABS: NT Pro B Type Natriuretic Pept 767 pg/mL (0-125)
--- NOTE | 2025-02-05 04:43 | P.PCN_ITS ---
Procedure Note: Date of procedure: 02/05/25 Pre-procedure diagnosis: ST elevation SC Post-procedure diagnosis: same Procedure: Patient has known anatomy of chronically occluded LAD. Due to inferior ST elevation SC with state went to engage right coronary artery. It was noted to be 100% occluded in the proximal segment reason his noncompliance and inability to take clopidogrel despite of extensive discussion in the past near past and prescription sent to the pharmacy. Right coronary artery was engaged with JR 4 guide run-through wire was crossed through the lesion without any difficulty fresh thrombus was noticed. Aggrastat and extra heparin was given. Multiple balloon angioplasty using 3 5 and 4.0x15 noncompliant balloon were performed at high atmosphere. Excellent angiographic result with pentecostal of NITZA-3 flow was noted. Patient tolerated procedure well and now being transferred to ICU. Plan: Continue Aggrastat until run out of bag Patient has been loaded with 600 mg Plavix and 324 milligram of aspirin in the ED/EMS Continue IV fluid 100 mL/h Wristband will be taken off as per protocol Full note to be dictated Patient will be transferred to ICU Coding Level of Care Code Acute Code for Katarzyna Ruth
--- NOTE | 2025-02-05 05:24 | ECG_ITS ---
[facility] Test Date: 2025-02-05 Pat Name: Sheldon Isaac Department: Room: ICU10 Gender: Male Sales Assistant: : 1960 Requested By: Dustin Back Order Number: [id number] Diane MD: ROSIE EPPERSON Measurements Intervals [place] Rate: 55 P: 63 MT: 146 QRS: 93 QRSD: 104 T: -40 QT: 424 QTc: 407 Interpretive Statements SINUS BRADYCARDIA WITH OCCASIONAL VENTRICULAR PREMATURE COMPLEXES BORDERLINE RIGHT AXIS DEVIATION [QRS AXIS > 90] MARKED ST ELEVATION, CONSIDER INFERIOR INJURY [MARKED ST ELEVATION W/O NORMALLY INFLECTED T-WAVE IN II/aVF] ACUTE VA Compared to ECG 02/05/2025 03:20:46 Ventricular premature complex(es) now present Sinus rhythm no longer present Intraventricular conduction delay no longer present ST (T wave) deviation still present Myocardial infarct finding still present Electronically Signed On 02-05-2025 18:40:01 TOLL LINEMAN by ROSIE EPPERSON [email or web address]
--- NOTE | 2025-02-05 07:19 | PC.NURSE ---
Aggrastat: Aggrastat from cathead operator infused at this time.
--- NOTE | 2025-02-05 08:50 | ECG_ITS ---
[facility] [employer] Test Date: 2025-02-05 Pat Name: Sheldon Isaac Department: Room: ICU10 Gender: Male Construction Consultant: : 1960 Requested By: Dustin Back Order Number: [id number] Reading MD: ROSIE EPPERSON Measurements Intervals [place] Rate: 63 P: 56 WV: 141 QRS: 90 QRSD: 104 T: -58 QT: 433 QTc: 445 Interpretive Statements SINUS RHYTHM WITH OCCASIONAL VENTRICULAR PREMATURE COMPLEXES LOW QRS VOLTAGE IN PRECORDIAL LEADS [QRS DEFLECTION < 1.0 mV IN CHEST LEADS] POSSIBLE INFERIOR MYOCARDIAL INFARCTION , OF INDETERMINATE AGE [30 ms Q WAVE IN II/aVF] MODERATE T-WAVE ABNORMALITY, CONSIDER ANTEROLATERAL ISCHEMIA [-0.1+ mV T-WAVE IN V3-V6] Compared to ECG 02/05/2025 05:05:38 Low QRS voltage now present T-wave abnormality now present Possible ischemia now present Electronically Signed On 02-05-2025 18:39:57 POLICE OFFICER by ROSIE EPPERSON [email or web address]
[2025-02-05 08:55] LABS: Hematocrit 44.6 % (37-53); Hemoglobin 14.60 g/dL (11.27-16.99); Mean Corpuscular HGB Conc 32.7 g/dL (30-55); Mean Corpuscular Hemoglobin 30.4 pg (27-33); Mean Corpuscular Volume 92.7 fl (82-101); Platelet Count 157 10^3/cmm (157-399); Red Blood Count 4.81 10^6/uL (3.85-5.65); White Blood Count 8.54 10^3/uL (3.29-11.43)
[2025-02-05 09:42] LABS: Absolute Segmented Neutrophil 6.4 10/cmm (1.6-7.1); Atypical Lymphs 0.0 % (0-5); Band Neutrophils Absolute 0.0 10^3/cmm (0.0-1.2); Total Cells Counted 100 (0-100)
[2025-02-05 09:44] LABS: Troponin 5 6HR 2361 ng/L (0-15); Troponin 5 6HR Delta 835 ng/L (0-12)
--- NOTE | 2025-02-05 10:30 | PC.PHAR ---
Patient was prescribed Brilanta , but can't afford it. Patient states he has not taken his medication since week before last . Patient states he had his medication picked up yesterday 02/04/25 , but had to come to the hospital so he didn't take it.
--- NOTE | 2025-02-05 14:06 | PC.NURSE ---
TR band: TR band removed, dressing in place. Delay in removal due to bleeding. Dressing is dry at the time of this note.
--- NOTE | 2025-02-05 18:03 | P.PN_ITS ---
Subjective 2 Subjective: Denies any complaint denies chest pain Vitals/I&O/Wt Last Vital Signs Temp 98.2 F 02/05/25 17:47 Pulse 75 02/05/25 17:45 Resp 14 02/05/25 17:45 BP 128/67 02/05/25 17:30 Pulse Ox 97 02/05/25 17:45 O2 Del Method Nasal Cannula 02/05/25 17:45 O2 Flow Rate 1 02/05/25 17:45 02/05/25 02/05/25 02/05/25 06:59 14:59 22:59 Intake Total 0 / 0 1393.667 / 1393.667 200 / 1593.667 Output Total 300 / 300 Balance 0 / 0 1393.667 / 1393.667 -100 / 1293.667 Weight last 48 hrs Weight 179 lb 6 oz Weight 179 lb 6 oz Weight 170 lb 1.6 oz Physical Exam 2 Const: OTHER: GENERAL: Patient is alert, awake and oriented x3. Moderate distress HEART: Regular S1 and S2. No murmur, rub or gallop. LUNGS: Clear to auscultate bilaterally. CENTRAL NERVOUS SYSTEM: Grossly nonfocal. EXTREMITIES: Lower extremities with out edema bilaterally. Data 02/05/25 08:43 02/05/25 03:51 A&P Assessment and plan 1. CHF (congestive heart failure): 2. ST elevation (STEMI) myocardial infarction: Plan: Status post balloon angioplasty of the proximal to distal RCA for acute stent thrombosis due to noncompliance of not taking clopidogrel despite of prescription and discussion Advised patient to be compliant, he promised to do so Continue current management He is off Aggrastat Will optimize medications PDMP PDMP Reviewed: Not Reviewed Attestations 2 Medical Necessity Statement*: Patient require continuation of hospitalization for above defined care Coding Level of Care Code Acute Code for [facility] Diagnoses CHF (congestive heart failure) I50.9 ST elevation (STEMI) myocardial infarction I21.11 Involved coronary artery: right coronary artery
[2025-02-06] VITALS (18 sets, daily range): BP systolic 101–157; BP diastolic 43–105; PULSE 67–84; RESP 12–26; TEMP 36.6–37.1; O2SAT 92–98; BMI 29.7
[2025-02-06 04:20] LABS: Hematocrit 38.6 % (37-53); Hemoglobin 13.10 g/dL (11.27-16.99); Mean Corpuscular HGB Conc 33.9 g/dL (30-55); Mean Corpuscular Hemoglobin 30.0 pg (27-33); Mean Corpuscular Volume 88.3 fl (82-101); Nucleated Red Blood Cells % 0 %; Platelet Count 147 10^3/cmm (157-399); Red Blood Count 4.37 10^6/uL (3.85-5.65); White Blood Count 7.84 10^3/uL (3.29-11.43)
[2025-02-06 04:39] LABS: Anion Gap 12.7 (5-19); Blood Urea Nitrogen 10 mg/dL (8-23); Calcium 8.4 mg/dL (8.5-10.5); Carbon Dioxide 25 mmol/L (22-29); Chloride 102 mmol/L (98-107); Creatinine Clr Calc Pharmacy 81.9736; Glucose 124 mg/dL (65-115); Osmolality Calculated 282 mOsm/kg (285-295); Potassium 3.7 mmol/L (3.5-5.1); Sodium 136 mmol/L (136-145)
--- NOTE | 2025-02-06 13:14 | P.DS_ITS ---
<Statement entered by Pastor Sexton MD - 02/20/25 21:59> Patient was evaluated and cared for in conjunction with an advanced practice practitioner. I personally examined the patient and reviewed the chart and all pertinent data including imaging, telemetry, and laboratory results. I discussed the patient in detail with the advanced practice practitioner. Please see their note for complete H&P testing result and agreed upon plan of care for the patient. Discharge Providers Date of Admission: 02/05/25 05:01 Date of Discharge: February 06, 2025 Attending Provider at Admission: Pastor Sexton MD Attending Provider at Discharge: Pastor Sexton MD Primary Care Provider: Bruna Escobedo DO Diagnoses at Discharge Discharge Diagnosis 1. CHF (congestive heart failure): 2. ST elevation (STEMI) myocardial infarction: Reason for Visit Reason for Visit: CP Hospital Course Hospital Course 64-year-old male past medical history significant for noncompliance illicit drug abuse, tobacco abuse hypertension hyperlipidemia history of myocardial infarct ion recently discharged from the hospital 3 to [address] elevation PR when RCA was treated with drug-eluting stent. Despite of multiple education session and discussion on necessity of taking dual antiplatelet therapy in the form of clopidogrel and aspirin patient did not take clopidogrel at home and presented with acute stent thrombosis. He was taken [facility] to the [facility] treated with balloon angioplasty given Aggrastat. He was again loaded with 600 mg of Plavix and 325 mg of aspirin. His medications were optimized. Postop care remains uncomplicated. We today again have discussion and educated him about necessity of taking dual antiplatelet therapy in the form of clopidogrel and aspirin and advised to refrain from illicit drug use and smoking. Patient understood and would like to do that. He was last time refill with 90 days worth of medication including clopidogrel and aspirin with 4 refills according to the patient he has those medicine at home and will take them. Patient clearly understand that in case of not taking medicine it can lead to stent thrombosis reinfarction arrhythmia and worst-case scenario . He is being discharged home. Physical Exam Const: OTHER: GENERAL: Patient is alert, awake and oriented x3. HEART: Regular S1 and S2. No murmur, rub or gallop. LUNGS: Clear to auscultate bilaterally. CENTRAL NERVOUS SYSTEM: Grossly nonfocal. EXTREMITIES: Lower extremities with out edema bilaterally. Discharge Data Studies Completed and Pending Completed Studies During Hospitalization Category Date Time Status XR chest 1V portable [id number] Stat Exams 02/05/25 03:24 Completed Pending at discharge Category Date Time Status NATUROPATHIC DOCTOR request for service Routine Exams 02/05/25 03:55 Ordered Radiology Impressions Chest X-Ray 02/05/25 03:24 IMPRESSION: No acute findings. Laboratory Results WBC 7.84 10^3/uL (3.29-11.43) 02/06/25 03:22 RBC 4.37 10^6/uL (3.85-5.65) 02/06/25 03:22 Hgb 13.10 g/dL (11.27-16.99) 02/06/25 03:22 Hct 38.6 % (37-53) 02/06/25 03:22 MCV 88.3 fl (82-101) 02/06/25 03:22 MCH 30.0 pg (27-33) 02/06/25 03:22 MCHC 33.9 g/dL (30-55) 02/06/25 03:22 RDW 11.9 % (12.1-15.1) L 02/06/25 03:22 Plt Count 147 10^3/cmm (157-399) L 02/06/25 03:22 MPV 9.7 fL (7.4-10.4) 02/06/25 03:22 Neut % (Auto) 65.1 % 02/06/25 03:22 Lymph % (Auto) 24.0 % 02/06/25 03:22 [place] % (Auto) 7.0 % 02/06/25 03:22 Eos % (Auto) 3.1 % 02/06/25 03:22 Baso % (Auto) 0.5 % 02/06/25 03:22 Neut # (Auto) 5.11 10^3/uL (1.8-7.7) 02/06/25 03:22 Lymph # (Auto) 1.9 10^3/uL (0.8-4.8) 02/06/25 03:22 [place] # (Auto) 0.6 10^3/uL (0.2-0.9) 02/06/25 03:22 Eos # (Auto) 0.2 10^3/uL (0.0-0.8) 02/06/25 03:22 Baso # (Auto) 0.0 10^3/uL (0.0-0.1) 02/06/25 03:22 Nucleated RBC % (auto) 0 % 02/06/25 03:22 Total Counted 100 (0-100) 02/05/25 08:43 Atypical Lymphs % 0.0 % (0-5) 02/05/25 08:43 Absolute Neutrophils 6.4 10^3/cmm (1.4-6.5) 02/05/25 08:43 Segmented Neutrophils 75 % 02/05/25 08:43 Band Neutrophils 0.0 % 02/05/25 08:43 Absolute Lymphocytes 1.5 10^3/cmm (1.2-3.4) 02/05/25 08:43 Lymphocytes (Manual) 18 % 02/05/25 08:43 Monocytes (Manual) 7.0 % 02/05/25 08:43 Absolute Monocytes 0.6 10^3/cmm (0.1-0.6) 02/05/25 08:43 Eosinophils (Manual) 0 % 02/05/25 08:43 Absolute Eosinophils 0.0 10^3/cmm (0.0-0.7) 02/05/25 08:43 Basophils (Manual) 0.0 % 02/05/25 08:43 Absolute Basophils 0.0 10^3/cmm (0.0-0.2) 02/05/25 08:43 Nucleated RBCs # 0.0 /100WBC 02/06/25 03:22 Platelet Estimate Normal (Normal) 02/05/25 08:43 Sodium 136 mmol/L (136-145) 02/06/25 03:22 Potassium 3.7 mmol/L (3.5-5.1) 02/06/25 03:22 Chloride 102 mmol/L (98-107) 02/06/25 03:22 Carbon Dioxide 25 mmol/L (22-29) 02/06/25 03:22 Anion Gap 12.7 (5-19) 02/06/25 03:22 BUN 10 mg/dL (8-23) 02/06/25 03:22 Creatinine 0.9 mg/dL (0.7-1.2) 02/06/25 03:22 GFR Calculation 84.7 mL/min (90-130) L 02/06/25 03:22 Glucose 124 mg/dL (65-115) H 02/06/25 03:22 Calculated Osmolality 282 mOsm/kg (285-295) L 02/06/25 03:22 Calcium 8.4 mg/dL (8.5-10.5) L 02/06/25 03:22 Total Bilirubin 0.5 mg/dL (0.15-1.2) 02/05/25 03:51 AST 24 U/L (0-40) 02/05/25 03:51 ALT 28 U/L (0-41) 02/05/25 03:51 Alkaline Phosphatase 89 U/L (40-130) 02/05/25 03:51 Troponin T Baseline 1526 ng/L (0-15) H* 02/05/25 03:22 Troponin T 120 Minute 1994 ng/L (0-15) H 02/05/25 05:28 Delta Troponin T 468 ABS# (0-10) H* 02/05/25 05:28 Troponin T Hi Sens 6Hr 2361 ng/L (0-15) H 02/05/25 08:43 Troponin T Hi Sens 6Hr Delta 835 ng/L (0-12) H* 02/05/25 08:43 NT-Pro-B Natriuret Pep 767 pg/mL (0-125) H 02/05/25 03:51 Total Protein 6.4 g/dL (6.6-8.7) L 02/05/25 03:51 Albumin 3.8 g/dL (3.5-5.2) 02/05/25 03:51 Globulin 2.6 g/dL (1.3-4.6) 02/05/25 03:51 Vitals Last Vital Signs Temp 97.8 F 02/06/25 09:07 Pulse 72 02/06/25 12:08 Resp 21 H 02/06/25 12:08 BP 130/58 02/06/25 12:00 Pulse Ox 98 02/06/25 12:08 O2 Del Method Room Air 02/06/25 12:08 O2 Flow Rate 1 02/05/25 18:59 Discharge Plan Discharge Patient Disposition: Home Condition: Serious Prescriptions: Continued atorvastatin [Lipitor] 80 mg tablet 80 mg PO BEDTIME Qty: 90 3RF aspirin 81 mg Tablet,Delayed Release (Dr/Ec) 81 mg PO DAILY Qty: 90 3RF clopidogrel 75 mg Tablet 75 mg PO DAILY Qty: 90 3RF metoprolol tartrate 25 mg tablet 25 mg PO BID Qty: 120 3RF Charger OK for DC: Cardiology Discharge Order = DC NOW: Discharge Order (Routine); Ordered 02/06/25 Ordered By: Pastor Sexton Patient Instructions: Metoprolol (By mouth), Aspirin (By mouth), Atorvastatin (By mouth) (Lipitor, Atorvaliq), Clopidogrel (By mouth) (Plavix), How to Stop Smoking (DC), Low-Sodium Diet (DC), Opioid Safety, Patient Portal & Katina Instructions Discharge Attestations Time Spent in Discharge Care*: greater than 30 min Quality Metrics Clinical Quality Measures [ Acute Myocardial Infaction { Clinical Trial Participant: No; Contraindication to aspirin: None; Aspirin prescribed; Contraindication to statin: None; Statin prescribed;}] Coding Level of Care Code Acute Code for [facility] Diagnoses CHF (congestive heart failure) I50.9 ST elevation (STEMI) myocardial infarction I21.11 Involved coronary artery: right coronary artery
--- NOTE | 2025-02-06 13:52 | PC.NURSE ---
Extensive education provided to patient on home medications, keeping appointments with cardiology, following recommended diet, stop smoking, and S/S to call 911. Patient provided with cardiac stoplight flyer. Patient expressed that he understood all teachings. demonstrates understanding via teach back method. Patient and I had discussions about how to stop illicit drug use. Patient ambulated to personal vehicle.
== END 2025-02-06 13:57 | disposition home or self-care (01) | DRG 250 ==
LOC: ER 03:30 → CCL 03:30 → ICU 05:06
PROVIDERS: Admitting Provider Internal Medicine Cardiovascular Disease; Emergency Provider Emergency Medicine; PCP Family Medicine; Visit Provider Internal Medicine Cardiovascular Disease
PROC: 02703ZZ Dilation of Coronary Artery, One Artery, Percutaneous Approach (ICD-10-PCS; principal; 2025-02-05 04:00)
PROC: 02703ZZ Dilation of Coronary Artery, One Artery, Percutaneous Approach (ICD-10-PCS; 2025-02-05 04:00)
DX: T82.867A Thrombosis due to cardiac prosthetic devices, implants and grafts, initial encounter (principal); I21.11 ST elevation (STEMI) myocardial infarction involving right coronary artery; I74.09 Other arterial embolism and thrombosis of abdominal aorta; Y71.8 Miscellaneous cardiovascular devices associated with adverse incidents, not elsewhere classified; I50.9 Heart failure, unspecified; I11.0 Hypertensive heart disease with heart failure; F15.10 Other stimulant abuse, uncomplicated; F17.210 Nicotine dependence, cigarettes, uncomplicated; E78.5 Hyperlipidemia, unspecified; I25.10 Atherosclerotic heart disease of native coronary artery without angina pectoris; T45.526A Underdosing of antithrombotic drugs, initial encounter; Z91.128 Patient's intentional underdosing of medication regimen for other reason; R91.8 Other nonspecific abnormal finding of lung field; K64.9 Unspecified hemorrhoids; J44.9 Chronic obstructive pulmonary disease, unspecified; E11.9 Type 2 diabetes mellitus without complications; E66.9 Obesity, unspecified; I25.5 Ischemic cardiomyopathy; N52.9 Male erectile dysfunction, unspecified; F31.9 Bipolar disorder, unspecified; Z68.29 Body mass index [BMI] 29.0-29.9, adult; Z79.02 Long term (current) use of antithrombotics/antiplatelets
CPT/HCPCS: 36415; 71045; 80048; 80053; 83880; 84484; 85007; 85025; 85027; 85347; 92920; 93005; 93454; 96374; 96375; 99152; 99153; 99291; C1725; C1769; C1887; C1894; J0461; J1644; J2250; J2270; J2405; J3010; J3490; J7030; J9999; Q9967